=== PATIENT | female | born 1985 | race Two or more races ===

== ENCOUNTER 2019-12-22 14:21 | Outpatient (REF) | payer MEDICARE, MEDICAID, SELFPAY | END 2019-12-22 14:22 | disposition home or self-care (01) | LOC: HO.LAB 14:21 | PROVIDERS: PCP Registered Nurse; Visit Provider Internal Medicine | DX: Z20.828 Contact with and (suspected) exposure to other viral communicable diseases (principal) | CPT/HCPCS: C9803; U0003 ==

== ENCOUNTER 2020-06-04 11:31 | Outpatient (REF) | payer MEDICAID, SELFPAY ==
[2020-06-04 13:01] LABS: COVID-19 Test Negative (Negative)
== END 2020-06-04 11:32 | disposition home or self-care (01) ==
LOC: HO.LAB 11:31
PROVIDERS: Visit Provider Internal Medicine
DX: Z20.822 Contact with and (suspected) exposure to COVID-19 (principal)
CPT/HCPCS: 36415; 87635; C9803

== ENCOUNTER 2020-06-08 16:19 | Emergency (ER) | payer MEDICAID, SELFPAY ==
--- NOTE | ~2020-06-08 | CT_ITS ---
EXAMINATION: CT ANGIOGRAM BRAIN, HEAD CLINICAL INFORMATION: headaches, balance issues, s/p J J shot COMPARISON: None TECHNIQUE: Test bolus sequences followed by intravenous administration 70 mL of Omnipaque 350 intravenous contrast. Helical imaging was performed in the axial plane from the skull base to the vertex. Delayed postcontrast imaging of the head was also performed. The data was processed at the dental technologist workstation for generation of MIP sequences. Three-dimensional volume rendered reformatted images were also generated at an offline 3-D workstation. This CT examination was performed using dose optimization techniques as appropriate, variously including the following: *Automated exposure control *Adjustment of mA and/or kV according to patient size (this includes techniques or standardized protocols for targeted exams where dose is matched to indication/reason for exam; i.e. extremities or head) *Use of iterative reconstruction technique DLP: 2217 mGy-cm FINDINGS: CT head: There is no intracranial hemorrhage, extra-axial collection, mass effect, or territorial infarction. An area of hypoattenuation is seen along the lateral aspect of the left posterior temporal lobe as demonstrated on series 5 image 13/48. However, on the postcontrast images, no definite abnormal hypoattenuation is seen within this region suggesting the finding is artifactual. No abnormal enhancement is seen on the postcontrast images. The imaged portions of the paranasal sinuses and mastoid air cells are clear. Head CTA: The anterior and posterior circulations appear patent without stenosis. No aneurysm is seen. On the delayed images, the superficial and deep dural venous sinuses appear patent without filling defect to suggest thrombus. The left transverse/sigmoid sinus is nondominant and difficult to evaluate the inferior aspect of the skull base due to poor opacification. CT/CT angio head IMPRESSION: No intracranial abnormality identified.
[2020-06-08 17:07] VITALS: BP 110/51; PULSE 78; RESP 18; TEMP 36.6; O2SAT 100; BMI 20.2
[2020-06-08 18:18] LABS: MANUAL DIFF FLAG NO
[2020-06-08 18:38] VITALS: BP 129/79; PULSE 83; RESP 15; TEMP 37; O2SAT 99
[2020-06-08 18:39] LABS: Basophils Absolute Auto 0.1 X10*3/uL (0.0-0.2); Basophils Percent Auto 0.7 % (0-2); Eosinophils Absolute Auto 0.1 X10*3/uL (0.0-0.4); Eosinophils Percent Auto 1.2 % (0-4); Hematocrit 36.2 % (37-47); Hemoglobin 12.3 g/dl (12.0-16.0); Imm Gran Abs Auto 0.01 X10*3/uL (0.00-0.03); Imm Gran Pct Auto 0.1 % (0.0-0.4); Lymphocytes Absolute Auto 2.3 X10*3/uL (1.2-4.9); Lymphocytes Percent Auto 30.9 % (20-40); Mean Corpuscular Hemoglobin 31.5 pg (27.0-33.0); Mean Corpuscular Volume 92.8 fL (80-98); Mean Platelet Volume 9.6 fL (9.4-12.3); Monocytes Absolute Auto 0.3 X10*3/uL (0.1-1.2); Monocytes Percent Auto 3.7 % (2-11); Neutrophils Absolute Auto 4.7 X10*3/uL (2.0-8.3); Neutrophils Percent Auto 63.4 % (45-73); Platelet Count 277 X10*3/uL (160-400); Red Cell Distribution Width 12.3 % (11.0-16.0); White Blood Count 7.4 X10*3/uL (4.8-10.8)
[2020-06-08 18:44] LABS: Anion Gap 11 (12-20); Blood Urea Nitrogen 7 mg/dL (9-16); Calcium 9.4 mg/dL (8.4-10.2); Carbon Dioxide 28 mmol/L (22-29); Chloride 105 mmol/L (96-108); Creatinine Clr Calc Pharmacy 77.9; Estimated Glomerular Filt Rate > 60; Glucose Random 83 mg/dL (60-115); Sodium 140 mmol/L (135-145)
--- NOTE | 2020-06-08 18:51 | ED_ITS ---
HPI - Headache General Chief Complaint: Headache Stated Complaint: Headache Time Seen by Provider: 06/08/20 18:38 Source: patient Mode of arrival: ambulatory Limitations: no limitations History of Present Illness HPI Narrative: 35 y/o female with history of HIV on HAART with undetectable viral load presents to the ED with on/off headaches for the last 5 days. She described them as pressure and they are located all over her head. At the worst they are a 5/10 and bothersome. She is sensitive to light. She received the J&J COVID vaccination on 05/14 and she is very concerned she has a blood clot. She also reports issues with her balance. Her mother had history of strokes and she reports having a brain MRI done 1 year ago at [facility] and it was normal. She denies weakness, numbness, tingling, neck pain, fever, or chills. She currently has no headache. She only tried 1 dose of Tylenol 500 mg for the headache in the last 5 days. MD elicited complaint: headache Pertinent past history: HIV Onset (ago): day(s) (5) Onset description: gradually Location: generalized Severity: moderate Pain scale (0-10): 5 Quality & Timing: squeezing and progressively worsening Exacerbating factors: light Relieving factors: rest Context: new medication (COVID vaccine) Associated symptoms: none Treatments prior to arrival: none Related Data Allergies Allergy/AdvReac Type Severity Reaction Status Date / Time No Known Allergies Allergy Verified 06/08/20 17:07 Review of Systems Review of Systems: Constitutional: No Fever, No Chills ENT/Mouth: No sore throat, No Rhinorrhea, No Swallowing Difficulty Eyes: No Eye Pain, No Swelling, No Redness Cardiovascular: No Chest Pain, No SOB, No Orthopnea, No Edema Respiratory: No Cough, No Sputum, No Wheezing, No dyspnea Gastrointestinal: No Nausea, No Vomiting, No Diarrhea, No abdominal Pain Genitourinary: No Dysuria, No Urinary Frequency, No Hematuria Musculoskeletal: No joint pain, No Myalgias Skin: No Skin Lesions, No rash Neuro: No Weakness, No Numbness, No Dizziness, + Headache Psych: No Anxiety/Panic, No Depression Heme/Lymph: No Bruising, No Lymphadenopathy Endocrine: No Polyuria, No Polydipsia PMFSH Past Medical History Attestation statement: The following information was validated with the patient. Medical History HIV (human immunodeficiency virus infection) Social History Social History Alcohol intake: never Smoking Status: Never smoker Use of substances other than those prescribed or required for medical reasons: No Advance Directives: No Advance Directives Information Provided: Yes Physical Exam Vital Signs: Vital Signs: Last Vital Signs Temp 98.1 F 06/08/20 20:20 Pulse 70 06/08/20 20:20 Resp 16 06/08/20 20:20 BP 102/63 06/08/20 20:20 Pulse Ox 99 06/08/20 20:20 Body Mass Index 20.2 Appearance: Alert. Oriented X3. No acute distress. Eyes: Pupils equal, round and reactive to light. ENT: Pharynx normal. Neck: Normal inspection. Neck supple. CVS: Normal heart rate and rhythm. Pulses normal. Respiratory: No respiratory distress. Breath sounds normal. Abdomen: Soft and nontender. +BS x4 Skin: Skin warm and dry. Normal skin color. Normal skin turgor. No rashes. Extremities: No lower extremity edema. Neuro: Oriented X 3. No motor deficit. No sensory deficit. Ambulates with steady gait. NIH Stroke Scale Internal: Initial- Upon Arrival Level of Consciousness: Alert Level of Consciousness Questions: Answers both questions correctly Level of Consciousness Commands: Performs both tasks correctly Best Gaze: Normal Visual: No visual loss Facial Palsy: Normal Motor Arm (Right): No drift Motor Arm (Left): No drift Motor Leg (Right): No drift Motor Leg (Left): No drift Limb Ataxia: Absent Sensory: Normal Best Language: No aphasia Dysarthia: Normal Extinction and Inattention: No abnormality Score: 0 Course Course Course Narrative: 35 y/o female presenting with 5 days of headache after receiving the J&J COVID vaccine 3+ weeks ago. Also reports balance issues over the last several months. Had normal blood work with her PCP after this was reported to them. Very much doubt cavernous sinus thrombosis, however given her severe anxiety about it & report of balance disturbance, will proceed with CT brain. Reevaluation(s) Reevaluation #1: CT scan is negative. Labs are unremarkable. Neuro exam is nonfocal and she remains headache free. She is stable for discharge with plan to f/u with PCP. MDM - Headache Lab Data Result diagrams: 06/08/20 18:07 04/30/21 18:07 Labs: Lab Results 06/08/20 06/08/20 06/08/20 Range/Units 18:07 18:07 18:07 WBC 7.4 (4.8-10.8) X10*3/uL RBC 3.90 L (4.20-5.50) X10*6/uL Hgb 12.3 (12.0-16.0) g/dl Hct 36.2 L (37-47) % MCV 92.8 (80-98) fL MCH 31.5 (27.0-33.0) pg MCHC 34.0 (31.0-35.0) g/dl RDW 12.3 (11.0-16.0) % Plt Count 277 (160-400) X10*3/uL MPV 9.6 (9.4-12.3) fL Immature Gran % (Auto) 0.1 (0.0-0.4) % Neut % (Auto) 63.4 (45-73) % Lymph % (Auto) 30.9 (20-40) % [place] % (Auto) 3.7 (2-11) % Eos % (Auto) 1.2 (0-4) % Baso % (Auto) 0.7 (0-2) % Lymph # (Auto) 2.3 (1.2-4.9) X10*3/uL [place] # (Auto) 0.3 (0.1-1.2) X10*3/uL Eos # (Auto) 0.1 (0.0-0.4) X10*3/uL Baso # (Auto) 0.1 (0.0-0.2) X10*3/uL Abs Immat Gran (auto) 0.01 (0.00-0.03) X10*3/uL Absolute Neuts (auto) 4.7 (2.0-8.3) X10*3/uL Absolute Nucleated RBC 0.000 (0.0-0.012) X10*3/uL Nucleated RBC % (auto) 0.0 (0.0-0.2) /100WBC Hold Blue Top SEE NOTE Sodium 140 (135-145) mmol/L Potassium 4.0 (3.3-5.1) mmol/L Chloride 105 (96-108) mmol/L Carbon Dioxide 28 (22-29) mmol/L Anion Gap 11 L (12-20) BUN 7 L (9-16) mg/dL Creatinine 0.68 (0.5-1.4) mg/dL Estim Creat Clear Calc 77.9 Estimated GFR > 60 Random Glucose 83 (60-115) mg/dL Calcium 9.4 (8.4-10.2) mg/dL Urine Color Urine Appearance Urine pH (5.0-8.0) Ur Specific [place] (1.005-1.025) Urine Protein (NEG-TRACE) MG/DL Urine Glucose (UA) (NEG) MG/DL Urine Ketones (NEG) MG/DL Urine Blood (NEG) Urine Nitrite (NEG) Ur Leukocyte Esterase (NEG) Urine RBC (0) /HPF Urine WBC (0-4) /HPF Ur Squamous Epith Cells /LPF Urine Bacteria /LPF Urine Test (NEGATIVE) 06/08/20 06/08/20 Range/Units 19:52 19:53 WBC (4.8-10.8) X10*3/uL RBC (4.20-5.50) X10*6/uL Hgb (12.0-16.0) g/dl Hct (37-47) % MCV (80-98) fL MCH (27.0-33.0) pg MCHC (31.0-35.0) g/dl RDW (11.0-16.0) % Plt Count (160-400) X10*3/uL MPV (9.4-12.3) fL Immature Gran % (Auto) (0.0-0.4) % Neut % (Auto) (45-73) % Lymph % (Auto) (20-40) % [place] % (Auto) (2-11) % Eos % (Auto) (0-4) % Baso % (Auto) (0-2) % Lymph # (Auto) (1.2-4.9) X10*3/uL [place] # (Auto) (0.1-1.2) X10*3/uL Eos # (Auto) (0.0-0.4) X10*3/uL Baso # (Auto) (0.0-0.2) X10*3/uL Abs Immat Gran (auto) (0.00-0.03) X10*3/uL Absolute Neuts (auto) (2.0-8.3) X10*3/uL Absolute Nucleated RBC (0.0-0.012) X10*3/uL Nucleated RBC % (auto) (0.0-0.2) /100WBC Hold Blue Top Sodium (135-145) mmol/L Potassium (3.3-5.1) mmol/L Chloride (96-108) mmol/L Carbon Dioxide (22-29) mmol/L Anion Gap (12-20) BUN (9-16) mg/dL Creatinine (0.5-1.4) mg/dL Estim Creat Clear Calc Estimated GFR Random Glucose (60-115) mg/dL Calcium (8.4-10.2) mg/dL Urine Color YELLOW Urine Appearance CLEAR Urine pH 6.5 (5.0-8.0) Ur Specific [place] 1.020 (1.005-1.025) Urine Protein NEG (NEG-TRACE) MG/DL Urine Glucose (UA) NEG (NEG) MG/DL Urine Ketones 15 (NEG) MG/DL Urine Blood TRACE (NEG) Urine Nitrite NEG (NEG) Ur Leukocyte Esterase NEG (NEG) Urine RBC 0-2 (0) /HPF Urine WBC 0 (0-4) /HPF Ur Squamous Epith Cells NONE /LPF Urine Bacteria NONE /LPF Urine Test NEGATIVE (NEGATIVE) Discharge Plan Discharge Clinical Impression: Headache Qualifiers: Headache type: unspecified Headache chronicity pattern: acute headache Intractability: not intractable Qualified Code(s): R51.9 - Headache, unspecified Patient Disposition: Home, Self-Care Instructions: General Headache (ED) Additional Instructions: Your blood workup today was unremarkable. Your urine test showed no evidence of infection. Your CT scan of your brain was normal. Recommend trial of Tylenol 975 mg every 6 hours as needed for headaches. You can also try ibuprofen 600 mg every 6 hours as needed. If any of your symptoms worsen come back to the ER for further evaluation.
[2020-06-08 20:07] LABS: Glucose Urine UA NEG (NEG); Leukocyte Esterase Urine NEG (NEG); Nitrite Urine NEG (NEG); PH 6.5 (5.0-8.0); Urine Blood TRACE (NEG); Urine Ketones 15 MG/DL (NEG); Urine Protein NEG (NEG-TRACE)
[2020-06-08 20:13] LABS: Appearance Urine CLEAR; Color Urine YELLOW
[2020-06-08 20:14] LABS: UPreg QC Valid YES; Urine Pregnancy NEGATIVE (NEGATIVE)
[2020-06-08 20:18] LABS: RBC Urine 0-2 /HPF (0); WBC Urine 0 /HPF (0-4)
[2020-06-08 20:20] VITALS: BP 102/63; PULSE 70; RESP 16; TEMP 36.7; O2SAT 99
[2020-06-08] MEDS: iohexoL 350 MG/ML 100 ML INFUS..BTL IV (20:44)
== END 2020-06-08 21:58 | disposition home or self-care (01) ==
PROVIDERS: Physician Assistant; Emergency Provider Internal Medicine; PCP Registered Nurse
DX: R51.9 Headache, unspecified (principal); B20 Human immunodeficiency virus [HIV] disease
CPT/HCPCS: 36415; 70496; 80048; 81001; 81025; 85025; 99284; 99285; Q9967

== ENCOUNTER 2020-09-04 21:32 | Emergency (ER) | payer MEDICAID, SELFPAY ==
--- NOTE | ~2020-09-04 | XR_ITS ---
EXAMINATION: XR CERVICAL SPINE CLINICAL INFORMATION: Neck pain COMPARISON: None TECHNIQUE: 3 views of the cervical spine were obtained. FINDINGS: Degenerative changes are present at C5-C6 with some mild disc space narrowing endplate sclerosis and osteophyte formation. No prevertebral soft tissue swelling, fractures or subluxations are seen. There are some ovoid calcifications present anterior to the odontoid and C2 without soft tissue swelling. Findings probably represents an elongated styloid process. XR/XR cervical spine 3V IMPRESSION: Degenerative changes C5-C6.
[2020-09-04 21:58] VITALS: BP 105/66; PULSE 60; RESP 16; TEMP 36.7; O2SAT 100; BMI 21.2
--- NOTE | 2020-09-04 23:47 | ED_ITS ---
HPI - Neck Pain/Injury General Chief Complaint: Neck Pain/Injury Stated Complaint: neck pain Time Seen by Provider: 09/04/20 21:54 Source: patient Mode of arrival: ambulatory Limitations: no limitations History of Present Illness HPI Narrative: 35 years old female came in for evaluation neck pain that radiating to the back of right shoulder. Symptoms started 2 days ago, symptoms are constant, worsening with turning the head to the right side, pain on the right side of the neck radiate up to the base of the head and also radiates down to right scapular area. No fever, no chills, no photophobia, no neck stiffness, no exposure to sick contact. Patient also declined any recent injury or trauma, no recent heavy lifting. Related Data Previous Rx's Medication Instructions Recorded cyclobenzaprine 10 mg PO TID PRN #14 tab 09/04/20 ibuprofen 400 mg PO Q8H PRN #20 tab 09/04/20 Allergies Allergy/AdvReac Type Severity Reaction Status Date / Time No Known Allergies Allergy Verified 09/04/20 22:04 Review of Systems Review of Systems: All other systems are reviewed and are negative Constitutional: Reports as per HPI and Reports no additional constitutional complaints Eyes: Reports as per HPI and Reports no additional eye complaints Reports system reviewed and no additional complaints, except as documented Cardiovascular: Reports as per HPI and Reports no additional cardiovascular complaints Respiratory: Reports as per HPI and Reports no additional respiratory complaints Gastrointestinal: Reports as per HPI and Reports no additional gastrointestinal complaints Genitourinary: Reports no additional female genitourinary complaints Musculoskeletal: Reports no additional musculoskeletal complaints Skin/Breast: Reports system reviewed and no additional complaints, except as docu Psychiatric: Reports no additional psychiatric complaints Endocrine: Reports no additional endocrine complaints Hematologic/Lymphatic: Reports no additional hematologic/lymphatic complaints Allergic/Immunologic: Reports no additional allergic/immunologic complaints Reports system reviewed and no additional complaints, except as documented and Reports Abnormal speech present [facility] Past Medical History Medical History HIV (human immunodeficiency virus infection) Social History Social History Alcohol intake: never Advance Directives: No Advance Directives Information Provided: No Patient : No Physical Exam Vital Signs: Vital Signs: Last Vital Signs Temp 98.1 F 09/04/20 21:58 Pulse 60 09/04/20 21:58 Resp 16 09/04/20 21:58 BP 105/66 09/04/20 21:58 Pulse Ox 100 09/04/20 21:58 Body Mass Index 21.2 Vital signs have been reviewed as appeared to be correct. Blood pressure normal. Heart rate normal. Respiration rate normal. Temperature normal. Oxygen saturation normal. Appearance: Alert. Oriented X3. No acute distress. Head: Normal external exam. Normocephalic. Atraumatic. No Bradley signs noted. No raccoon eyes noted Eyes: PERRLA. EOMI. Conjunctiva and sclera normal. Eyelids normal. No photophobia. ENT: TM's Normal. Pharynx normal. Uvula midline. Moist mucous membranes. No trismus noted. No drooling noted. No muffled voice noted. Neck: Normal inspection. Neck supple. FROM. No step-off, no deformity, increased pain radiating to the right scapular area when turns head to the right side, No adenopathy. Thyroid Normal. No meningeal signs. No neck mass noted. CVS: Normal heart rate and rhythm. Heart sound normal. No murmurs noted. Pulses normal throughout. Respiratory: No respiratory distress. Painless inspiration. Breath sounds normal. No wheezes/rales/rhonchi noted. Chest nontender. No accessory muscle usage noted or decreased air movement noted. Abdomen: Soft and nontender. Bowel sounds normal in all 4 quadrants. No distention noted. No organomegaly noted. No visible injury noted. Back: No CVA tenderness. Full range of motion noted. Skin: Skin warm and dry. Normal skin color. Normal skin turgor. No rashes/lesions/lacerations noted. Extremities: No lower extremity edema. Extremities exhibit normal range of motion. Extremities nontender. Neuro: Oriented X 3. No motor deficit. No sensory deficit. Reflexes normal. Course Course Course Narrative: Assessment and plan. 35-year-old female came in with neck pain, physical exam is consistent with cer vical radiculopathy. No neurological deficit, x-ray of the neck showed no acute trauma. Patient was instructed to avoid any strenuous activity, start on NSAIDs, and muscle relaxant and follow-up with PCP. MDM - Neck Pain/Injury Lab Data Labs: Lab Results 09/05/20 09/05/20 Range/Units 00:50 00:50 Urine Color YELLOW Urine Appearance CLEAR Urine pH 6.5 (5.0-8.0) Ur Specific [place] 1.025 (1.005-1.025) Urine Protein NEG (NEG-TRACE) MG/DL Urine Glucose (UA) NEG (NEG) MG/DL Urine Ketones NEG (NEG) MG/DL Urine Blood TRACE (NEG) Urine Nitrite NEG (NEG) Ur Leukocyte Esterase NEG (NEG) Urine RBC 1-4 (0) /HPF Urine WBC 0-2 (0-4) /HPF Ur Squamous Epith Cells 1+ /LPF Urine Bacteria 1+ /LPF Urine Test NEGATIVE (NEGATIVE) Imaging Data C-spine x-ray: Radiologist's impression: No acute pathology. Discharge Plan Discharge Clinical Impression: Cervical radiculopathy Patient Disposition: Home, Self-Care Instructions: Cervical Radiculopathy (ED) Prescriptions: New ibuprofen 400 mg tablet 400 mg PO Q8H PRN (Reason: pain) Qty: 20 RF: 0 cyclobenzaprine 10 mg tablet 10 mg PO TID PRN (Reason: muscle spasm) Qty: 14 RF: 0 Referrals: Marshall Teran PA-C [Primary Care Provider] - 2 days
[2020-09-05] MEDS: Ibuprofen 400 MG TABLET PO (00:12)
[2020-09-05 01:00] LABS: Glucose Urine UA NEG (NEG); Leukocyte Esterase Urine NEG (NEG); Nitrite Urine NEG (NEG); PH 6.5 (5.0-8.0); Specific Gravity - Urine 1.025 (1.005-1.025); Urine Blood TRACE (NEG); Urine Ketones NEG (NEG); Urine Protein NEG (NEG-TRACE)
[2020-09-05 01:01] LABS: Appearance Urine CLEAR; Color Urine YELLOW
[2020-09-05 01:03] LABS: UPreg QC Valid YES; Urine Pregnancy NEGATIVE (NEGATIVE)
[2020-09-05 01:07] LABS: Bacteria Urine 1+ /LPF; Squamous Epithelial Cell Urine 1+ /LPF; WBC Urine 0-2 /HPF (0-4)
== END 2020-09-05 01:21 | disposition home or self-care (01) ==
LOC: HO.ED 09-05
PROVIDERS: Student in an Organized Health Care Education/Training Program; Emergency Provider Emergency Medicine; PCP Registered Nurse
DX: M54.12 Radiculopathy, cervical region (principal); B20 Human immunodeficiency virus [HIV] disease
CPT/HCPCS: 72040; 81001; 81025; 99283; 99284

== ENCOUNTER 2020-12-31 17:51 | Emergency (ER) | payer MEDICAID, SELFPAY ==
--- NOTE | ~2020-12-31 | CT_ITS ---
EXAMINATION: CT HEAD WITHOUT CONTRAST CT CERVICAL SPINE WITHOUT CONTRAST CLINICAL INFORMATION: Dizziness. Headache. COMPARISON: CTA head dated 06/08/2020. Cervical spine radiographs dated 09/05/2020. TECHNIQUE: Contiguous axial imaging was performed from the skull base to vertex without intravenous administration of contrast. Contiguous axial CT images of the cervical spine were obtained without contrast. Sagittal and coronal reformats were provided and reviewed. This CT examination was performed using dose optimization techniques as appropriate, variously including the following: *Automated exposure control. *Adjustment of mA and/or kV according to patient size (this includes techniques or standardized protocols for targeted exams where dose is matched to indication/reason for exam; i.e. extremities or head). *Use of iterative reconstruction technique. DLP: 806 mGy-cm FINDINGS: HEAD: There is no evidence of acute intracranial hemorrhage or territorial infarction. No abnormal mass effect or midline shift is seen. Hollis to white matter differentiation is well preserved. No extra-axial fluid collections are identified. The ventricles are normal in size. There is no abnormal attenuation within the brain parenchyma. The osseous structures and soft tissues are normal. The mastoid air cells and visualized portions of the paranasal sinuses are well aerated. CERVICAL SPINE: Mild reversal of the normal cervical lordosis, which may be positional or related to muscular spasm. No acute fracture or subluxation. No loss of vertebral body height. Mild loss of intervertebral disc height with anterior endplate osteophytes at C5-C6, unchanged. Unremarkable facet joints. No lytic or blastic osseous lesion. Unremarkable prevertebral soft tissues. No abnormal soft tissue mass or fluid collection. Thyroid within normal limits. Visualized lung apices are clear. No significant central canal or neural foraminal stenosis. CT/CT cervical spine wo con IMPRESSION: HEAD: No acute intracranial hemorrhage or mass effect. CERVICAL SPINE: No acute fracture or subluxation. Mild reversal of the normal cervical lordosis, which may be positional or related to muscular spasm. Mild degenerative disc disease at C5-C6.
--- NOTE | 2020-12-31 19:02 | ECG_ITS ---
Test Reason : Dizziness Blood Pressure : / mmHG Vent. Rate : 075 BPM Atrial Rate : 075 BPM P-R Int : 114 ms QRS Dur : 084 ms QT Int : 382 ms P-R-T Axes : 052 061 055 degrees QTc Int : 426 ms Normal sinus rhythm with sinus arrhythmia RSR' or QR pattern in V1 suggests right ventricular conduction delay Otherwise normal ECG No previous ECGs available Referred By: Generic ED Physician Electronically Signed By:SADIQ COLEMAN MD
[2020-12-31 19:52] VITALS: BP 110/72; PULSE 71; RESP 20; TEMP 36.8; O2SAT 100; BMI 21.2
[2020-12-31 19:58] LABS: MANUAL DIFF FLAG NO
[2020-12-31 19:59] LABS: Basophils Absolute Auto 0.1 X10*3/uL (0.0-0.2); Basophils Percent Auto 0.6 % (0-2); Eosinophils Absolute Auto 0.1 X10*3/uL (0.0-0.4); Eosinophils Percent Auto 1.4 % (0-4); Hematocrit 36.4 % (37.0-47.0); Hemoglobin 12.8 g/dl (12.0-16.0); Imm Gran Abs Auto 0.02 X10*3/uL (0.00-0.03); Imm Gran Pct Auto 0.2 % (0.0-0.4); Lymphocytes Absolute Auto 2.7 X10*3/uL (1.2-4.9); Lymphocytes Percent Auto 31.7 % (20-40); Mean Corpuscular HGB Conc 35.2 g/dl (31.0-35.0); Mean Corpuscular Hemoglobin 32.5 pg (27.0-33.0); Mean Corpuscular Volume 92.4 fL (80.0-98.0); Mean Platelet Volume 9.1 fL (9.4-12.3); Monocytes Absolute Auto 0.5 X10*3/uL (0.1-1.2); Monocytes Percent Auto 5.7 % (2-11); Neutrophils Absolute Auto 5.2 x10*3/uL (2.0-8.3); Neutrophils Percent Auto 60.4 % (45-73); Platelet Count 323 X10*3/uL (160-400); Red Blood Count 3.94 X10*6/uL (4.20-5.50); Red Cell Distribution Width 12.4 % (11.0-16.0); White Blood Count 8.7 X10*3/uL (4.8-10.8)
[2020-12-31 20:22] LABS: Anion Gap 12 (12-20); Blood Urea Nitrogen 9 mg/dL (9-16); Calcium 9.6 mg/dL (8.4-10.2); Carbon Dioxide 28 mmol/L (22-29); Chloride 104 mmol/L (96-108); Creatinine Clr Calc Pharmacy 76.8; Estimated Glomerular Filt Rate > 60; Glucose Random 96 mg/dL (60-115); Potassium 3.9 mmol/L (3.3-5.1); Sodium 140 mmol/L (135-145)
[2020-12-31 20:28] LABS: B Type Natriuretic Peptide 12 pg/mL (<100)
[2020-12-31 20:32] LABS: Appearance Urine CLEAR; Color Urine STRAW; Glucose Urine UA NEG (NEG); Leukocyte Esterase Urine NEG (NEG); Nitrite Urine NEG (NEG); UACC Culture Trigger NO; Urine Blood 1+ (NEG); Urine Ketones NEG (NEG); Urine Protein NEG (NEG-TRACE)
[2020-12-31 20:34] LABS: UPreg QC Valid YES; Urine Pregnancy NEGATIVE (NEGATIVE)
[2020-12-31 20:41] LABS: Squamous Epithelial Cell Urine 1+ /LPF; WBC Urine 0 /HPF (0-4)
--- NOTE | 2020-12-31 21:35 | ED_ITS ---
HPI - Dizziness General Chief Complaint: Dizziness Stated Complaint: Dizziness X3days Time Seen by Provider: 12/31/20 21:30 Source: patient Mode of arrival: ambulatory Limitations: no limitations History of Present Illness HPI Narrative: 35-year-old female past medical history significant for HIV presents to the emergency department with complaints of dizziness for the past 3 days. Patient tells me that she feels unbalanced when she is walking, and at times she feels as though the room is spinning. She tells me the symptoms are worse when she changes positions, and when she is moving. She also tells me she has also been experiencing associated nausea with the symptoms for the past 3 days. She feels like symptoms are not getting better, she tells me that she feels as though they are getting worse. She has never had this before. She told me she has an appointment with her primary care provider this Thursday, to address these concerns, however, she decided to come in today because she feels as though they have worsened very quickly. She denies tinnitus, vision changes, headache, pain with extraocular movements, neck pain, trauma to the area, chest pain, shortness of breath, fevers, chills, recent upper respiratory infection, difficulty speaking, weakness. Patient is not on blood thinners. MD elicited complaint: dizziness, difficulty walking and vertigo Pertinent past history: other (HIV) Onset (ago): day(s) (3) Timing: gradual onset (progressivly worsening ) Severity: severe Description: sense of movement, room spinning and off-balance Context: change in body position and other (walking) History of similar symptoms: No Exacerbating factors: movement/ambulation and change in body position Relieving factors: nothing Associated symptoms: nausea Related Data Previous Rx's Medication Instructions Recorded cyclobenzaprine 10 mg tablet 10 mg PO TID PRN #14 tab 09/04/20 ibuprofen 400 mg tablet 400 mg PO Q8H PRN #20 tab 09/04/20 meclizine 25 mg tablet 25 mg PO DAILY PRN #20 tab 12/31/20 ondansetron 4 mg disintegrating 4 mg PO DAILY PRN #10 tab 12/31/20 tablet Allergies Allergy/AdvReac Type Severity Reaction Status Date / Time No Known Allergies Allergy Verified 09/04/20 22:04 Review of Systems Review of Systems: Constitutional : No Weight loss, No Fever, No Chills, No Fatigue, No Malaise ENT/Mouth : No sore throat, No Rhinorrhea Eyes: No Eye Pain, No Swelling, No Redness Cardiovascular : No Chest Pain, No SOB, No Dyspnea on Exertion, No Orthopnea, No Edema, No Palpitations Respiratory : No Cough, No Sputum, No Wheezing Gastrointestinal : + Nausea, No Vomiting, No Diarrhea, No Constipation, No abdominal Pain, No Hematochezia, No Melena Genitourinary : No Dysuria, No Urinary Frequency, No Hematuria, Musculoskeletal : No joint pain, No Myalgias, No Joint Swelling Skin : No Skin Lesions, No rash Neuro : No Weakness, No Numbness, + Dizziness, No Headache All other systems reviewed and are negative [facility] Past Medical History Medical History HIV (human immunodeficiency virus infection) Social History Social History Alcohol intake: never Advance Directives: No Advance Directives Information Provided: No Patient : No Physical Exam Vital Signs: Vital Signs: Last Vital Signs Temp 98.3 F 12/31/20 19:52 Pulse 64 12/31/20 22:31 Resp 16 12/31/20 22:31 BP 112/62 12/31/20 22:31 Pulse Ox 100 12/31/20 22:31 Body Mass Index 21.2 Appearance: Alert.? Oriented X3.? No acute distress.? Head: Normocephalic, atraumatic, no step-offs or deformities. + Patient reports dizziness with rapid movement of head. Eyes: Pupils equal, round and reactive to light.?EOMI ENT: Pharynx normal.? Neck: Normal inspection.? Neck supple.?No meningeal signs CVS: Normal heart rate and rhythm.? Pulses normal.? Respiratory: No respiratory distress.? Breath sounds normal.? Abdomen: Soft and nontender.? Skin: Skin warm and dry.? Normal skin color.? Normal skin turgor.? Extremities: No lower extremity edema.? No calf ttp. 5/5 strength to bilateral upper and lower extremities Back: No midline tenderness, no C-spine tenderness, full range of motion, no CVA tenderness bilaterally Neuro: Oriented X 3.? No motor deficit.? No sensory deficit. Normal hand manufacturing electrician. Normal [id number]. Normal [id number]. Normal gait, no ataxia. Course Reevaluation(s) Reevaluation #1: Labs show no acute infection, slightly low red blood cells, however they have been low in the past. No anemia. No acute electrolyte abnormalities. The UA clean, urine negative. CT of head and neck negative. Patient's symptoms are likely vertigo. Low suspicion for intracranial hemorrhage, posterior stroke, fractures of the head. Plan at this time is to discharge patient home on meclizine, she should follow- up with her primary care provider, and ENT. She has been advised to drink plenty of fluids, and return to then emergency department with new or worsening symptoms such as vision changes, fevers, chills, headaches, shortness of breath, chest pain, weakness, changes in speech. Time: 23:11 MDM - Dizziness MDM Narrative Medical decision making narrative: [id number] This is a 35-year-old female past medical history significant for HIV presenting to the emergency department with 3 days of progressively worsening vertigo, nausea and disequilibrium. Patient tells me that she is very worried because her mom due to an ICH at a very young age, thought to be hereditary. She states that this is never happened to her before. She denies vision changes, headaches, vomiting, weakness, difficulty speaking, pain with eye movements, trauma to the head, chest pain, shortness of breath, fatigues. Patient is not on blood thinners. She tells me that other than the dizziness she is feeling great. Upon physical examination patient is well appearing, lying comfortably on the stretcher. In no distress. Vital signs are stable. S1-S2 appreciated free of murmurs. Lungs are clear to auscultation. Abdomen is soft nontender nondistended. 5/5 strength upper and lower extremities. Extraocular movements intact free of nystagmus. Pupils equal round reactive to light bilaterally. S ensation and motor intact upper and lower extremities. No focal neuro deficits. Patient ambulating with a steady gait, no ataxia. Normal finger to nose, heel to farley, hand manufacturing electrician. No C-spine tenderness, no meningeal signs. No saddle paresthesias. Patient reports dizziness with rapid movements of the head on exam. Plan at this time is to obtain basic labs, point of care, urine, CT of the cervi sarah spine, and CT of the head. She will also receive fluids, meclizine, and Zofran for her symptoms. This is most likely vertigo however based off patient's immunocompromised state, and family history a CT of the head will be done to rule out stroke/intracranial hemorrhage. I do not suspect a posterior stroke, as there are no neuro deficits, patient is able to ambulate with a steady gait, no vision changes. Medical Records Attestation: I reviewed the patient's medical records. Lab Data Attestation: I reviewed the patient's lab results. Result diagrams: 12/31/20 19:46 12/31/20 19:46 Labs: Lab Results 12/31/20 12/31/20 12/31/20 Range/Units 19:46 19:46 19:46 WBC 8.7 (4.8-10.8) X10*3/uL RBC 3.94 L (4.20-5.50) X10*6/uL Hgb 12.8 (12.0-16.0) g/dl Hct 36.4 L (37.0-47.0) % MCV 92.4 (80.0-98.0) fL MCH 32.5 (27.0-33.0) pg MCHC 35.2 H (31.0-35.0) g/dl RDW 12.4 (11.0-16.0) % Plt Count 323 (160-400) X10*3/uL MPV 9.1 L (9.4-12.3) fL Immature Gran % (Auto) 0.2 (0.0-0.4) % Neut % (Auto) 60.4 (45-73) % Lymph % (Auto) 31.7 (20-40) % [place] % (Auto) 5.7 (2-11) % Eos % (Auto) 1.4 (0-4) % Baso % (Auto) 0.6 (0-2) % Lymph # (Auto) 2.7 (1.2-4.9) X10*3/uL [place] # (Auto) 0.5 (0.1-1.2) X10*3/uL Eos # (Auto) 0.1 (0.0-0.4) X10*3/uL Baso # (Auto) 0.1 (0.0-0.2) X10*3/uL Abs Immat Gran (auto) 0.02 (0.00-0.03) X10*3/uL Absolute Neuts (auto) 5.2 (2.0-8.3) x10*3/uL Absolute Nucleated RBC 0.000 (0.0-0.012) X10*3/uL Nucleated RBC % (auto) 0.0 (0.0-0.2) /100WBC Sodium 140 (135-145) mmol/L Potassium 3.9 (3.3-5.1) mmol/L Chloride 104 (96-108) mmol/L Carbon Dioxide 28 (22-29) mmol/L Anion Gap 12 (12-20) BUN 9 (9-16) mg/dL Creatinine 0.69 (0.5-1.4) mg/dL Estim Creat Clear Calc 76.8 Estimated GFR > 60 Random Glucose 96 (60-115) mg/dL Calcium 9.6 (8.4-10.2) mg/dL B-Natriuretic Peptide 12 (<100) pg/mL Urine Color Urine Appearance Urine pH (5.0-8.0) Ur Specific [place] (1.005-1.025) Urine Protein (NEG-TRACE) MG/DL Urine Glucose (UA) (NEG) MG/DL Urine Ketones (NEG) MG/DL Urine Blood (NEG) Urine Nitrite (NEG) Ur Leukocyte Esterase (NEG) Urine RBC (0) /HPF Urine WBC (0-4) /HPF Ur Squamous Epith Cells /LPF Urine Bacteria /LPF Urine Test (NEGATIVE) 12/31/20 12/31/20 Range/Units 20:14 20:14 WBC (4.8-10.8) X10*3/uL RBC (4.20-5.50) X10*6/uL Hgb (12.0-16.0) g/dl Hct (37.0-47.0) % MCV (80.0-98.0) fL MCH (27.0-33.0) pg MCHC (31.0-35.0) g/dl RDW (11.0-16.0) % Plt Count (160-400) X10*3/uL MPV (9.4-12.3) fL Immature Gran % (Auto) (0.0-0.4) % Neut % (Auto) (45-73) % Lymph % (Auto) (20-40) % [place] % (Auto) (2-11) % Eos % (Auto) (0-4) % Baso % (Auto) (0-2) % Lymph # (Auto) (1.2-4.9) X10*3/uL [place] # (Auto) (0.1-1.2) X10*3/uL Eos # (Auto) (0.0-0.4) X10*3/uL Baso # (Auto) (0.0-0.2) X10*3/uL Abs Immat Gran (auto) (0.00-0.03) X10*3/uL Absolute Neuts (auto) (2.0-8.3) x10*3/uL Absolute Nucleated RBC (0.0-0.012) X10*3/uL Nucleated RBC % (auto) (0.0-0.2) /100WBC Sodium (135-145) mmol/L Potassium (3.3-5.1) mmol/L Chloride (96-108) mmol/L Carbon Dioxide (22-29) mmol/L Anion Gap (12-20) BUN (9-16) mg/dL Creatinine (0.5-1.4) mg/dL Estim Creat Clear Calc Estimated GFR Random Glucose (60-115) mg/dL Calcium (8.4-10.2) mg/dL B-Natriuretic Peptide (<100) pg/mL Urine Color STRAW Urine Appearance CLEAR Urine pH 6.0 (5.0-8.0) Ur Specific [place] 1.020 (1.005-1.025) Urine Protein NEG (NEG-TRACE) MG/DL Urine Glucose (UA) NEG (NEG) MG/DL Urine Ketones NEG (NEG) MG/DL Urine Blood 1+ H (NEG) Urine Nitrite NEG (NEG) Ur Leukocyte Esterase NEG (NEG) Urine RBC 1-4 (0) /HPF Urine WBC 0 (0-4) /HPF Ur Squamous Epith Cells 1+ /LPF Urine Bacteria NONE /LPF Urine Test NEGATIVE (NEGATIVE) Imaging Data CT of head and neck: Attestation: I personally reviewed and interpreted this imaging study as follows: Radiologist's impression: FINDINGS: HEAD: There is no evidence of acute intracranial hemorrhage or territorial infarction. No abnormal mass effect or midline shift is seen. Hollis to white matter differentiation is well preserved. No extra-axial fluid collections are identified. The ventricles are normal in size. There is no abnormal attenuation within the brain parenchyma. The osseous structures and soft tissues are normal. The mastoid air cells and visualized portions of the paranasal sinuses are well aerated. CERVICAL SPINE: Mild reversal of the normal cervical lordosis, which may be positional or related to muscular spasm. No acute fracture or subluxation. No loss of vertebral body height. Mild loss of intervertebral disc height with anterior endplate osteophytes at C5-C6, unchanged. Unremarkable facet joints. No lytic or blastic osseous lesion. Unremarkable prevertebral soft tissues. No abnormal soft tissue mass or fluid collection. Thyroid within normal limits. Visualized lung apices are clear. No significant central canal or neural foraminal stenosis. ? CT/CT head/brain wo con IMPRESSION: ? HEAD: No acute intracranial hemorrhage or mass effect. ? CERVICAL SPINE: No acute fracture or subluxation. Mild reversal of the normal cervical lordosis, which may be positional or related to muscular spasm. Mild degenerative disc disease at C5-C6. ECG Data Attestation: I personally reviewed and interpreted this ECG as follows: ECG interpretation date: 12/31/20 ECG interpretation time: 19:37 Prior ECG tracings: not available for review Interpretation: Ventricular rate is 75, VA normal, QRS normal, QT/QTC normal. EKG shows normal sinus rhythm with sinus arrhythmia, no ST elevations or inversions. No acute ischemia. No previous EKGs to compare with. Critical Care Time Critical Care Time Critical Care Time: No Discharge Plan Discharge Clinical Impression: Vertigo Patient Disposition: Home, Self-Care Instructions: Vertigo (ED) Additional Instructions: Take your medications as prescribed. Meclizine is a medication you can take as needed for dizziness. Zofran you can take as needed for nausea/vomiting Follow-up with your primary care provider this week. Return to the emergency department with new or worsening symptoms. Such as vision changes, fevers, chills, headaches, shortness of breath, chest pain, weakness, changes in speech. In case of emergency call 911 Prescriptions: New meclizine 25 mg tablet 25 mg PO DAILY PRN (Reason: dizziness) Qty: 20 RF: 0 ondansetron 4 mg tablet,disintegrating 4 mg PO DAILY PRN (Reason: nausea and vomiting) Qty: 10 RF: 0 No Action ibuprofen 400 mg tablet 400 mg PO Q8H PRN (Reason: pain) Qty: 20 RF: 0 cyclobenzaprine 10 mg tablet 10 mg PO TID PRN (Reason: muscle spasm) Qty: 14 RF: 0 Referrals: Marshall Teran PA-C [Primary Care Provider] - 2 days Stand Alone Forms: Work/School Release
[2020-12-31] MEDS: 0.9 % Sodium Chloride 1,000 ML 999 ML IV (22:22)
[2020-12-31] MEDS: ondansetron HCL 4 MG/2 ML VIAL IVPUSH (22:26)
[2020-12-31] MEDS: Meclizine HCl 25 MG TABLET PO (22:27)
[2020-12-31 22:31] VITALS: BP 104/61; BP 112/62; BP 117/68; PULSE 56; PULSE 64; PULSE 66; RESP 16; O2SAT 100
== END 2020-12-31 23:59 | disposition home or self-care (01) ==
PROVIDERS: Emergency Provider Internal Medicine; PCP Registered Nurse
DX: R42 Dizziness and giddiness (principal); R11.0 Nausea; B20 Human immunodeficiency virus [HIV] disease
CPT/HCPCS: 36415; 70450; 72125; 80048; 81001; 81025; 83880; 85025; 93005; 96361; 96374; 99284; J2405

== ENCOUNTER 2021-10-05 20:09 | Emergency (ER) | payer MEDICAID, SELFPAY ==
--- NOTE | ~2021-10-05 | CT_ITS ---
EXAMINATION: CT ABDOMEN AND PELVIS WITHOUT CONTRAST CLINICAL INFORMATION: Right flank pain COMPARISON: 08/13/2018 TECHNIQUE: Multidetector volumetric imaging was performed from the superior aspect of the liver through the pubic symphysis. Sagittal and coronal reformatted images were obtained on the technologist's workstation. This CT examination was performed using dose optimization techniques as appropriate, variously including the following: *Automated exposure control *Adjustment of mA and/or kV according to patient size (this includes techniques or standardized protocols for targeted exams where dose is matched to indication/reason for exam; i.e. extremities or head) *Use of iterative reconstruction technique DLP: 289 mGy-cm FINDINGS: LUNG BASES: The visualized lung bases are unremarkable. LIVER, GALLBLADDER, AND BILIARY TREE: The liver is normal in size, shape, and attenuation. Small hypodensity near the dome of the liver favors a cyst. No biliary ductal dilatation is present. Gallbladder is contracted. PANCREAS: Unremarkable. SPLEEN: Unremarkable. ADRENAL GLANDS: Unremarkable. KIDNEYS AND URETERS: The kidneys are normal in size, shape, and attenuation. No hydronephrosis, hydroureter, or calculi seen. No perinephric stranding. BLADDER: Unremarkable. GASTROINTESTINAL TRACT: No evidence of bowel obstruction or significant wall thickening. The appendix is not well delineated. A curvilinear hyperdensity is noted in the anorectal region. No free air is seen. Trace pelvic free fluid is noted. ABDOMINAL WALL: No significant hernia is appreciated. LYMPH NODES: No lymphadenopathy is seen, though assessment is limited in the absence of intravenous contrast. VASCULAR: Unremarkable. PELVIC VISCERA: Unremarkable. OSSEOUS STRUCTURES: Unremarkable. CT/CT abdomen pelvis wo con IMPRESSION: Trace nonspecific pelvic free fluid, which may be physiologic. No additional acute findings identified. Curvilinear density noted in the anorectal region; clinical correlation advised.
[2021-10-05 21:21] VITALS: BP 113/62; PULSE 78; RESP 16; TEMP 36.6; O2SAT 98
--- NOTE | 2021-10-05 22:41 | ED_ITS ---
HPI - Abdominal Pain General Chief Complaint: Abdominal Pain Stated Complaint: Flank pain Time Seen by Provider: 10/05/21 22:31 Source: patient Mode of arrival: ambulatory Limitations: no limitations History of Present Illness MD elicited complaint: abdominal pain and flank pain Pertinent past history: kidney stones Onset (ago): day(s) (3) Pain Consistency: intermittent Location: RLQ and R flank Severity: mild Quality: stabbing Radiation: RLQ Exacerbating factors: nothing Relieving factors: nothing Associated symptoms: denies other symptoms Related Data Previous Rx's Medication Instructions Recorded cyclobenzaprine 10 mg tablet 10 mg PO TID PRN muscle spasm #14 09/04/20 tabs ibuprofen 400 mg tablet 400 mg PO Q8H PRN pain #20 tabs 09/04/20 meclizine 25 mg tablet 25 mg PO DAILY PRN dizziness #20 12/31/20 tabs ondansetron 4 mg disintegrating 4 mg PO DAILY PRN nausea and 12/31/20 tablet vomiting #10 tabs Allergies Allergy/AdvReac Type Severity Reaction Status Date / Time No Known Allergies Allergy Verified 10/05/21 21:21 Review of Systems Review of Systems Constitutional : No Weight loss, No Fever, No Chills ENT/Mouth : No sore throat, No Rhinorrhea Eyes: No Swelling, No Redness Cardiovascular : No Chest Pain, No SOB, NoEdema Respiratory : No Cough, No Sputum, No Wheezing Gastrointestinal : no Nausea, no Vomiting, no Diarrhea, positive abdominal Pain, No Hematochezia, No Melena Genitourinary : No Dysuria, No Urinary Frequency, No Hematuria, No Urgency Musculoskeletal : No joint pain, No Myalgias, No Joint Swelling Skin : No Skin Lesions, No rash Neuro : No Weakness, No Numbness, No Dizziness, No Headache Psych : No Anxiety/Panic, No Depression Heme/Lymph: No Bruising, No Lymphadenopathy Endocrine : No Polyuria, No Polydipsia All other systems reviewed and are negative. [facility] Past Medical History Attestation statement: The following information was validated with the patient. Medical History (Updated 10/06/21 @ 00:42 by Alexandrea Michel DO) HIV (human immunodeficiency virus infection) Renal colic Social History Social History Alcohol intake: never Patient Tobacco Use Status: Never used Tobacco Advance Directives: No Advance Directives Information Provided: No Physical Exam ED Vital Signs: Vital Signs - 24 hr 10/05/21 21:21 Temperature 97.8 F Pulse Rate 78 Respiratory Rate 16 Blood Pressure 113/62 Pulse Oximetry 98 Oxygen Delivery Method Room Air BMI result Body Mass Index 20.0 Appearance: Alert. Oriented X3. No acute distress. Eyes: Pupils equal, round and reactive to light. ENT: Pharynx normal. Neck: Normal inspection. Neck supple. CVS: Normal heart rate and rhythm. Pulses normal. Respiratory: No respiratory distress. Breath sounds normal. Abdomen: Soft and nontender. Skin: Skin warm and dry. Normal skin color. Normal skin turgor. Extremities: No lower extremity edema. No calf ttp Neuro: Oriented X 3. No motor deficit. No sensory deficit. MDM - Abdominal Pain MDM Narrative Medical decision making narrative: 36 yo female with well controlled HIV, prior renal colic is coming in with colicky R sided flank pain no associated GI or symptoms at this time will need labs, UA, CT scan for renal colic - dispo per results and findings. Lab Data Result diagrams: 10/05/21 23:07 10/05/21 23:07 Labs: Lab Results 10/05/21 10/05/21 10/05/21 Range/Units 23:07 23:07 23:07 WBC 8.1 (4.8-10.8) X10*3/uL RBC 3.93 L (4.20-5.50) X10*6/uL Hgb 12.5 (12.0-16.0) g/dl Hct 36.0 L (37.0-47.0) % MCV 91.6 (80.0-98.0) fL MCH 31.8 (27.0-33.0) pg MCHC 34.7 (31.0-35.0) g/dl RDW 12.1 (11.0-16.0) % Plt Count 267 (160-400) X10*3/uL MPV 9.2 L (9.4-12.3) fL Immature Gran % (Auto) 0.2 (0.0-0.4) % Neut % (Auto) 53.3 (45-73) % Lymph % (Auto) 38.5 (20-40) % [place] % (Auto) 6.3 (2-11) % Eos % (Auto) 1.0 (0-4) % Baso % (Auto) 0.7 (0-2) % Lymph # (Auto) 3.1 (1.2-4.9) X10*3/uL [place] # (Auto) 0.5 (0.1-1.2) X10*3/uL Eos # (Auto) 0.1 (0.0-0.4) X10*3/uL Baso # (Auto) 0.1 (0.0-0.2) X10*3/uL Abs Immat Gran (auto) 0.02 (0.00-0.03) X10*3/uL Absolute Neuts (auto) 4.3 (2.0-8.3) x10*3/uL Absolute Nucleated RBC 0.000 (0.0-0.012) X10*3/uL Nucleated RBC % (auto) 0.0 (0.0-0.2) /100WBC Sodium 139 (135-145) mmol/L Potassium 3.9 (3.3-5.1) mmol/L Chloride 104 (96-108) mmol/L Carbon Dioxide 27 (22-29) mmol/L Anion Gap 12 (12-20) BUN 6 L (9-16) mg/dL Creatinine 0.67 (0.5-1.4) mg/dL Estim Creat Clear Calc 78.4 Estimated GFR > 60 Random Glucose 85 (60-115) mg/dL Calcium 9.0 D (8.4-10.2) mg/dL Magnesium 2.0 (1.6-2.6) mg/dL Total Bilirubin 0.4 (0.0-1.0) mg/dL Direct Bilirubin 0.2 (0.0-0.5) mg/dL AST 17 (5-31) U/L ALT 8 (0-31) U/L Alkaline Phosphatase 49 (39-117) U/L Total Protein 7.4 (6.5-8.0) g/dL Albumin 4.4 (3.5-5.0) g/dL Lipase 25 (8-78) U/L Urine Color Urine Appearance Urine pH (5.0-8.0) Ur Specific [place] (1.005-1.025) Urine Protein (Neg-Trace) mg/dL Urine Glucose (UA) (Negative) mg/dL Urine Ketones (Negative) mg/dL Urine Blood (Negative) Urine Nitrite (Negative) Ur Leukocyte Esterase (Negative) Urine Test (NEGATIVE) COVID-19 (SHARA) Negative (Negative) COVID-19 Clin Com See Note 10/05/21 10/05/21 Range/Units 23:07 23:07 WBC (4.8-10.8) X10*3/uL RBC (4.20-5.50) X10*6/uL Hgb (12.0-16.0) g/dl Hct (37.0-47.0) % MCV (80.0-98.0) fL MCH (27.0-33.0) pg MCHC (31.0-35.0) g/dl RDW (11.0-16.0) % Plt Count (160-400) X10*3/uL MPV (9.4-12.3) fL Immature Gran % (Auto) (0.0-0.4) % Neut % (Auto) (45-73) % Lymph % (Auto) (20-40) % [place] % (Auto) (2-11) % Eos % (Auto) (0-4) % Baso % (Auto) (0-2) % Lymph # (Auto) (1.2-4.9) X10*3/uL [place] # (Auto) (0.1-1.2) X10*3/uL Eos # (Auto) (0.0-0.4) X10*3/uL Baso # (Auto) (0.0-0.2) X10*3/uL Abs Immat Gran (auto) (0.00-0.03) X10*3/uL Absolute Neuts (auto) (2.0-8.3) x10*3/uL Absolute Nucleated RBC (0.0-0.012) X10*3/uL Nucleated RBC % (auto) (0.0-0.2) /100WBC Sodium (135-145) mmol/L Potassium (3.3-5.1) mmol/L Chloride (96-108) mmol/L Carbon Dioxide (22-29) mmol/L Anion Gap (12-20) BUN (9-16) mg/dL Creatinine (0.5-1.4) mg/dL Estim Creat Clear Calc Estimated GFR Random Glucose (60-115) mg/dL Calcium (8.4-10.2) mg/dL Magnesium (1.6-2.6) mg/dL Total Bilirubin (0.0-1.0) mg/dL Direct Bilirubin (0.0-0.5) mg/dL AST (5-31) U/L ALT (0-31) U/L Alkaline Phosphatase (39-117) U/L Total Protein (6.5-8.0) g/dL Albumin (3.5-5.0) g/dL Lipase (8-78) U/L Urine Color Yellow Urine Appearance Cloudy Urine pH 7.0 (5.0-8.0) Ur Specific [place] 1.015 (1.005-1.025) Urine Protein Negative (Neg-Trace) mg/dL Urine Glucose (UA) Negative (Negative) mg/dL Urine Ketones Trace (Negative) mg/dL Urine Blood Negative (Negative) Urine Nitrite Negative (Negative) Ur Leukocyte Esterase Negative (Negative) Urine Test NEGATIVE (NEGATIVE) COVID-19 (SHARA) (Negative) COVID-19 Clin Com Discharge Plan Discharge Clinical Impression: Abdominal pain Qualifiers: Abdominal location: lower abdomen, unspecified Qualified Code(s): R10.30 - Lower abdominal pain, unspecified Patient Disposition: Home, Self-Care Instructions: Abdominal Pain (ED) Additional Instructions: return to ED for any worsening symptoms or concerns no acute findings on CT scan FINDINGS: LUNG BASES: The visualized lung bases are unremarkable.? LIVER, GALLBLADDER, AND BILIARY TREE: The liver is normal in size, shape, and attenuation. Small hypodensity near the dome of the liver favors a cyst. No biliary ductal dilatation is present. Gallbladder is contracted.? PANCREAS: Unremarkable.? SPLEEN: Unremarkable.? ADRENAL GLANDS: Unremarkable.? KIDNEYS AND URETERS: The kidneys are normal in size, shape, and attenuation. No hydronephrosis, hydroureter, or calculi seen. No perinephric stranding.? BLADDER: Unremarkable.? GASTROINTESTINAL TRACT: No evidence of bowel obstruction or significant wall thickening. The appendix is not well delineated. A curvilinear hyperdensity is noted in the anorectal region. No free air is seen. Trace pelvic free fluid is noted. ABDOMINAL WALL: No significant hernia is appreciated.? LYMPH NODES: No lymphadenopathy is seen, though assessment is limited in the absence of intravenous contrast. VASCULAR: Unremarkable. PELVIC VISCERA: Unremarkable.? OSSEOUS STRUCTURES: Unremarkable.? CT/CT abdomen pelvis wo con IMPRESSION: Trace nonspecific pelvic free fluid, which may be physiologic. No additional acute findings identified. Curvilinear density noted in the anorectal region; clinical correlation advised. Prescriptions: No Action ibuprofen 400 mg tablet 400 mg PO Q8H PRN (Reason: pain) Qty: 20 0RF cyclobenzaprine 10 mg tablet 10 mg PO TID PRN (Reason: muscle spasm) Qty: 14 0RF meclizine 25 mg tablet 25 mg PO DAILY PRN (Reason: dizziness) Qty: 20 0RF ondansetron 4 mg tablet,disintegrating 4 mg PO DAILY PRN (Reason: nausea and vomiting) Qty: 10 0RF
[2021-10-05 23:15] LABS: Basophils Absolute Auto 0.1 X10*3/uL (0.0-0.2); Basophils Percent Auto 0.7 % (0-2); Eosinophils Absolute Auto 0.1 X10*3/uL (0.0-0.4); Hemoglobin 12.5 g/dl (12.0-16.0); Imm Gran Abs Auto 0.02 X10*3/uL (0.00-0.03); Imm Gran Pct Auto 0.2 % (0.0-0.4); Lymphocytes Absolute Auto 3.1 X10*3/uL (1.2-4.9); Lymphocytes Percent Auto 38.5 % (20-40); MANUAL DIFF FLAG NO; Mean Corpuscular HGB Conc 34.7 g/dl (31.0-35.0); Mean Corpuscular Hemoglobin 31.8 pg (27.0-33.0); Mean Corpuscular Volume 91.6 fL (80.0-98.0); Mean Platelet Volume 9.2 fL (9.4-12.3); Monocytes Absolute Auto 0.5 X10*3/uL (0.1-1.2); Monocytes Percent Auto 6.3 % (2-11); Neutrophils Absolute Auto 4.3 x10*3/uL (2.0-8.3); Neutrophils Percent Auto 53.3 % (45-73); Platelet Count 267 X10*3/uL (160-400); Red Blood Count 3.93 X10*6/uL (4.20-5.50); Red Cell Distribution Width 12.1 % (11.0-16.0); White Blood Count 8.1 X10*3/uL (4.8-10.8)
[2021-10-05 23:17] LABS: Appearance Urine Cloudy; Color Urine Yellow; Glucose Urine UA Negative (Negative); Leukocyte Esterase Urine Negative (Negative); Nitrite Urine Negative (Negative); Specific Gravity - Urine 1.015 (1.005-1.025); Urine Blood Negative (Negative); Urine Ketones Trace mg/dL (Negative); Urine Protein Negative (Neg-Trace)
[2021-10-05 23:19] LABS: UPreg QC Valid YES; Urine Pregnancy NEGATIVE (NEGATIVE)
[2021-10-05 23:34] LABS: COVID-19 Test Negative (Negative)
[2021-10-05 23:36] LABS: Alanine Aminotransferase 8 U/L (0-31); Albumin Level 4.4 g/dL (3.5-5.0); Alkaline Phosphatase 49 U/L (39-117); Anion Gap 12 (12-20); Aspartate Amino Transferase 17 U/L (5-31); Bilirubin Direct 0.2 mg/dL (0.0-0.5); Bilirubin Total 0.4 mg/dL (0.0-1.0); Blood Urea Nitrogen 6 mg/dL (9-16); Carbon Dioxide 27 mmol/L (22-29); Chloride 104 mmol/L (96-108); Creatinine Clr Calc Pharmacy 78.4; Estimated Glomerular Filt Rate > 60; Glucose Random 85 mg/dL (60-115); Lipase 25 U/L (8-78); Potassium 3.9 mmol/L (3.3-5.1); Sodium 139 mmol/L (135-145); Total Protein 7.4 g/dL (6.5-8.0)
== END 2021-10-06 02:12 | disposition home or self-care (01) ==
PROVIDERS: Emergency Provider Emergency Medicine; PCP Registered Nurse
DX: R10.30 Lower abdominal pain, unspecified (principal); Z20.822 Contact with and (suspected) exposure to COVID-19; B20 Human immunodeficiency virus [HIV] disease
CPT/HCPCS: 74176; 80048; 80076; 81003; 81025; 83690; 83735; 85025; 87635; 99282; 99284

== ENCOUNTER 2021-12-28 17:50 | Emergency (ER) | payer MEDICAID, SELFPAY ==
[2021-12-28 17:53] VITALS: BP 118/81; PULSE 80; RESP 18; TEMP 36.6; O2SAT 98; BMI 20.4
--- NOTE | 2021-12-28 18:23 | ED_ITS ---
HPI - General Adult General Chief complaint: General Medical Stated complaint: neck and shoulder pain x 2 weeks, no injury Time Seen by Provider: 12/28/21 18:03 Source: patient Mode of arrival: ambulatory Limitations: no limitations History of Present Illness HPI narrative: 36 yold female with pmh of cervical radiculopathy presents to the ED for posterior neck pain radiating down left shoulder with tingling pain for 2 weeks. patient denies any chest pain, shortness of breath, fever, chills, photophobia, coughing, coughing up blood, recent trauma, neck stiffness, recent long travel, or recent surgery. Patient was concerned for [place] all though no family history of heartattack less than 50. Related Data Previous Rx's Medication Instructions Recorded cyclobenzaprine 10 mg tablet 10 mg PO TID PRN muscle spasm #14 09/04/20 tabs ibuprofen 400 mg tablet 400 mg PO Q8H PRN pain #20 tabs 09/04/20 meclizine 25 mg tablet 25 mg PO DAILY PRN dizziness #20 12/31/20 tabs ondansetron 4 mg disintegrating 4 mg PO DAILY PRN nausea and 12/31/20 tablet vomiting #10 tabs cyclobenzaprine 10 mg tablet 10 mg PO BEDTIME PRN muscle spasm 12/28/21 7 days #7 tabs naproxen 500 mg tablet 500 mg PO BID PRN pain 7 days #14 12/28/21 tabs prednisone 20 mg tablet 40 mg PO DAILY 5 days #10 tabs 12/28/21 Allergies Allergy/AdvReac Type Severity Reaction Status Date / Time No Known Allergies Allergy Verified 12/28/21 17:53 Review of Systems Review of Systems: left neck pain radating down leg shoulder Yes all other systems are reviewed and are negative [facility] Past Medical History Medical History (Updated 12/29/21 @ 00:03 by Jeni Dowd) HIV (human immunodeficiency virus infection) Renal colic Social History Social History Alcohol intake: never Patient Tobacco Use Status: Never used Tobacco Advance Directives: No Advance Directives Information Provided: No Physical Exam ED Vital Signs: Vital Signs - 24 hr 12/28/21 17:53 Temperature 97.8 F Pulse Rate 80 Respiratory Rate 18 Blood Pressure 118/81 Pulse Oximetry 98 Oxygen Delivery Method Room Air BMI result Body Mass Index 20.4 Const General: cooperative, healthy appearing, comfortable, no acute distress, well developed, alert, awake and Physically active Orientation/consciousness: oriented to person, oriented to place, oriented to time and patient oriented x3 [facility] Head: Yes normal to inspection, Yes No palpable skull fracture present, Yes normocephalic, Yes atraumatic and No abrasion Eyes General: appearance normal, both eyes and all related structures Neck Neck: Yes normal visual inspection, Yes full ROM, Yes no lymphadenopathy, Yes no meningeal signs, Yes trachea midline, Yes supple, No anterior neck swelling and Yes tender (posterior cervical) Chest Chest palpation & inspection: normal inspection of the chest and normal palpation of entire chest wall Resp Effort & Inspection: normal respiratory effort and able to speak in complete sentences Auscultation: clear to auscultation bilaterally Cardio Jugular venous distension: no JVD Heart sounds: S1 normal heart sound present and S2 normal heart sound present GI Inspection: Yes normal to inspection and No abdominal wall ecchymosis Palpation (GI): Soft to palpation, not firm, nontender, no guarding and not rigid General: No CVA tenderness and Yes no CVA tenderness Back/Spine/Pelvis Back: no CVA tenderness, No CVA tenderness and No back tenderness Skin General skin exam: no rashes or lesions noted, elasticity normal and turgor normal Neuro Other: Negative for any neuro deficits General: oriented to person, oriented to place, oriented to time, patient oriented x3, gait normal, tone normal, moves all extremities, Normal light touch and pain sensation, no meningeal signs, no focal motor deficits and CN's II-XI intact bilaterally Cranial nerves: Yes CN's II-XII intact bilaterally Extrem Other: Patient has movement in all extremities General: Yes normal to inspection and Yes full ROM Psych Appearance: grossly normal, well kempt and not disheveled Course Course Course Narrative: Patient well-appearing. No need for repeat imaging. CT scan 2020 positive for cervical radiculopathy. Patient has complete range of motion upper extremities. Although very unlikely patient had a cardiac event will do EKG and 1 troponin. Reevaluation(s) Reevaluation #1: EKG negative Stemi. Troponi negative. patient is safe for discharge. patient states she has not taken anything for pain the 2 weeks. WIll be discharged [facility] pain meds, steroids Time: 20:05 Medical Decision Making MDM Narrative Medical decision making narrative: cervical raduclopathy Lab Data Result diagrams: 12/28/21 18:35 12/28/21 18:35 Labs: Lab Results 12/28/21 12/28/21 12/28/21 Range/Units 18:35 18:35 18:35 WBC 7.0 (4.8-10.8) X10*3/uL RBC 3.91 L (4.20-5.50) X10*6/uL Hgb 12.5 (12.0-16.0) g/dl Hct 36.5 L (37.0-47.0) % MCV 93.4 (80.0-98.0) fL MCH 32.0 (27.0-33.0) pg MCHC 34.2 (31.0-35.0) g/dl RDW 12.4 (11.0-16.0) % Plt Count 274 (160-400) X10*3/uL MPV 9.2 L (9.4-12.3) fL Immature Gran % (Auto) 0.1 (0.0-0.4) % Neut % (Auto) 60.4 (45-73) % Lymph % (Auto) 32.3 (20-40) % [place] % (Auto) 5.2 (2-11) % Eos % (Auto) 1.0 (0-4) % Baso % (Auto) 1.0 (0-2) % Lymph # (Auto) 2.3 (1.2-4.9) X10*3/uL [place] # (Auto) 0.4 (0.1-1.2) X10*3/uL Eos # (Auto) 0.1 (0.0-0.4) X10*3/uL Baso # (Auto) 0.1 (0.0-0.2) X10*3/uL Abs Immat Gran (auto) 0.01 (0.00-0.03) X10*3/uL Absolute Neuts (auto) 4.2 (2.0-8.3) x10*3/uL Absolute Nucleated RBC 0.000 (0.0-0.012) X10*3/uL Nucleated RBC % (auto) 0.0 (0.0-0.2) /100WBC PT (10.0-13.1) SEC INR (0.9-1.1) APTT (26.0-36.4) SEC Sodium 140 (135-145) mmol/L Potassium 4.0 (3.3-5.1) mmol/L Chloride 104 (96-108) mmol/L Carbon Dioxide 25 (22-29) mmol/L Anion Gap 15 (12-20) BUN 8 L (9-16) mg/dL Creatinine 0.71 (0.5-1.4) mg/dL Estim Creat Clear Calc 74.0 Estimated GFR > 60 Random Glucose 89 (60-115) mg/dL Calcium 9.3 (8.4-10.2) mg/dL Total Bilirubin 0.3 (0.0-1.0) mg/dL AST 16 (5-31) U/L ALT 11 (0-31) U/L Alkaline Phosphatase 51 (39-117) U/L Troponin I High Sens < 3.5 (<3.5-17.0) ng/L Total Protein 7.6 (6.5-8.0) g/dL Albumin 4.5 (3.5-5.0) g/dL 12/28/21 Range/Units 18:35 WBC (4.8-10.8) X10*3/uL RBC (4.20-5.50) X10*6/uL Hgb (12.0-16.0) g/dl Hct (37.0-47.0) % MCV (80.0-98.0) fL MCH (27.0-33.0) pg MCHC (31.0-35.0) g/dl RDW (11.0-16.0) % Plt Count (160-400) X10*3/uL MPV (9.4-12.3) fL Immature Gran % (Auto) (0.0-0.4) % Neut % (Auto) (45-73) % Lymph % (Auto) (20-40) % [place] % (Auto) (2-11) % Eos % (Auto) (0-4) % Baso % (Auto) (0-2) % Lymph # (Auto) (1.2-4.9) X10*3/uL [place] # (Auto) (0.1-1.2) X10*3/uL Eos # (Auto) (0.0-0.4) X10*3/uL Baso # (Auto) (0.0-0.2) X10*3/uL Abs Immat Gran (auto) (0.00-0.03) X10*3/uL Absolute Neuts (auto) (2.0-8.3) x10*3/uL Absolute Nucleated RBC (0.0-0.012) X10*3/uL Nucleated RBC % (auto) (0.0-0.2) /100WBC PT 12.0 (10.0-13.1) SEC INR 1.0 (0.9-1.1) APTT 30.4 (26.0-36.4) SEC Sodium (135-145) mmol/L Potassium (3.3-5.1) mmol/L Chloride (96-108) mmol/L Carbon Dioxide (22-29) mmol/L Anion Gap (12-20) BUN (9-16) mg/dL Creatinine (0.5-1.4) mg/dL Estim Creat Clear Calc Estimated GFR Random Glucose (60-115) mg/dL Calcium (8.4-10.2) mg/dL Total Bilirubin (0.0-1.0) mg/dL AST (5-31) U/L ALT (0-31) U/L Alkaline Phosphatase (39-117) U/L Troponin I High Sens (<3.5-17.0) ng/L Total Protein (6.5-8.0) g/dL Albumin (3.5-5.0) g/dL ECG Data Interpretation: Sinus rhytm. Ventrate 70, SC interval 110, QRS 82, and QTC 414. negative STEMI Discharge Plan Discharge Clinical Impression: Cervical radiculopathy Patient Disposition: Home, Self-Care Instructions: Cervical Radiculopathy (ED) Additional Instructions: Your cardiac workup is negative. You will be discharged with pain medication, muscle relaxer and steroids for cervical radiculopathy. Please follow-up with primary care provider. Return to ED for any chest pain, shortness of breath, paralysis of the upper extremities, headache, photophobia, fever, chills, nausea, vomiting, or any other concerning symptoms. Prescriptions: New naproxen 500 mg tablet 500 mg PO BID PRN (Reason: pain) 7 Days Qty: 14 0RF prednisone 20 mg tablet 40 mg PO DAILY 5 Days Qty: 10 0RF cyclobenzaprine 10 mg tablet 10 mg PO BEDTIME PRN (Reason: muscle spasm) 7 Days Qty: 7 0RF No Action ibuprofen 400 mg tablet 400 mg PO Q8H PRN (Reason: pain) Qty: 20 0RF cyclobenzaprine 10 mg tablet 10 mg PO TID PRN (Reason: muscle spasm) Qty: 14 0RF meclizine 25 mg tablet 25 mg PO DAILY PRN (Reason: dizziness) Qty: 20 0RF ondansetron 4 mg tablet,disintegrating 4 mg PO DAILY PRN (Reason: nausea and vomiting) Qty: 10 0RF Stand Alone Forms: Work/School Release Interventions: ED Discharge Assessment Last Done: 12/28/21 20:21 Discharge Date/Time: 12/28/21 20:26 Print Language: Kazakh
--- NOTE | 2021-12-28 18:23 | ECG_ITS ---
Test Reason : SHOULDER PAIN Blood Pressure : / mmHG Vent. Rate : 070 BPM Atrial Rate : 070 BPM P-R Int : 110 ms QRS Dur : 082 ms QT Int : 384 ms P-R-T Axes : 041 069 057 degrees QTc Int : 414 ms Sinus rhythm with short CO RSR' or QR pattern in V1 suggests right ventricular conduction delay Otherwise normal ECG When compared with ECG of 31-DEC-2020 19:37, No significant change was found Referred By: Marino Valdez Electronically Signed By:SADIQ COLEMAN MD
[2021-12-28 18:45] LABS: MANUAL DIFF FLAG NO
[2021-12-28 18:48] LABS: Basophils Absolute Auto 0.1 X10*3/uL (0.0-0.2); Eosinophils Absolute Auto 0.1 X10*3/uL (0.0-0.4); Hematocrit 36.5 % (37.0-47.0); Hemoglobin 12.5 g/dl (12.0-16.0); Imm Gran Abs Auto 0.01 X10*3/uL (0.00-0.03); Imm Gran Pct Auto 0.1 % (0.0-0.4); Lymphocytes Absolute Auto 2.3 X10*3/uL (1.2-4.9); Lymphocytes Percent Auto 32.3 % (20-40); Mean Corpuscular HGB Conc 34.2 g/dl (31.0-35.0); Mean Corpuscular Volume 93.4 fL (80.0-98.0); Mean Platelet Volume 9.2 fL (9.4-12.3); Monocytes Absolute Auto 0.4 X10*3/uL (0.1-1.2); Monocytes Percent Auto 5.2 % (2-11); Neutrophils Absolute Auto 4.2 x10*3/uL (2.0-8.3); Neutrophils Percent Auto 60.4 % (45-73); Platelet Count 274 X10*3/uL (160-400); Red Blood Count 3.91 X10*6/uL (4.20-5.50); Red Cell Distribution Width 12.4 % (11.0-16.0)
[2021-12-28 18:56] LABS: Partial Thromboplastin Time 30.4 SEC (26.0-36.4)
[2021-12-28 19:07] LABS: Alanine Aminotransferase 11 U/L (0-31); Albumin Level 4.5 g/dL (3.5-5.0); Alkaline Phosphatase 51 U/L (39-117); Anion Gap 15 (12-20); Aspartate Amino Transferase 16 U/L (5-31); Bilirubin Total 0.3 mg/dL (0.0-1.0); Blood Urea Nitrogen 8 mg/dL (9-16); Calcium 9.3 mg/dL (8.4-10.2); Carbon Dioxide 25 mmol/L (22-29); Chloride 104 mmol/L (96-108); Estimated Glomerular Filt Rate > 60; Glucose Random 89 mg/dL (60-115); Sodium 140 mmol/L (135-145); Total Protein 7.6 g/dL (6.5-8.0)
[2021-12-28 19:19] LABS: Troponin-I High Sensitivity < 3.5 ng/L (<3.5-17.0)
== END 2021-12-28 20:26 | disposition home or self-care (01) ==
PROVIDERS: Physician Assistant; Emergency Provider Student in an Organized Health Care Education/Training Program
DX: M54.12 Radiculopathy, cervical region (principal)
CPT/HCPCS: 36415; 80053; 84484; 85025; 85610; 85730; 93005; 99283

== ENCOUNTER 2022-03-28 18:02 | Emergency (ER) | payer MEDICAID, SELFPAY ==
--- NOTE | ~2022-03-28 | US_ITS ---
EXAMINATION: US ABDOMEN COMPLETE CLINICAL INFORMATION: Epigastric abdominal pain. COMPARISON: 10/05/2021 TECHNIQUE: Real-time imaging of the abdominal viscera. FINDINGS: PANCREAS: Normal. ABDOMINAL AORTA: The proximal, mid, and distal segments are normal in caliber. INFERIOR VENA CAVA: Visualized portions are normal. LIVER: The liver is normal in size. The liver contour is normal. Parenchymal echogenicity is normal. 0.9 cm cyst in the right lobe. There is no intrahepatic biliary duct dilatation seen. GALLBLADDER: The gallbladder is contracted without evidence of stones, sludge, polyps, wall thickening or pericholecystic fluid. COMMON BILE DUCT: Normal in caliber measuring 0.2 cm in diameter. RIGHT KIDNEY: Normal. No hydronephrosis. No renal calculi or focal parenchymal lesions. The kidney measures 9.6 cm in maximum dimension. LEFT KIDNEY: Normal. No hydronephrosis. No renal calculi or focal parenchymal lesions. The kidney measures 9.9 cm in maximum dimension. SPLEEN: Normal. The spleen measures 10.4 cm in maximum dimension. FREE FLUID: None. US/US abdomen complete IMPRESSION: Unremarkable abdominal ultrasound.
--- NOTE | 2022-03-28 19:28 | ED.ABDPAIN ---
HPI - Abdominal Pain General Chief Complaint: Abdominal Pain <TAYLOR Rollins - Last Filed: 03/28/22 19:30> Stated Complaint: Abdominal/Lower back Pain <TAYLOR Rollins - Last Filed: 03/28/22 19:30> Time Seen by Provider: 03/29/22 03:26 <TAYLOR Rollins - Last Filed: 03/28/22 19:30> Source: patient <José Manuel Vazquez MD - Last Filed: 03/29/22 07:37> Mode of arrival: ambulatory <José Manuel Vazquez MD - Last Filed: 03/29/22 07:37> Limitations: no limitations <José Manuel Vazquez MD - Last Filed: 03/29/22 07:37> History of Present Illness HPI narrative: Patient with significant abdominal complaints in the past slight nausea no relation of the pain with food no urinary symptoms with no fever or chills patient had labs and ultrasound done before my evaluation ultrasound was negative for gallstones. <José Manuel Vazquez MD - Last Filed: 03/29/22 07:37> Related Data Home Medications: Previous Rx's Medication Instructions Recorded cyclobenzaprine 10 mg tablet 10 mg PO TID PRN muscle spasm #14 09/04/20 tabs ibuprofen 400 mg tablet 400 mg PO Q8H PRN pain #20 tabs 09/04/20 meclizine 25 mg tablet 25 mg PO DAILY PRN dizziness #20 12/31/20 tabs ondansetron 4 mg disintegrating 4 mg PO DAILY PRN nausea and 12/31/20 tablet vomiting #10 tabs cyclobenzaprine 10 mg tablet 10 mg PO BEDTIME PRN muscle spasm 12/28/21 7 days #7 tabs naproxen 500 mg tablet 500 mg PO BID PRN pain 7 days #14 12/28/21 tabs prednisone 20 mg tablet 40 mg PO DAILY 5 days #10 tabs 12/28/21 omeprazole 40 mg capsule,delayed 40 mg PO DAILY #30 caps 03/29/22 release sucralfate 1 gram tablet 1 g PO TID #90 tabs 03/29/22 <TAYLOR Rollins - Last Filed: 03/28/22 19:30> Allergies/Adverse Reactions: Allergies Allergy/AdvReac Type Severity Reaction Status Date / Time No Known Allergies Allergy Verified 12/28/21 17:53 <TAYLOR Rollins - Last Filed: 03/28/22 19:30> Review of Systems Review of Systems Yes all other systems are reviewed and are negative <José Manuel Vazquez MD - Last Filed: 03/29/22 07:37> [facility] Past Medical History Medical History: Medical History HIV (human immunodeficiency virus infection) Renal colic <TAYLOR Rollins - Last Filed: 03/28/22 19:30> Social History Social History: Social History Alcohol intake: never Patient Tobacco Use Status: Never used Tobacco Advance Directives: No <TAYLOR Rollins - Last Filed: 03/28/22 19:30> Physical Exam ED Vital Signs: Vital Signs - 24 hr 03/28/22 19:31 03/29/22 00:18 03/29/22 03:40 Temperature 98.2 F 98.8 F 98.4 F Pulse Rate 83 68 70 Respiratory Rate 16 18 16 Blood Pressure 121/64 109/55 L 101/53 L Pulse Oximetry 98 99 98 Oxygen Delivery Method Room Air Room Air Room Air BMI result Body Mass Index 20.2 <TAYLOR Rollins - Last Filed: 03/28/22 19:30> Vital Signs - 24 hr 03/28/22 19:31 03/29/22 00:18 03/29/22 03:40 Temperature 98.2 F 98.8 F 98.4 F Pulse Rate 83 68 70 Respiratory Rate 16 18 16 Blood Pressure 121/64 109/55 L 101/53 L Pulse Oximetry 98 99 98 Oxygen Delivery Method Room Air Room Air Room Air BMI result Body Mass Index 20.2 <José Manuel Vazquez MD - Last Filed: 03/29/22 07:37> Appearance: Alert. Oriented X3. No acute distress. Eyes: No pallor or icterus ENT: Pharynx normal. Oral Mucosa moist Neck: Normal inspection. Neck supple. CVS: Normal heart rate and rhythm. Pulses normal. Respiratory: No respiratory distress. Equal air entry bilateral, no wheezing/rales/rhonchi Abdomen: Soft, mild tenderness epigastric area no rebound tenderness guarding. Bowel sounds are present, no mass palpable, no CVA tenderness Skin: Skin warm and dry. Normal skin color. Normal skin turgor. Extremities: No lower extremity edema. No calf tenderness Neuro: Oriented X 3. <José Manuel Vazquez MD - Last Filed: 03/29/22 07:37> Course Course Course Narrative: RME-19:30PM 36yoF presenting to the ED with complaints of epigastric abd paij for the past few days worse today after she drank the apple juice at 4pm [employer]. She denies any fevers, nasal congestion, chest pain or shortness of breath, coughing, nausea or vomiting, diarrhea constipation. Last BM was this morning. Plan: Will obtain labs, UA, COVID/RSV/flu swab and abdominal ultrasound. Patient will be sent back to the waiting room to be evaluated in the ED. <TAYLOR Rollins - Last Filed: 03/28/22 19:30> Medical Decision Making Medical Decision Making [facility] Narrative: Patient nonspecific epigastric pain workup negative will start patient on Prilosec likely gastritis as a cause for the pain <José Manuel Vazquez MD - Last Filed: 03/29/22 07:37> Differential Diagnosis Gastritis/peptic ulcer disease/cholelithiasis/UTI <José Manuel Vazquez MD - Last Filed: 03/29/22 07:37> Lab Data [facility] Lab Attestation statement: I reviewed the patient's lab results. <José Manuel Vazquez MD - Last Filed: 03/29/22 07:37> Result Diagrams: 03/28/22 22:09 03/28/22 21:33 <TAYLOR Rollins - Last Filed: 03/28/22 19:30> Labs: Lab Results 03/28/22 03/28/22 03/28/22 Range/Units 21:33 21:33 21:33 WBC (4.8-10.8) X10*3/uL RBC (4.20-5.50) X10*6/uL Hgb (12.0-16.0) g/dl Hct (37.0-47.0) % MCV (80.0-98.0) fL MCH (27.0-33.0) pg MCHC (31.0-35.0) g/dl RDW (11.0-16.0) % Plt Count (160-400) X10*3/uL MPV (9.4-12.3) fL Immature Gran % (Auto) (0.0-0.4) % Neut % (Auto) (45-73) % Lymph % (Auto) (20-40) % Victoria % (Auto) (2-11) % Eos % (Auto) (0-4) % Baso % (Auto) (0-2) % Lymph # (Auto) (1.2-4.9) X10*3/uL Victoria # (Auto) (0.1-1.2) X10*3/uL Eos # (Auto) (0.0-0.4) X10*3/uL Baso # (Auto) (0.0-0.2) X10*3/uL Abs Immat Gran (auto) (0.00-0.03) X10*3/uL Absolute Neuts (auto) (2.0-8.3) x10*3/uL Absolute Nucleated RBC (0.0-0.012) X10*3/uL Nucleated RBC % (auto) (0.0-0.2) /100WBC PT 11.8 (10.0-13.1) SEC INR 1.0 (0.9-1.1) Sodium 140 (135-145) mmol/L Potassium 4.0 (3.3-5.1) mmol/L Chloride 107 (96-108) mmol/L Carbon Dioxide 26 (22-29) mmol/L Anion Gap 11 L (12-20) BUN 11 (9-16) mg/dL Creatinine 0.66 (0.5-1.4) mg/dL Estim Creat Clear Calc 79.6 Estimated GFR > 60 Random Glucose 85 (60-115) mg/dL Calcium 9.2 (8.4-10.2) mg/dL Magnesium 2.1 (1.6-2.6) mg/dL Total Bilirubin 0.5 (0.0-1.0) mg/dL AST 15 (5-31) U/L ALT 11 (0-31) U/L Alkaline Phosphatase 51 (39-117) U/L Total Protein 7.3 (6.5-8.0) g/dL Albumin 4.5 (3.5-5.0) g/dL Lipase 30 (8-78) U/L Beta HCG, Quant mIU/mL Urine Color Urine Appearance Urine pH (5.0-9.0) Ur Specific Butler (1.005-1.025) Urine Protein (Neg-Trace) mg/dL Urine Glucose (UA) (Negative) mg/dL Urine Ketones (Negative) mg/dL Urine Blood (Negative) Urine Nitrite (Negative) Ur Leukocyte Esterase (Negative) Urine RBC (0-2) /HPF Urine WBC (0-5) /HPF Ur Squamous Epith Cells (0-2) /HPF Urine Bacteria (None Seen) Hyaline Casts (0-2) /LPF Influenza Type A (PCR) NEGATIVE (Negative) Influenza Type B (PCR) NEGATIVE (Negative) RSV RNA Qual (PCR) NEGATIVE (Negative) SARS-CoV-2 RNA (RT-PCR) NEGATIVE (Negative) 03/28/22 03/28/22 03/28/22 Range/Units 21:33 21:44 22:09 WBC 8.8 (4.8-10.8) X10*3/uL RBC 3.81 L (4.20-5.50) X10*6/uL Hgb 12.3 (12.0-16.0) g/dl Hct 35.4 L (37.0-47.0) % MCV 92.9 (80.0-98.0) fL MCH 32.3 (27.0-33.0) pg MCHC 34.7 (31.0-35.0) g/dl RDW 12.3 (11.0-16.0) % Plt Count 255 (160-400) X10*3/uL MPV 8.9 L (9.4-12.3) fL Immature Gran % (Auto) 0.2 (0.0-0.4) % Neut % (Auto) 55.7 (45-73) % Lymph % (Auto) 35.9 (20-40) % Victoria % (Auto) 5.9 (2-11) % Eos % (Auto) 1.6 (0-4) % Baso % (Auto) 0.7 (0-2) % Lymph # (Auto) 3.2 (1.2-4.9) X10*3/uL Victoria # (Auto) 0.5 (0.1-1.2) X10*3/uL Eos # (Auto) 0.1 (0.0-0.4) X10*3/uL Baso # (Auto) 0.1 (0.0-0.2) X10*3/uL Abs Immat Gran (auto) 0.02 (0.00-0.03) X10*3/uL Absolute Neuts (auto) 4.9 (2.0-8.3) x10*3/uL Absolute Nucleated RBC 0.000 (0.0-0.012) X10*3/uL Nucleated RBC % (auto) 0.0 (0.0-0.2) /100WBC PT (10.0-13.1) SEC INR (0.9-1.1) Sodium (135-145) mmol/L Potassium (3.3-5.1) mmol/L Chloride (96-108) mmol/L Carbon Dioxide (22-29) mmol/L Anion Gap (12-20) BUN (9-16) mg/dL Creatinine (0.5-1.4) mg/dL Estim Creat Clear Calc Estimated GFR Random Glucose (60-115) mg/dL Calcium (8.4-10.2) mg/dL Magnesium (1.6-2.6) mg/dL Total Bilirubin (0.0-1.0) mg/dL AST (5-31) U/L ALT (0-31) U/L Alkaline Phosphatase (39-117) U/L Total Protein (6.5-8.0) g/dL Albumin (3.5-5.0) g/dL Lipase (8-78) U/L Beta HCG, Quant < 2 mIU/mL Urine Color Yellow Urine Appearance Clear Urine pH 6.5 (5.0-9.0) Ur Specific Butler 1.020 (1.005-1.025) Urine Protein Negative (Neg-Trace) mg/dL Urine Glucose (UA) Negative (Negative) mg/dL Urine Ketones Negative (Negative) mg/dL Urine Blood Negative (Negative) Urine Nitrite Negative (Negative) Ur Leukocyte Esterase Trace H (Negative) Urine RBC 0-2 (0-2) /HPF Urine WBC 0-5 (0-5) /HPF Ur Squamous Epith Cells 0-2 (0-2) /HPF Urine Bacteria None Seen (None Seen) Hyaline Casts 0-2 (0-2) /LPF Influenza Type A (PCR) (Negative) Influenza Type B (PCR) (Negative) RSV RNA Qual (PCR) (Negative) SARS-CoV-2 RNA (RT-PCR) (Negative) <TAYLOR Rollins - Last Filed: 03/28/22 19:30> Lab Results 03/28/22 03/28/22 03/28/22 Range/Units 21:33 21:33 21:33 WBC (4.8-10.8) X10*3/uL RBC (4.20-5.50) X10*6/uL Hgb (12.0-16.0) g/dl Hct (37.0-47.0) % MCV (80.0-98.0) fL MCH (27.0-33.0) pg MCHC (31.0-35.0) g/dl RDW (11.0-16.0) % Plt Count (160-400) X10*3/uL MPV (9.4-12.3) fL Immature Gran % (Auto) (0.0-0.4) % Neut % (Auto) (45-73) % Lymph % (Auto) (20-40) % Victoria % (Auto) (2-11) % Eos % (Auto) (0-4) % Baso % (Auto) (0-2) % Lymph # (Auto) (1.2-4.9) X10*3/uL Victoria # (Auto) (0.1-1.2) X10*3/uL Eos # (Auto) (0.0-0.4) X10*3/uL Baso # (Auto) (0.0-0.2) X10*3/uL Abs Immat Gran (auto) (0.00-0.03) X10*3/uL Absolute Neuts (auto) (2.0-8.3) x10*3/uL Absolute Nucleated RBC (0.0-0.012) X10*3/uL Nucleated RBC % (auto) (0.0-0.2) /100WBC PT 11.8 (10.0-13.1) SEC INR 1.0 (0.9-1.1) Sodium 140 (135-145) mmol/L Potassium 4.0 (3.3-5.1) mmol/L Chloride 107 (96-108) mmol/L Carbon Dioxide 26 (22-29) mmol/L Anion Gap 11 L (12-20) BUN 11 (9-16) mg/dL Creatinine 0.66 (0.5-1.4) mg/dL Estim Creat Clear Calc 79.6 Estimated GFR > 60 Random Glucose 85 (60-115) mg/dL Calcium 9.2 (8.4-10.2) mg/dL Magnesium 2.1 (1.6-2.6) mg/dL Total Bilirubin 0.5 (0.0-1.0) mg/dL AST 15 (5-31) U/L ALT 11 (0-31) U/L Alkaline Phosphatase 51 (39-117) U/L Total Protein 7.3 (6.5-8.0) g/dL Albumin 4.5 (3.5-5.0) g/dL Lipase 30 (8-78) U/L Beta HCG, Quant mIU/mL Urine Color Urine Appearance Urine pH (5.0-9.0) Ur Specific Butler (1.005-1.025) Urine Protein (Neg-Trace) mg/dL Urine Glucose (UA) (Negative) mg/dL Urine Ketones (Negative) mg/dL Urine Blood (Negative) Urine Nitrite (Negative) Ur Leukocyte Esterase (Negative) Urine RBC (0-2) /HPF Urine WBC (0-5) /HPF Ur Squamous Epith Cells (0-2) /HPF Urine Bacteria (None Seen) Hyaline Casts (0-2) /LPF Influenza Type A (PCR) NEGATIVE (Negative) Influenza Type B (PCR) NEGATIVE (Negative) RSV RNA Qual (PCR) NEGATIVE (Negative) SARS-CoV-2 RNA (RT-PCR) NEGATIVE (Negative) 03/28/22 03/28/22 03/28/22 Range/Units 21:33 21:44 22:09 WBC 8.8 (4.8-10.8) X10*3/uL RBC 3.81 L (4.20-5.50) X10*6/uL Hgb 12.3 (12.0-16.0) g/dl Hct 35.4 L (37.0-47.0) % MCV 92.9 (80.0-98.0) fL MCH 32.3 (27.0-33.0) pg MCHC 34.7 (31.0-35.0) g/dl RDW 12.3 (11.0-16.0) % Plt Count 255 (160-400) X10*3/uL MPV 8.9 L (9.4-12.3) fL Immature Gran % (Auto) 0.2 (0.0-0.4) % Neut % (Auto) 55.7 (45-73) % Lymph % (Auto) 35.9 (20-40) % Victoria % (Auto) 5.9 (2-11) % Eos % (Auto) 1.6 (0-4) % Baso % (Auto) 0.7 (0-2) % Lymph # (Auto) 3.2 (1.2-4.9) X10*3/uL Victoria # (Auto) 0.5 (0.1-1.2) X10*3/uL Eos # (Auto) 0.1 (0.0-0.4) X10*3/uL Baso # (Auto) 0.1 (0.0-0.2) X10*3/uL Abs Immat Gran (auto) 0.02 (0.00-0.03) X10*3/uL Absolute Neuts (auto) 4.9 (2.0-8.3) x10*3/uL Absolute Nucleated RBC 0.000 (0.0-0.012) X10*3/uL Nucleated RBC % (auto) 0.0 (0.0-0.2) /100WBC PT (10.0-13.1) SEC INR (0.9-1.1) Sodium (135-145) mmol/L Potassium (3.3-5.1) mmol/L Chloride (96-108) mmol/L Carbon Dioxide (22-29) mmol/L Anion Gap (12-20) BUN (9-16) mg/dL Creatinine (0.5-1.4) mg/dL Estim Creat Clear Calc Estimated GFR Random Glucose (60-115) mg/dL Calcium (8.4-10.2) mg/dL Magnesium (1.6-2.6) mg/dL Total Bilirubin (0.0-1.0) mg/dL AST (5-31) U/L ALT (0-31) U/L Alkaline Phosphatase (39-117) U/L Total Protein (6.5-8.0) g/dL Albumin (3.5-5.0) g/dL Lipase (8-78) U/L Beta HCG, Quant < 2 mIU/mL Urine Color Yellow Urine Appearance Clear Urine pH 6.5 (5.0-9.0) Ur Specific Butler 1.020 (1.005-1.025) Urine Protein Negative (Neg-Trace) mg/dL Urine Glucose (UA) Negative (Negative) mg/dL Urine Ketones Negative (Negative) mg/dL Urine Blood Negative (Negative) Urine Nitrite Negative (Negative) Ur Leukocyte Esterase Trace H (Negative) Urine RBC 0-2 (0-2) /HPF Urine WBC 0-5 (0-5) /HPF Ur Squamous Epith Cells 0-2 (0-2) /HPF Urine Bacteria None Seen (None Seen) Hyaline Casts 0-2 (0-2) /LPF Influenza Type A (PCR) (Negative) Influenza Type B (PCR) (Negative) RSV RNA Qual (PCR) (Negative) SARS-CoV-2 RNA (RT-PCR) (Negative) <José Manuel Vazquez MD - Last Filed: 03/29/22 07:37> Medications Administered Discontinued Medications Generic Name Dose Route Start Last Admin Trade Name Freq PRN Reason Stop Dose Admin Al Hydroxide/Mg Hydroxide 30 ml 03/29/22 03:44 03/29/22 03:52 Magnesium Hydrox/Alum Hydrox 30 Ml Oral.Susp PO 03/29/22 03:45 30 ml ONCE ONE Administration Omeprazole 40 mg 03/29/22 03:46 03/29/22 03:52 Omeprazole 40 Mg Capsule.Dr PO 03/29/22 03:47 40 mg ONCE ONE Administration <TAYLOR Rollins - Last Filed: 03/28/22 19:30> Medications Administered Discontinued Medications Generic Name Dose Route Start Last Admin Trade Name Freq PRN Reason Stop Dose Admin Al Hydroxide/Mg Hydroxide 30 ml 03/29/22 03:44 03/29/22 03:52 Magnesium Hydrox/Alum Hydrox 30 Ml Oral.Susp PO 03/29/22 03:45 30 ml ONCE ONE Administration Omeprazole 40 mg 03/29/22 03:46 03/29/22 03:52 Omeprazole 40 Mg Capsule.Dr PO 03/29/22 03:47 40 mg ONCE ONE Administration <José Manuel Vazquez MD - Last Filed: 03/29/22 07:37> Discharge Plan Discharge Clinical Impression: Gastritis <TAYLOR Rollins - Last Filed: 03/28/22 19:30> Patient Disposition: Home, Self-Care <TAYLOR Rollins - Last Filed: 03/28/22 19:30> Instructions: Gastritis (ED) <TAYLOR Rollins - Last Filed: 03/28/22 19:30> Additional Instructions: Do not take ibuprofen/naproxen Take sucralfate and Prilosec as prescribed Follow with PCP if not better <TAYLOR Rollins - Last Filed: 03/28/22 19:30> Prescriptions: New omeprazole 40 mg capsule,delayed release(DR/EC) 40 mg PO DAILY Qty: 30 0RF sucralfate 1 gram tablet 1 g PO TID Qty: 90 0RF No Action ibuprofen 400 mg tablet 400 mg PO Q8H PRN (Reason: pain) Qty: 20 0RF cyclobenzaprine 10 mg tablet 10 mg PO TID PRN (Reason: muscle spasm) Qty: 14 0RF meclizine 25 mg tablet 25 mg PO DAILY PRN (Reason: dizziness) Qty: 20 0RF ondansetron 4 mg tablet,disintegrating 4 mg PO DAILY PRN (Reason: nausea and vomiting) Qty: 10 0RF naproxen 500 mg tablet 500 mg PO BID PRN (Reason: pain) 7 Days Qty: 14 0RF prednisone 20 mg tablet 40 mg PO DAILY 5 Days Qty: 10 0RF cyclobenzaprine 10 mg tablet 10 mg PO BEDTIME PRN (Reason: muscle spasm) 7 Days Qty: 7 0RF <TAYLOR Rollins - Last Filed: 03/28/22 19:30> Interventions: ED Discharge Assessment Last Done: 03/29/22 03:56 <TAYLOR Rollins - Last Filed: 03/28/22 19:30> Discharge Date/Time: 03/29/22 03:56 <TAYLOR Rollins - Last Filed: 03/28/22 19:30>
[2022-03-28 19:31] VITALS: BP 121/64; PULSE 83; RESP 16; TEMP 36.8; O2SAT 98; BMI 20.2
[2022-03-28 21:46] LABS: Prothrombin Time 11.8 SEC (10.0-13.1)
[2022-03-28 21:52] LABS: Appearance Urine Clear; Color Urine Yellow; Glucose Urine UA Negative (Negative); Leukocyte Esterase Urine Trace (Negative); Nitrite Urine Negative (Negative); PH 6.5 (5.0-9.0); UMIC TRIGGER UACC YES; Urine Blood Negative (Negative); Urine Ketones Negative (Negative); Urine Protein Negative (Neg-Trace)
[2022-03-28 21:54] LABS: Bacteria Urine None Seen (None Seen); Hyaline Casts Urine 0-2 /LPF (0-2); RBC Urine 0-2 /HPF (0-2); Squamous Epithelial Cell Urine 0-2 /HPF (0-2); WBC Urine 0-5 /HPF (0-5)
[2022-03-28 21:56] LABS: Alanine Aminotransferase 11 U/L (0-31); Albumin Level 4.5 g/dL (3.5-5.0); Alkaline Phosphatase 51 U/L (39-117); Anion Gap 11 (12-20); Aspartate Amino Transferase 15 U/L (5-31); Bilirubin Total 0.5 mg/dL (0.0-1.0); Blood Urea Nitrogen 11 mg/dL (9-16); Calcium 9.2 mg/dL (8.4-10.2); Carbon Dioxide 26 mmol/L (22-29); Chloride 107 mmol/L (96-108); Creatinine Clr Calc Pharmacy 79.6; Estimated Glomerular Filt Rate > 60; Glucose Random 85 mg/dL (60-115); Lipase 30 U/L (8-78); Magnesium 2.1 mg/dL (1.6-2.6); Sodium 140 mmol/L (135-145); Total Protein 7.3 g/dL (6.5-8.0)
[2022-03-28 22:12] LABS: MANUAL DIFF FLAG NO
[2022-03-28 22:12] LABS: HCG Quantitative < 2 mIU/mL
[2022-03-28 22:15] LABS: Basophils Absolute Auto 0.1 X10*3/uL (0.0-0.2); Basophils Percent Auto 0.7 % (0-2); Eosinophils Absolute Auto 0.1 X10*3/uL (0.0-0.4); Eosinophils Percent Auto 1.6 % (0-4); Hematocrit 35.4 % (37.0-47.0); Hemoglobin 12.3 g/dl (12.0-16.0); Imm Gran Abs Auto 0.02 X10*3/uL (0.00-0.03); Imm Gran Pct Auto 0.2 % (0.0-0.4); Lymphocytes Absolute Auto 3.2 X10*3/uL (1.2-4.9); Lymphocytes Percent Auto 35.9 % (20-40); Mean Corpuscular HGB Conc 34.7 g/dl (31.0-35.0); Mean Corpuscular Hemoglobin 32.3 pg (27.0-33.0); Mean Corpuscular Volume 92.9 fL (80.0-98.0); Mean Platelet Volume 8.9 fL (9.4-12.3); Monocytes Absolute Auto 0.5 X10*3/uL (0.1-1.2); Monocytes Percent Auto 5.9 % (2-11); Neutrophils Absolute Auto 4.9 x10*3/uL (2.0-8.3); Neutrophils Percent Auto 55.7 % (45-73); Platelet Count 255 X10*3/uL (160-400); Red Blood Count 3.81 X10*6/uL (4.20-5.50); Red Cell Distribution Width 12.3 % (11.0-16.0); White Blood Count 8.8 X10*3/uL (4.8-10.8)
[2022-03-28 22:29] LABS: Influenza A PCR NEGATIVE (Negative); Influenza B PCR NEGATIVE (Negative); Resp Syncy Virus RNA Qual PCR NEGATIVE (Negative); SARS COV2 PCR INHOUSE NEGATIVE (Negative)
[2022-03-29 00:18] VITALS: BP 109/55; PULSE 68; RESP 18; TEMP 37.1; O2SAT 99
[2022-03-29 03:40] VITALS: BP 101/53; PULSE 70; RESP 16; TEMP 36.9; O2SAT 98
--- NOTE | 2022-03-29 03:40 | MHC.EDTECH ---
this pct assumed care of pt at 0300 ,vitals sign taken .
[2022-03-29] MEDS: Omeprazole 40 MG CAPSULE.DR PO (03:52)
[2022-03-29] MEDS: Magnesium Hydrox/Alum Hydrox 30 ML ORAL.SUSP PO (03:52)
== END 2022-03-29 03:56 | disposition home or self-care (01) ==
PROVIDERS: Physician Assistant Medical; Emergency Provider Internal Medicine; PCP Registered Nurse
DX: K29.70 Gastritis, unspecified, without bleeding (principal); R10.13 Epigastric pain; Z20.822 Contact with and (suspected) exposure to COVID-19; Z20.828 Contact with and (suspected) exposure to other viral communicable diseases; B20 Human immunodeficiency virus [HIV] disease; Z79.899 Other long term (current) drug therapy
CPT/HCPCS: 0241U; 36415; 76700; 80053; 81001; 83690; 83735; 84702; 85025; 85610; 99283; 99284

== ENCOUNTER 2022-08-25 21:21 | Emergency (ER) | payer MEDICAID, SELFPAY ==
--- NOTE | ~2022-08-25 | XR_ITS ---
EXAMINATION: XR SHOULDER, LEFT CLINICAL INFORMATION: Pain COMPARISON: None available. TECHNIQUE: AP external rotation, Grashey, scapular Y, and axillary views of the left shoulder. FINDINGS: There is a 6 x 4 mm bony opacity seen just inferior to the glenohumeral joint that most likely represents a intra-articular osseous body The bones and soft tissues are otherwise unremarkable. No fracture. Glenohumeral and acromioclavicular alignment is anatomic with normal joint space. No abnormal soft tissue calcifications. XR/XR shoulder LT min 2V IMPRESSION: 6 x 4 mm intra-articular osseous body as described above.
[2022-08-25 23:19] VITALS: BP 96/59; PULSE 75; RESP 16; TEMP 36.6; O2SAT 100; BMI 20.2
[2022-08-26 04:00] VITALS: BP 113/69; PULSE 66; RESP 16; TEMP 36.7; O2SAT 98
[2022-08-26 06:47] VITALS: BP 102/58; PULSE 59; RESP 18; TEMP 36.8; O2SAT 100
--- NOTE | 2022-08-26 07:42 | ED_ITS ---
HPI - Extremity Problem General Chief complaint: Extremity Injury, Upper Stated complaint: Left shoulder pain for 5 Days Time Seen by Provider: 08/26/22 07:28 Source: patient Mode of arrival: ambulatory Limitations: no limitations History of Present Illness HPI Narrative: 37 year old female patient presents today with c/o shoulder pain for five days. She states she was working out with dumbbells and afterwards noticed some discomfort with ADLs (reaching up and back, holding coffee mug). Pain is mostly located on the posterior aspect of the shoulder and along the AC joint. She states resting it makes it feel better. Has not tried anything to remedy her symptoms. Has been using her right arm more due to the pain. Denies chest pain, numbness/tingling, and weakness. MD Complaint: extremity pain Onset (ago): day(s) Pain Consistency: intermittent Location: left Severity scale (1-10): 1 Radiation: none Relieving factors: rest Exacerbating factors: range of motion and weight bearing Associated symptoms: denies other symptoms Related Data Previous Rx's Medication Instructions Recorded cyclobenzaprine 10 mg tablet 10 mg PO TID PRN muscle spasm #14 09/04/20 tabs ibuprofen 400 mg tablet 400 mg PO Q8H PRN pain #20 tabs 09/04/20 meclizine 25 mg tablet 25 mg PO DAILY PRN dizziness #20 12/31/20 tabs ondansetron 4 mg disintegrating 4 mg PO DAILY PRN nausea and 12/31/20 tablet vomiting #10 tabs cyclobenzaprine 10 mg tablet 10 mg PO BEDTIME PRN muscle spasm 12/28/21 7 days #7 tabs naproxen 500 mg tablet 500 mg PO BID PRN pain 7 days #14 12/28/21 tabs prednisone 20 mg tablet 40 mg PO DAILY 5 days #10 tabs 12/28/21 omeprazole 40 mg capsule,delayed 40 mg PO DAILY #30 caps 03/29/22 release sucralfate 1 gram tablet 1 g PO TID #90 tabs 03/29/22 ibuprofen 600 mg tablet 600 mg PO Q8H PRN pain #14 tabs 08/26/22 Allergies Allergy/AdvReac Type Severity Reaction Status Date / Time No Known Allergies Allergy Verified 08/25/22 23:19 Review of Systems Review of Systems: Yes all other systems are reviewed and are negative Musculoskeletal: Musculoskeletal: Reports as per HPI [facility] Past Medical History Medical History HIV (human immunodeficiency virus infection) Renal colic Social History Social History Alcohol intake: never Patient Tobacco Use Status: Never used Tobacco Advance Directives: No Advance Directives Information Provided: Yes Physical Exam Vital Signs: Vital Signs: Last Vital Signs Temp 97.6 F 08/26/22 07:46 Pulse 62 08/26/22 07:46 Resp 14 08/26/22 07:46 BP 99/55 L 08/26/22 07:46 Pulse Ox 100 08/26/22 07:46 O2 Del Method Room Air 08/26/22 07:46 BMI result Body Mass Index 20.2 Appearance: Alert. Oriented X3. No acute distress. Head: normocephalic, atraumatic. Neck: Normal inspection. Neck supple. CVS: Normal heart rate and rhythm. Pulses normal. Respiratory: No respiratory distress. Breath sounds normal. Skin: Skin warm and dry. Normal skin color Extremities: No lower extremity edema. No joint swelling. full passive ROM of the left shoulder. LUE +empty can, - darby, - lift off, - horowitz pull/ press, mild pain with flexion and abduction. Neuro/psych: Oriented X 3. No motor deficit. No sensory deficit. CN II-XII intact. Normal speech and cognition. Extrem: General: Yes normal to inspection Left upper extremity: normal to inspection, no joint enlargement and shoulder/upper arm Medications Administered Discontinued Medications Generic Name Dose Route Start Last Admin Trade Name John Paul PRN Reason Stop Dose Admin Ibuprofen 600 mg 08/26/22 07:40 08/26/22 08:00 Ibuprofen 600 Mg Tablet PO 08/26/22 07:41 600 mg ONCE ONE Administration Medical Decision Making Medical Decision Making MDM Narrative: 37 year old female patient presents today with c/o shoulder pain for five days. Xray done and showing no acute fx or findings. likely shoulder strain, she has full rom. Ibuprofen administered. Patient stable for discharge. Information for outpatient follow up with orthopedics to be provided in discharge summary. Patient instructed to follow up if pain persists. Differential Diagnosis Differential Diagnoses: The differential diagnosis associated with the presentation includes humerus fracture, rotator cuff tear, SLAP tear, AC joint impingement Independent Interpretation I performed an independent interpretation of an: Plain X-Ray Interpretation: reviewed - bony lesion seen, agree w/ radiology Radiology Impression Discussion of test interpretation with radiology: I have reviewed the radiologist's reading. Radiologist Impression: Impression: There is a 6 x 4 mm bony opacity seen just inferior to the glenohumeral joint that most likely represents a intra-articular osseous body The bones and soft tissues are otherwise unremarkable. No fracture. Glenohumeral and acromioclavicular alignment is anatomic with normal joint space. No abnormal soft tissue calcifications.? External Record Review External record reviewed: Outpatient record and Prior outpatient labs Prescription Management I considered prescription management with: Pain Medication Critical Care Time Critical Care Time Critical Care Time: No Discharge Plan Discharge Clinical Impression: Left shoulder strain Patient Disposition: Home, Self-Care Instructions: Rotator Cuff Injury (ED) Additional Instructions: Your x-ray did not show any acute abnormalities Your pain is most likely due to muscle strain, possible injury to the rotator cuff. Limit lifting and excessive use. Use ice several times per day for 20 minutes at a time for the next 48 hours and then change to heat. Take medication as prescribed to help with pain and discomfort. Follow up Orthopedics if you have ongoing symptoms. Prescriptions: New ibuprofen 600 mg tablet 600 mg PO Q8H PRN (Reason: pain) Qty: 14 0RF No Action ibuprofen 400 mg tablet 400 mg PO Q8H PRN (Reason: pain) Qty: 20 0RF cyclobenzaprine 10 mg tablet 10 mg PO TID PRN (Reason: muscle spasm) Qty: 14 0RF meclizine 25 mg tablet 25 mg PO DAILY PRN (Reason: dizziness) Qty: 20 0RF ondansetron 4 mg tablet,disintegrating 4 mg PO DAILY PRN (Reason: nausea and vomiting) Qty: 10 0RF omeprazole 40 mg capsule,delayed release(DR/EC) 40 mg PO DAILY Qty: 30 0RF sucralfate 1 gram tablet 1 g PO TID Qty: 90 0RF naproxen 500 mg tablet 500 mg PO BID PRN (Reason: pain) 7 Days Qty: 14 0RF prednisone 20 mg tablet 40 mg PO DAILY 5 Days Qty: 10 0RF cyclobenzaprine 10 mg tablet 10 mg PO BEDTIME PRN (Reason: muscle spasm) 7 Days Qty: 7 0RF Referrals: [facility] [Provider Group] (left shoulder pain) Interventions: ED Discharge Assessment Last Done: 08/26/22 08:04 Discharge Date/Time: 08/26/22 08:05
[2022-08-26 07:46] VITALS: BP 99/55; PULSE 62; RESP 14; TEMP 36.4; O2SAT 100
[2022-08-26] MEDS: Ibuprofen 600 MG TABLET PO (08:00)
== END 2022-08-26 08:05 | disposition home or self-care (01) ==
PROVIDERS: Emergency Provider Emergency Medicine
DX: M25.512 Pain in left shoulder (principal)
CPT/HCPCS: 73030; 99283

== ENCOUNTER 2024-11-13 17:45 | Emergency (ER) | payer MEDICAID, SELFPAY ==
--- NOTE | ~2024-11-13 | XR_ITS ---
CLINICAL HISTORY: hand clumsiness, neck pain 3 views cervical spine Comparison: None provided Findings: Straightening of the cervical lordosis. Osteopenia. No acute fracture. Focal spondylosis at C5-C6 with degenerative disc disease and osteophytic spurring. No prevertebral soft tissue swelling. IMPRESSION: Chronic changes without acute findings. This document has been electronically signed by: Teo Cisneros MD on 11/13/2024 18:56:36
--- NOTE | ~2024-11-13 | XR_ITS ---
CLINICAL HISTORY: lt wrist pain 4 view left wrist Comparison: None provided Findings: Well corticated round ossific density radial to the distal carpal row, may reflect a chronic injury, accessory ossicle however is nonspecific. No acute fractures identified. No significant loss of joint space, osteophyte, or erosions. No radiopaque foreign body. Mildly diffuse soft tissue swelling. IMPRESSION: 1. No acute fracture. This document has been electronically signed by: Teo Cisneros MD on 11/13/2024 18:21:05
--- NOTE | ~2024-11-13 | XR_ITS ---
CLINICAL HISTORY: left hand pain 3 view left hand Comparison: None provided Findings: No fractures or dislocations. No significant arthritic change. No erosions. No radiopaque foreign body. IMPRESSION: 1. No acute findings This document has been electronically signed by: Teo Cisneros MD on 11/13/2024 18:21:17
--- NOTE | 2024-11-13 18:12 | ED.GENADULT ---
HPI - General Adult General Chief complaint: Extremity Injury, Upper Stated complaint: left hand pain Time Seen by Provider: 11/13/24 19:59 Source: patient Mode of arrival: ambulatory Limitations: no limitations History of Present Illness ED Provider: TRISTAN BAILEY PA-C HPI narrative: 39 yo right hand dominant F with PMH significant for HIV, renal colic, and cervical radiculopathy presents to the ED with right thumb pain x1 month. Denies injury or trauma to the thumb. Pain has been worsening over the past several days. Aggravated by abduction and opposition. Reports thumb feels weak with brushing hair or holding coffee cup. Denies overlying redness or swelling. There is mild pain at rest. Denies numbness/tingling of the right hand or radiation of sx up the arm. She has not tried any meds at home. Denies repetitive motions such as typing or playing video games. No prior h/o surgeries to the RUE. Reports she was told in the past she has arthritis in my neck . She has a follow up appointment with her PCP in 10 days for eval of right thumb pain. Related Data Previous Rx's ?Medication ?Instructions ?Recorded cyclobenzaprine 10 mg tablet 10 mg PO TID PRN muscle spasm #14 09/04/20 tabs ibuprofen 400 mg tablet 400 mg PO Q8H PRN pain #20 tabs 09/04/20 meclizine 25 mg tablet 25 mg PO DAILY PRN dizziness #20 12/31/20 tabs ondansetron 4 mg disintegrating 4 mg PO DAILY PRN nausea and 12/31/20 tablet vomiting #10 tabs cyclobenzaprine 10 mg tablet 10 mg PO BEDTIME PRN muscle spasm 12/28/21 7 days #7 tabs naproxen 500 mg tablet 500 mg PO BID PRN pain 7 days #14 12/28/21 tabs prednisone 20 mg tablet 40 mg (2 x 20 mg) PO DAILY 5 days 12/28/21 #10 tabs omeprazole 40 mg capsule,delayed 40 mg PO DAILY #30 caps 03/29/22 release sucralfate 1 gram tablet 1 g PO TID #90 tabs 03/29/22 ibuprofen 600 mg tablet 600 mg PO Q8H PRN pain #14 tabs 08/26/22 naproxen 500 mg tablet 500 mg PO BID PRN pain (scale 11/13/24 score 4-6) #20 tabs Allergies Allergy/AdvReac Type Severity Reaction Status Date / Time No Known Allergies Allergy Verified 11/13/24 18:15 Review of Systems Review of Systems: Yes all other systems are reviewed and are negative [facility] Past Medical History Attestation statement: The following information was validated with the patient. Source: old records reviewed and nursing notes reviewed Medical History Renal colic HIV (human immunodeficiency virus infection) Social History Social History Alcohol intake: never Patient Tobacco Use Status: Never used Tobacco Advance Directives: Yes Advance Directives on File: Yes Advance Directives Date on File: 10/06/21 Do you have a plan to hurt others: No Plan Physical Exam ED Vital Signs: Vital Signs - 24 hr 11/13/24 18:13 Temperature 97.8 F Pulse Rate 63 Respiratory Rate 16 Blood Pressure 113/53 L Pulse Oximetry 99 Oxygen Delivery Method Room Air BMI result Body Mass Index 20.2 vital signs WNL General: Well appearing, in no acute distress. Skin: Warm, dry, intact. No rashes or lesions. Head: Normocephalic, atraumatic. EENT: Hearing is intact b/l. Conjunctiva clear. Sclera is anicteric. Neck: Supple without LAD. FROM. Cardiac: Chest wall symmetric. RRR. Lungs: Normal respiratory effort without accessory muscle use. Ext: +no overlying erythema or edema. No deformity. mild pain with opposition and abduction of the right thumb. mild ttp at the first metacarpal. no palpable deformity. no snuffbox tenderness. strength 5/5. capillary refill <2 sec. pulses 2+ and sensation intact to light tough. FROM to the bilateral hands. negative tinnel/phalen. Neuro: AOx3. Normal speech. Sensation intact to light touch. NV intact distally. Ambulating with steady gait. Psych: Appropriate mood and affect. Responds appropriately to questions. Course Course Course Narrative: 39 year old female presents with pain of the right hand that came on suddenly one week ago. There was not trauma or injury to the hand. Pain level 5 or 6 out of 10 in the right hand. Pain is mainly along the thumb and is worse when pressing on it. She often needs to put objects down such as her hair brush due to pain. She has never had pain like this and has not been taking anything for the pain. She is right hand dominant. She does not work and denies any hobbies requiring overuse of her hands. Denies any numbness or tingling. Reevaluation(s) Reevaluation #1: Imaging negative. Concern for tendonitis. will treat with anti inflammatories. she has f/u with PCP in 10 days. Patient has remained stable throughout ED visit today. Discussed worrisome signs and symptoms and when to return to the ED. All questions answered at this time. Patient is agreeable with disposition and stable for discharge. Medications Administered Discontinued Medications Generic Name Dose Route Start Last Admin Trade Name Freq PRN Reason Stop Dose Admin Naproxen 500 mg 11/13/24 21:07 11/13/24 21:26 Naproxen 500 Mg Tablet PO 11/13/24 21:08 500 mg ONCE ONE Administration Medical Decision Making Medical Decision Making MDM Narrative: 39 yo right hand dominant F with PMH significant for HIV, renal colic, and cervical radiculopathy presents to the ED with right thumb pain x1 month. vital signs stable, afebrile. she is well appearing and in NAD. on exam, no overlying erythema or edema. No deformity. mild pain with opposition and abduction of the right thumb. mild ttp at the first metacarpal. no palpable deformity. no snuffbox tenderness. strength 5/5. capillary refill <2 sec. pulses 2+ and sensation intact to light tough. FROM to the bilateral hands. negative tinnel/phalen. Differetial diagnosis includes arthritis, tendonitis, de Quervain, carpal tunnel, fracture, MSK sprain/strain Unlikely gout, pseudogout Plan for imaging, pain control and re-evaluation. Differential Diagnosis Differential Diagnoses: The differential diagnosis associated with the presentation includes As above Admission/Observation Not indicated Independent Interpretation I performed an independent interpretation of an: Plain X-Ray Interpretation: X-ray right hand/wrist without fracture X-ray cervical spine without fracture Radiology Impression Discussion of test interpretation with radiology: I have reviewed the radiologist's reading. Radiologist Impression: Procedure(s): XR cervical spine 2V Accession Number(s): [id number] cc: Pamella Henderson; Physician,Unknown ~ Reason for Exam: hand clumsiness, neck pain CLINICAL HISTORY: hand clumsiness, neck pain 3 views cervical spine Comparison: None provided Findings: Straightening of the cervical lordosis. Osteopenia. No acute fracture. Focal spondylosis at C5-C6 with degenerative disc disease and osteophytic spurring. No prevertebral soft tissue swelling. IMPRESSION: Chronic changes without acute findings. This document has been electronically signed by: Teo Cisneros MD on 11/13/2024 18:56:36 Procedure(s): XR wrist RT min 3V Accession Number(s): [id number] cc: Pamella Henderson; Physician,Unknown ~ Reason for Exam: lt wrist pain CLINICAL HISTORY: lt wrist pain 4 view left wrist Comparison: None provided Findings: Well corticated round ossific density radial to the distal carpal row, may reflect a chronic injury, accessory ossicle however is nonspecific. No acute fractures identified. No significant loss of joint space, osteophyte, or erosions. No radiopaque foreign body. Mildly diffuse soft tissue swelling. IMPRESSION: 1. No acute fracture. This document has been electronically signed by: Teo Cisneros MD on 11/13/2024 18:21:05 Procedure(s): XR hand RT min 3V Accession Number(s): [id number] cc: Pamella Henderson; Physician,Unknown ~ Reason for Exam: left hand pain CLINICAL HISTORY: left hand pain 3 view left hand Comparison: None provided Findings: No fractures or dislocations. No significant arthritic change. No erosions. No radiopaque foreign body. IMPRESSION: 1. No acute findings This document has been electronically signed by: Teo Cisneros MD on 11/13/2024 18:21:17 External Record Review External record reviewed: Inpatient record Prescription Management I considered prescription management with: Pain Medication Social Determinants Patient?s care significantly limited by Social Determinants of Health including: Other Social Determinant of Health Critical Care Time Critical Care Time Critical Care Time: No Discharge Plan Discharge Clinical Impression: Tendonitis Patient Disposition: Home, Self-Care Instructions: Tendinitis (ED) Additional Instructions: You were evaluated in the ED today for right thumb pain. Your xrays are reassuring. I suspect you have tendonitis. I recommend anti-inflammatory such as naproxen. Do not take this with other NSAIDs as this can cause increased risk of GI bleeding. Keep your follow up appointment with your PCP on the . Return with any new or worsening symptoms. In the case of an emergency call 911. Prescriptions: New naproxen 500 mg tablet 500 mg PO BID PRN (Reason: pain (scale score 4-6)) Qty: 20 0RF No Action ibuprofen 400 mg tablet 400 mg PO Q8H PRN (Reason: pain) Qty: 20 0RF cyclobenzaprine 10 mg tablet 10 mg PO TID PRN (Reason: muscle spasm) Qty: 14 0RF meclizine 25 mg tablet 25 mg PO DAILY PRN (Reason: dizziness) Qty: 20 0RF ondansetron 4 mg tablet,disintegrating 4 mg PO DAILY PRN (Reason: nausea and vomiting) Qty: 10 0RF omeprazole 40 mg capsule,delayed release(DR/EC) 40 mg PO DAILY Qty: 30 0RF sucralfate 1 gram tablet 1 g PO TID Qty: 90 0RF naproxen 500 mg tablet 500 mg PO BID PRN (Reason: pain) 7 Days Qty: 14 0RF prednisone 20 mg tablet 40 mg PO DAILY 5 Days Qty: 10 0RF cyclobenzaprine 10 mg tablet 10 mg PO BEDTIME PRN (Reason: muscle spasm) 7 Days Qty: 7 0RF ibuprofen 600 mg tablet 600 mg PO Q8H PRN (Reason: pain) Qty: 14 0RF Referrals: Physician,Unknown J [Primary Care Provider, Medical] Print Language: Malawian
[2024-11-13 18:13] VITALS: BP 113/53; PULSE 63; RESP 16; TEMP 36.6; O2SAT 99; BMI 20.2
--- OUTSIDE RECORDS SUMMARY | 2024-11-13 19:51 | XMS_ITS | Encounter Summary ---
Author Organization [facility] Address [address] [place] [id number] Phone Care Team Providers Care Combat Systems Engineer Name Role Phone Yvan Velarde Primary Care Provider [phone] Encounter Details Date Type Department Care Team (Late st Contact Info) Description 09/25/2016 Conversion Encounter [facility] [address] [place] [address] Social History Tobacco Use Types Packs/Day Years Used Date Smoking Tobacco: Never Assessed Comments Unknown Sex and Gender Information Value Date Recorded Sex Assigned at Not on file Legal Sex Female 4:16 PM EDT Gender Identity Not on file Sexual Orientation Not on file documented as of this encounter Plan of Treatment Not on file documented as of this encounter Visit Diagnoses Not on filedocumented in this encounter Care Teams Combat Systems Engineer Relationship Specialty Start Date End Date Yvan Velarde [address] [place] [address] PCP - General 09/19/16 documented as of this encounter
--- OUTSIDE RECORDS SUMMARY | 2024-11-13 19:51 | XMS_ITS | Data Portability ---
Author Organization [facility], Main Office Address [address] [place] [address] Care Team Providers Care Cosmetic Sales Assistant Name Role Phone YVES MIESHA Pewter Caster JAREN TERAN Primary Care Provider GISELLE KANG Infectious Disease [phone] LANIE LANDRY Publishing Editor LEAH DURAND First Aid Nurse [phone] ANGELICA JOHNSON Breast Surgeon [facility] Urologist PAT SCHAEFFER First Officer [phone] ZAY RM Colorectal Surgeon KYLE VALDOVINOS Primary Care Provider Unavailabl e Assessment Encounter Date Assessment Date Assessment LastModified by Organization Details LastModified Time 03/23/2023 03/23/2023 This service was provided using telemedicine. Patient consented to video & audio visit Patient was located in the [facility]. Provider was located in the office. No other persons participated in the telemedicine visit except for the patient unless otherwise indicated here. Total time of visit was 20 minutes. Reviewed concerns about nasal congestion, consistent with URI symptoms related to viral syndrome. Discussed symptomatic management. Advised to call back with symptoms persisting >2wks or new concerns with dyspnea. [email or web address] Not available 03/23/2023 14:25:08 Plan of Treatment Reminders Order Date Submit Date Provider Last Modified By Organization Details Last Modified Time Details Appointments PE EST 2024 01:00P M TAYLOR NARAYANAN Not available Not available Not available Lab respir atory pathog ens DNA + RNA panel, SHARA+pr obe, nasoph arynx 2024 HIRO [facility] (Centralized Electronic Ordering - All Locations), Patient Can Go To The Location Of Their Choice, 06/20/2024 09:58:19 rapid strep group A, throat 2024 [email or web address] s Not available 06/08/2024 17:00:02 rapid SARS CoV 2 Ag, QL IA, respir atory specim en 2023 HIRO In-Office Order, Internal Use Only DO Not Attach Compendium DO Not Attach Compendium, Do Not Delete/merge, [id number] 12/16/2023 11:42:56 strep group A, DNA, swab 2023 HIRO In-Office Order, Internal Use Only DO Not Attach Compendium DO Not Attach Compendium, Do Not Delete/merge, [id number] 12/16/2023 09:48:52 HbA1c (hemog lobin A1c), blood 2023 HIRO [facility] (Centralized Electronic Ordering - All Locations), Patient Can Go To The Location Of Their Choice, 12/05/2023 06:08:30 CBC w/ auto diff 2023 HIRO [facility] (Centralized Electronic Ordering - All Locations), Patient Can Go To The Location Of Their Choice, 12/05/2023 06:08:27 iron + total iron-b inding capaci ty (TIBC) , serum 2023 HIRO [facility] (Centralized Electronic Ordering - All Locations), Patient Can Go To The Location Of Their Choice, 12/05/2023 06:08:29 ferrit in, serum or plasma 2023 HIRO [facility] (Centralized Electronic Ordering - All Locations), Patient Can Go To The Location Of Their Choice, 12/05/2023 06:08:33 lipid panel, serum 2023 HIRO [facility], [address], [place], [address], 12/05/2023 06:08:28 vitami n B12, serum 2023 [facility]), Patient Can Go To The Location Of Their Choice, [id number] 12/05/2023 06:08:32 folate , serum 2023 024 [facility] (Centralized Electronic Ordering - All Locations), Patient Can Go To The Location Of Their Choice, [id number] 12/05/2023 06:08:31 fecal occult blood, immuno assay, stool 2023 024 [facility] (Centralized Electronic Ordering - All Locations), Patient Can Go To The Location Of Their Choice, [id number] 06/17/2023 18:06:01 Referral gyneco logist referr al - due for screen ing, patien t of Dr. Xiao on 2023 024 aleksander Schaeffer MD, [address] [address], [facility] [address], [place], [address], 05/31/2024 10:23:42 colon & rectal surgeo n referr al - rectal bleedi ng after BM yester day x 2, bright red and gushi ng . Has had simila r but yester day seems worse. no pain, no itchin g, hx rectal absces s, hx hemorr hoids. 2023 024 jeff Rm MD, [address], [facility] [address], [place], [address], 12/01/2023 13:39:27 Procedures None record ed. Surgeries None record ed. Imaging None record ed. Medication Orders flutic asone propio rosy 50 mcg/ac tuatio n nasal spray, suspen yoli 2024 025 [facility] #[id number], [address], [place], [id number], 06/04/2024 11:55:26 lorata dine 10 mg tablet 2024 025 [facility] #13056, [address], [place], [id number], 06/04/2024 11:55:24 triamc inolon e aceton nimisha 0.1 % dental paste 2023 024 [facility] #37885, [address], [place], [id number], 12/16/2023 09:58:51 omepra zole 20 mg capsul e,radha yed releas e 2023 [facility] #81038, [address], [place], [id number], 12/03/2023 13:59:28 mecliz ine 12.5 mg tablet 2023 024 [facility] #69052, [address], [place], [id number], 12/03/2023 14:07:48 tacrol imus 0.1 % topica l ointme nt 2023 024 [facility] #57677, [address], [place], [id number], 06/05/2023 13:37:27 Eucris a 2 % topica l ointme nt 2023 024 [facility]equ[facility] #76151, [address], [place], [id number], 06/04/2024 11:20:46 Triple Paste 12.8 % topica l ointme nt 2023 024 [facility] #03893, [address], [place], [id number], 12/03/2023 13:18:32 Patient TargetsNo targets recorded. Patient Instructions Encounter Date Encounter Id Patient Instructions Last Modified By Organization Details Last Modified Time 03/23/2023 [id number] viral respiratory infection: care instructions [email or web address] Not available 03/23/2023 14:25:39 06/05/2023 [id number] To call or return for worsening or concerns [email or web address] Not available 06/05/2023 13:15:06 12/03/2023 [id number] Cervical Cancer Screening [email or web address] Not available 12/03/2023 13:55:07 To call or return for worsening or concerns [email or web address] Not available 12/03/2023 13:50:06 12/16/2023 [id number] canker sore: care instructions [email or web address] Not available 12/16/2023 09:59:42 sore throat: care instructions [email or web address] Not available 12/16/2023 09:41:18 To call or return for worsening or concerns jthabet Not available 12/16/2023 09:41:12 06/04/2024 [id number] seasonal allergies: care instructions [email or web address] Not available 06/04/2024 11:55:19 Reason for Referral Colon & Rectal Surgeon Refer ral for Hematochezia rectal bleeding after BM yesterday x 2, bright red and gushing . Has had similar but yesterday seems worse. no pain, no itching, hx rectal abscess, hx hemorrhoids. Referring Physician: Jaren [facility]an [facility], Encounter Date: 06/05/2023 Customer Contact Specialist Referral for Sc reening for malignant neoplasm of cervix due for screening, patient of Dr. Schaeffer Referring Physician: [facility], Encounter Date: 12/03/2023 Results Created Date Observation Date Name Description Value Unit Range Abnormal Flag Note LastModifiedBy Organization Detail LastModifiedTime 06/08/19 24 06/17/2023 COLOF IT,OC CULT BLOOD ,FECA L,IA occult blood, fecal, ia Negati ve negati ve Not Available [facility] ([facility]) [address], [place], [address], 06/17/2023 18:06:01 12/16/19 24 12/16/2023 rapid SARS CoV 2 Ag, QL IA, respi rator y speci men RAPID SARS COV 2 negati ve Not Available In-Office Order Internal Use Only DO Not Attach Compendium DO Not Attach Compendium, Do Not Delete/merge, [id number] 12/16/2023 09:56:19 12/16/19 24 12/16/2023 strep group A, DNA, swab ID NOW Strep A 2 (rapid molecular test) negati ve Not Available In-Office Order Internal Use Only DO Not Attach Compendium DO Not Attach Compendium, Do Not Delete/merge, [id number] 12/16/2023 09:41:04 06/05/19 25 06/05/2024 COVID -19, FLU A+B AND RSV sars-cov-2, SHARA Detect ed not detect ed abnormal Patie nts who have a posit sparkle COVID -19 test resul t may now have treat ment optio ns. Treat ment optio ns are avail able for patie nts with mild to moder ate sympt oms and for hospi taliz ed patie nts. Visit our websi te at [email or web address] :[email or web address] for resou shawna and sajir juli kirkland Not Available [facility] ([facility]) [address], [place], [address], 06/05/2024 18:05:52 06/05/19 25 06/05/2024 COVID -19, FLU A+B AND RSV influenza A, SHARA Not Detect ed not detect ed Not Available [facility] ([facility]) [address], [place], [address], 06/05/2024 18:05:52 06/05/19 25 06/05/2024 COVID -19, FLU A+B AND RSV influenza B, SHARA Not Detect ed not detect ed Not Available [facility] ([facility]) [address] [place], [address], 06/05/2024 18:05:52 06/05/19 25 06/05/2024 COVID -19, FLU A+B AND RSV RSV, SHARA Not Detect ed not detect ed Not Available [facility] ([facility]) [address], [place], [address], 06/05/2024 18:05:52 06/05/19 25 06/05/2024 COVID -19, FLU A+B AND RSV test information: Commen t This nucle ic acid ampli ficat ion test was devel oped and its perfo rmanc e dwayne cteri stics deter mined by [facility]. Nucle ic acid ampli ficat ion tests inclu de RT-PC R and TMA. This test has not been FDA clear ed or appro roxie. This test has been autho rized by FDA under an Emerg ency Use Autho rizat ion (EUA) . This test is only autho rized for the durat ion of time the decla ratio n that circu mstan daljit exist justi fying the autho rizat ion of the emerg ency use of in vitro diagn ostic tests for detec tion of SARS- CoV-2 virus and/o r diagn osis of COVID -19 infec tion under secti on 564(b )(1) of the Act, 21 U.S.C . 360bb b-3(b ) (1), unles s the autho rizat ion is termi nated or revok ed soone r. When diagn ostic testi ng is negat sparkle, the possi bilit y of a false negat sparkle resul t shoul d be consi dered in the adali xt of a patie nt's recen t expos ures and the prese nce of clini sarah signs and sympt oms consi stent with COVID -19. An indiv idual witho ut sympt oms of COVID -19 and who is not harris ing SARS- CoV-2 virus would expec t to have a negat sparkle (not detec hugo) resul t in this assay . Not Available [facility] ([facility]) [address], [place], [address], 06/05/2024 18:05:52 Result Notes None recorded. Problems Name Problem SNOMED Code Status Onset Date Resolution Date Notes Provider Name and Address Organization Details Recorded Time Abdomina l pain 82680839 Completed 09/05/2016 Jaren Teran, [facility] [address], [place], [address] , [facility] 3 12:38:55 Knee pain Completed 09/05/2016 Lucero cruz [facility] 7 08:46:30 Pain of elbow region 37495940 Completed 09/05/2016 Lucero cruz [facility] 7 08:46:52 Dysuria 25042879 Completed 09/05/2016 Lucero cruz [facility] 7 08:46:45 Urinary tract infectio us disease 41321476 Completed 10/08/2017 Jaren Teran, [facility] [address], [place], [address] , [facility] 3 12:04:24 Upper respirat ory infectio n 97726246 Completed 06/30/2017 CELIA Adames, [facility] 8 16:17:41 Thoracic back pain 664393085 Active Not Available [facility] 3 04:29:09 Allergic rhinitis 30861002 Active Not Available [facility] 3 04:29:09 Contact dermatit is 81506311 Completed 10/08/2017 CELIA Adames, [facility] 8 11:25:37 Increase d frequenc y of urinatio n 316316941 Completed 09/05/2016 Lucero cruz [facility] 7 08:46:26 Diarrhea 74825441 Completed 09/05/2016 Lucero cruz [facility] 7 08:46:57 Nausea 416491783 Completed 09/05/2016 Lucero cruz [facility] 7 08:46:42 Dizzines s 355927927 Completed 09/05/2016 Lucero cruz [facility] 7 08:46:39 Advance directiv e discusse d with patient 798129887 Completed 09/05/2016 Lucero cruz [facility] 7 08:47:01 Asthma 928043647 Active Not Available [facility] 3 04:29:09 Bilatera l cyst of breasts 39144615250 345919 Active Not Available [facility] 3 04:29:09 Patient status finding 552286104 Completed 09/05/2016 Lucero cruz [facility] 7 08:46:21 Influenz a vaccine needed 82083788085 06 Completed 09/05/2016 Lucero cruz [facility] 7 08:46:24 Adult health examinat ion Completed 09/05/2016 Lucero cruz [facility] 7 08:46:36 HIV detected 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 Active Not Available [facility] 3 04:29:09 Human immunode ficiency virus infectio n 11729371 Completed 04/08/2022 CELIA Berry [facility] 3 13:16:16 Malaise and fatigue 102993768 Completed 09/05/2016 Lucero cruz [facility] 7 08:46:33 Hemorrha ge of rectum and anus 856514254 Active Not Available [facility] 3 04:29:09 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 1984 Not Available [facility] 3 04:29:09 General examinat ion of patient Completed 200709/15/2013 RECORDED 11/23/19 08 4:21PM BY PERI FITZGERALD, ANNOTATI ON/ADDEN DUM Jaren Teran, [facility] [address], [place], [address] , [facility] 6 10:11:07 General examinat ion of patient Completed 200709/16/2013 RECORDED 11/23/19 08 4:21PM BY PERI FITZGERALD, ANNOTATI ON/ADDEN DUM Jaren Teran, [facility] [address], [place], [address] , [facility] 6 10:11:07 General examinat ion of patient Completed 200708/23/2013 RECORDED 11/23/19 08 4:21PM BY PERI FITZGERALD, ANNOTATI ON/ADDEN DUM [facility]aren Teran, [facility] [address] [facility] [address], [place], [address] , [facility] 6 10:11:07 Administ ration of bacteria l and viral vaccine Completed 200709/15/2013 RECORDED 11/24/19 08 10:11AM BY CELIA SANCHEZ, OFFICE VISIT Jaren Teran, [facility] [address] [facility], [place], [address] , [facility] 6 10:11:07 Tubercul osis screenin g Completed 200709/15/2013 RECORDED 11/24/19 08 10:20AM BY CELIA SANCHEZ, OFFICE VISIT Jaren Teran, [facility] [address] [facility] [address], [place], [address] , [facility] 6 10:11:07 Administ ration of bacteria l and viral vaccine Completed 200709/16/2013 RECORDED 11/24/19 08 10:11AM BY CELIA SANCHEZ, OFFICE VISIT Jaren Teran, [facility] [address], [place], [address] , [facility] 6 10:11:07 Tubercul osis screenin g Completed 200709/16/2013 RECORDED 11/24/19 08 10:20AM BY CELIA SANCHEZ, OFFICE VISIT Jaren Teran, [facility] [address] [facility] [address], [place], [address] , [facility] 6 10:11:07 Administ ration of bacteria l and viral vaccine Completed 200708/23/2013 RECORDED 11/24/19 08 10:11AM BY CELIA SANCHEZ, OFFICE VISIT Jaren Teran, [facility] [address] [facility] [address], [place], [address] , [facility] 6 10:11:07 Tubercul osis screenin g Completed 200708/23/2013 RECORDED 11/24/19 08 10:20AM BY CELIA SANCHEZ, OFFICE VISIT Jaren Teran, [facility] [address], [place], [address] , [facility] 6 10:11:07 Active or passive immuniza tion Completed 200809/15/2013 RECORDED 11/22/19 09 11:09AM BY ROSSANA YAN PA-C, OFFICE VISIT Jaren Teran, [facility] [address] [facility] [address], [place], [address] , [facility] 6 10:11:07 Active or passive immuniza tion Completed 200809/16/2013 RECORDED 11/22/19 09 11:09AM BY ROSSANA YAN PA-C, OFFICE VISIT Jaern Teran, [facility] [address], [place], [address] , [facility] 6 10:11:07 Active or passive immuniza tion Completed 200808/23/2013 RECORDED 11/22/19 09 11:09AM BY ROSSANA YAN PA-C, OFFICE VISIT Jaren Teran [facility] [address] [address], [place], [address] , [facility] 6 10:11:07 Influenz a vaccine needed 87020416250 06 Completed 201009/15/2013 DATE: 10/12/19 11; RECORDED 01/20/20 12 8:34AM BY NORRIS EUBANKS MA, JARREDATI ON/ADDEN [facility] 08[facility]46[facility]24 Infectiv e hepatiti s immuniza tion Completed 201009/15/2013 DATE: 10/12/19 11; RECORDED 09/09/19 12 1:05PM BY NORRIS EUBANKS MA, DEANDRE ON/HAWAEN LETY Teran, [address] [place] [address] [address], [place], [address] , [facility] 6 10:11:07 Influenz a vaccine needed 17681164230 06 Completed 201009/16/2013 DATE: 10/12/19 11; RECORDED 01/20/20 12 8:34AM BY NORRIS EUBANKS MA, JARREDATI ON/[facility] 7 08:46:24 Infectiv e hepatiti s immuniza tion Completed 201009/16/2013 DATE: 10/12/19 11; RECORDED 09/09/19 12 1:05PM BY NORRIS EUBANKS MA, DEANDRE ON/GRAEME Teran [address] [address], [place], [address] , [facility] 6 10:11:07 Influenz a vaccine needed 21140333879 06 Completed 201008/23/2013 DATE: 10/12/19 11; RECORDED 01/20/20 12 8:34AM BY NORRIS EUBANKS MA, ANNOTATI ON/ADDEN DUM [facility] 7 08:46:24 Infectiv e hepatiti s immuniza tion Completed 201008/23/2013 DATE: 10/12/19 11; RECORDED 09/09/19 12 1:05PM BY NORRIS EUBANKS MA, ANNOTATI ON/ADDEN DUM Jaren Teran, [facility] [address] [address], [place], [address] , [facility] 6 10:11:07 Administ ration of measles and mumps and rubella vaccine Completed 201109/15/2013 DATE: 02/17/19 12; RECORDED 09/09/19 12 1:05PM BY NORRIS EUBANKS MA, DEANDRE ON/ADDEN DUM Jaren Teran, [facility] [address] [address], [place], [address] , [facility] 6 10:11:07 Varicell a vaccinat ion Completed 201109/15/2013 RECORDED 02/17/19 12 12:59PM BY CELIA SANCHEZ, NURSE VISIT Jaren Teran, [facility] [address] [address], [place], [address] , [facility] 6 10:11:07 Administ ration of measles and mumps and rubella vaccine Completed 201109/16/2013 DATE: 02/17/19 12; RECORDED 09/09/19 12 1:05PM BY NORRIS EUBANKS MA, DEANDRE ON/ADDEN DUM Jaren Teran, [facility] [address] [address], [place], [address] , [facility] 6 10:11:07 Varicell a vaccinat ion Completed 201109/16/2013 RECORDED 02/17/19 12 12:59PM BY CELIA SANCHEZ, NURSE VISIT Jaren Teran, [facility] [address] [facility] [address], [place], [address] , [facility] 6 10:11:07 Administ ration of measles and mumps and rubella vaccine Completed 201108/23/2013 DATE: 02/17/19 12; RECORDED 09/09/19 12 1:05PM BY NORRIS EUBANKS MA, DEANDRE ON/ADDEN DUM Jaren Teran, [facility] [address] [facility] [address], [place], [address] , [facility] 6 10:11:07 Varicell a vaccinat ion Completed 201108/23/2013 RECORDED 02/17/19 12 12:59PM BY CELIA SANCHEZ, NURSE VISIT Jaren Teran, [facility] [address] [facility] [address], [place], [address] , [facility] 6 10:11:07 Cyst of ovary 43429790 Completed 201109/15/2013 DATE: 07/21/19 12; ; RECORDED 09/09/19 12 1:05PM BY NORRIS EUBANKS MA, DEANDRE ON/ADDEN LETY Teran, [facility] [address] [facility] [address], [place], [address] , [facility] 6 10:11:06 Cyst of ovary 65552963 Completed 201109/16/2013 DATE: 07/21/19 12; ; RECORDED 09/09/19 12 1:05PM BY NORRIS EUBANKS MA, DEANDRE ON/GRAEME Teran, [facility] [address] [facility] [address], [place], [address] , [facility] 6 10:11:06 Cyst of ovary 02000689 Completed 201108/23/2013 DATE: 07/21/19 12; ; RECORDED 09/09/19 12 1:05PM BY NORRIS EUBANKS MA, DEANDRE ON/ADDLAMAR Teran, [facility] [address], [place], [address] , [facility] 6 10:11:06 Loss of appetite 21177074 Completed 201109/15/2013 RECORDED 09/09/19 12 1:05PM BY NORRIS EUBANKS MA, ANNOTATI ON/GRAEME Teran, [facility] [address], [place], [address] , [facility] 6 10:11:06 Backache 294233504 Completed 201109/15/2013 IMPRESSI ON: MIDLINE THORACIC PAIN AND TENDERNE SS. CHECK XRAY, WILL F/U WITH ME IN OFFICE SCHED IN JULY.; RECORDED 09/09/19 12 1:05PM BY NORRIS EUBANKS MA, DEANDRE ON/GRAEME Teran, [facility] [address], [place], [address] , [facility] 6 10:11:06 Bronchit is [id number] Completed 201109/15/2013 IMPRESSI ON: SXS X PAST WEEK. EVAL THROUGH ER (), TXED WITH RANDA (DAY 4) AND DANYA AC. SIG RALES ON EXAM. AFTER IN OFFICE NEB TX VERY MODEST IMPROVEM ENT. REPEAT CXR, ADDITION AL MEDS OUTLINED . WILL CONTACT HER WITH RESULTS WHEN AVAILABL E, SHE IS TO CALL SOONER OR SEEK MORE IMMEDIAT E ATTN VIA ER FOR WORSENIN G.; RECORDED 09/09/19 12 1:05PM BY NORRIS EUBANKS MA, DEANDRE ON/GRAEME Teran, [facility] [address] [address], [place], [address] , [facility] 6 10:11:06 Cellulit is 399575333 Completed 201109/15/2013 RECORDED 09/09/19 12 1:05PM BY NORRIS EUBANKS MA, DEANDRE ON/GRAEME Teran, [facility] [address] [facility] [address], [place], [address] , [facility] 6 10:11:06 Chest pain 15664090 Completed 201109/15/2013 IMPRESSI ON: SOUNDS LIKE ANXIETY SECONDAR Y TO MEDICATI ON, HOWEVER BASED ON SXS MAY BE MILD ASTHMATI C REACTION FROM STRESS. INSTRUCT ED RE USE OF INHALER, TRIAL X NEXT COUPLE OF MONTHS. TO INFORM ME OF WORSENIN G SXS.; RECORDED 09/09/19 12 1:05PM BY NORRIS EUBANKS MA, DEANDRE ON/GRAEME Teran, [facility] [address] [address], [place], [address] , [facility] 6 10:11:06 Molina orr Completed 201109/15/2013 IMPRESSI ON: > 50% OF VISIT SPENT MOLINA ORR PT. SHE HAS SEVERAL CONCERNS TODAY 1. WANTS HER HEAD CHECKED , BUT DENIES NEW H/A, CONFUSIO N, DIZZINES S, NEW FOCAL NEURO SXS. ADVISED HER THAT W/OUT THE ABOVE CHANGES AN MRI IS NOT INDICATE D. 2. LUMPS ON HER BACK, R AXILLA AND L RIB. THE ONLY THAT I APPRECIA TE ON EXAM IS HER R LOWER BACK, MAY REPRESEN T A LIPOMA. IT IS SMALL IN SIZE AND I THINK IT BEST AT THIS POINT TO FOLLOW. 3. WANTS HER ORGANS CHECKED , ASSURED HER THAT ID MONITORS HER BLOODWOR K QUITE CAREFULL Y TO REVIEW WITH THEM. I AM GOING TO DEFER FURTHER VACCINAT ION TO THEM, WE ARE WORKING ON FLAQUITA ORR HER HEP B SERIES. SHE STILL PLANS TO MOVE TO [place] IN LAST SUMMER EARLY FALL, BELIEVES SHE MAY HAVE FOUND AN ID OFFICE WHICH SHE PLANS TO VISIT DURING HER UPCOMING VACATION . I AM REQ MOST RECENT ID LABS AND NOTES FROM [facility].; RECORDED 09/09/19 12 1:05PM BY NORRIS EUBANKS MA, DEANDRE ON/GRAEME Teran, [facility] [address], [place], [address] , [facility] 6 10:11:07 Weakness of face muscles 15763968 Completed 201109/15/2013 STORY: SUBJECTI VE. WITH NL EXAM TODAY IN OFFICE- PERHAPS A RESOLVIN Robert BELTRÁN'S. SXS X NEARLY 2 MONTHS. PT DID HAVE SOMEWHAT RECENT NL MRI OF HEAD AFTER NEW ONSET HEADACHE AND HX OF HIV. SHE DOES HAVE HX OF ANXIETY- WILL CONTINUE TO MONITOR AND LET ME KNOW IF SXS APPEAR TO WORSEN.; RECORDED 09/09/19 12 1:05PM BY NORRIS EUBANKS MA, ANNOTATI ON/GRAEME Teran, [facility] [address], [place], [address] , [facility] 6 10:11:06 Nausea 062400692 Completed 201109/15/2013 IMPRESSI ON: SECONDAR Y TO HIV MEDS.; RECORDED 09/09/19 12 1:05PM BY NORRIS EUBANKS MA, ANNOTATI ON/GRAEME cruz, [facility] 7 08:46:42 Headache 26180479 Completed 201109/15/2013 IMPRESSI ON: IN THE SETTING OF HIV DZ. NOT ACUTELY ILL, NEEDS IMAGING. WILL ARRANGE AND INFORM PT TIME AND DATE. MAY NEED ADDITION AL NEURO W/U IF INDICATE D.; RECORDED 09/09/19 12 1:06PM BY NORRIS EUBANKS MA, ANNOTATI ON/GRAEME Teran, [facility] [address] [facility] [address], [place], [address] , [facility] 6 10:11:06 Female genital organ symptoms [id number] Completed 201109/15/2013 IMPRESSI ON: EVAL RECENTLY AT [facility] . I HAVE NO RECORDS FOR REVIEW AT THIS TIME BUT SOUNDS LIKE THEY ONLY PERFORME D ABDO/PEL ANNA US NOT TRANSVAG . PT HESITANT SHE HAS NEVER BEEN SEXUALLY ACTIVE. EXPLAINE D THIS IS THE BEST WAY TO VISUALIZ E OVARIES. WE WILL ARRANGE AND INFORM HER OF TIME AND DATE.; RECORDED 09/09/19 12 1:05PM BY NORRIS EUBANKS MA, DEANDRE MACK/GRAEME Teran, [facility] [address] [facility] [address], [place], [address] , [facility] 6 10:11:06 Vaginiti s and vulvovag initis Completed 201109/15/2013 RECORDED 09/09/19 12 1:05PM BY NORRIS EUBANKS MA, DEANDRE MACK/GRAEME Teran, [facility] [address] [address], [place], [address] , [facility] 6 10:11:06 Candidal vulvovag initis [id number] Completed 201109/15/2013 RECORDED 09/09/19 12 1:06PM BY NORRIS EUBANKS MA, DEANDRE ON/GRAEME Teran, [facility] [address] [address], [place], [address] , [facility] 6 10:11:06 Loss of appetite [id number] Completed 201109/16/2013 RECORDED 09/09/19 12 1:05PM BY NORRIS EUBANKS MA, DEANDRE MACK/GRAEME Teran, [facility] [address] [address], [place], [address] , [facility] 6 10:11:06 Backache [id number] Completed 201109/16/2013 IMPRESSI ON: MIDLINE THORACIC PAIN AND TENDERNE SS. CHECK XRAY, WILL F/U WITH ME IN OFFICE SCHED IN JULY.; RECORDED 09/09/19 12 1:05PM BY NORRIS EUBANKS MA, DEANDRE MACK/GRAEME Teran, [facility] [address] [facility] [address], [place], [address] , [facility] 6 10:11:06 Bronchit is [id number] Completed 201109/16/2013 IMPRESSI ON: SXS X PAST WEEK. EVAL THROUGH ER (), TXED WITH AZITHRO (DAY 4) AND GUIATUSS AC. SIG RALES ON EXAM. AFTER IN OFFICE NEB TX VERY MODEST IMPROVEM ENT. REPEAT CXR, ADDITION AL MEDS OUTLINED . WILL CONTACT HER WITH RESULTS WHEN AVAILABL E, SHE IS TO CALL SOONER OR SEEK MORE IMMEDIAT E ATTN VIA ER FOR WORSENIN G.; RECORDED 09/09/19 12 1:05PM BY NORRIS EUBANKS MA, DEANDRE ON/GRAEME Teran, [facility] [address] [facility] [address], [place], [address] , [facility] 6 10:11:06 Cellulit is [id number] Completed 201109/16/2013 RECORDED 09/09/19 12 1:05PM BY NORRIS EUBANKS MA, DEANDRE ON/GRAEME Teran, [facility] [address], [place], [address] , [facility] 6 10:11:06 Chest pain [id number] Completed 201109/16/2013 IMPRESSI ON: SOUNDS LIKE ANXIETY SECONDAR Y TO MEDICATI ON, HOWEVER BASED ON SXS MAY BE MILD ASTHMATI C REACTION FROM STRESS. INSTRUCT ED RE USE OF INHALER, TRIAL X NEXT COUPLE OF MONTHS. TO INFORM ME OF WORSENIN G SXS.; RECORDED 09/09/19 12 1:05PM BY NORRIS EUBANKS MA, DEANDRE ON/RGAEME Teran [facility] [address], [place], [address] , [facility] 6 10:11:06 Molina orr Completed 201109/16/2013 IMPRESSI ON: > 50% OF VISIT SPENT MOLINA ORR PT. SHE HAS SEVERAL CONCERNS TODAY 1. WANTS HER HEAD CHECKED , BUT DENIES NEW H/A, CONFUSIO N, DIZZINES S, NEW FOCAL NEURO SXS. ADVISED HER THAT W/OUT THE ABOVE CHANGES AN MRI IS NOT INDICATE D. 2. LUMPS ON HER BACK, R AXILLA AND L RIB. THE ONLY THAT I APPRECIA TE ON EXAM IS HER R LOWER BACK, MAY REPRESEN T A LIPOMA. IT IS SMALL IN SIZE AND I THINK IT BEST AT THIS POINT TO FOLLOW. 3. WANTS HER ORGANS CHECKED , ASSURED HER THAT ID MONITORS HER BLOODWOR K QUITE CAREFULL Y TO REVIEW WITH THEM. I AM GOING TO DEFER FURTHER VACCINAT ION TO THEM, WE ARE WORKING ON COMPLETI NG HER HEP B SERIES. SHE STILL PLANS TO MOVE TO [place] IN LAST SUMMER EARLY FALL, BELIEVES SHE MAY HAVE FOUND AN ID OFFICE WHICH SHE PLANS TO VISIT DURING HER UPCOMING VACATION . I AM REQ MOST RECENT ID LABS AND NOTES FROM [facility].; RECORDED 09/09/19 12 1:05PM BY NORRIS EUBANKS MA, DEANDRE ON/GRAEME Teran, [facility] [address] [facility] [address], [place], [address] , [facility] 6 10:11:07 Weakness of face muscles [id number] Completed 201109/16/2013 STORY: SUBJECTI VE. WITH NL EXAM TODAY IN OFFICE- PERHAPS A JANNIE BELTRÁN'S. SXS X NEARLY 2 MONTHS. PT DID HAVE SOMEWHAT RECENT NL MRI OF HEAD AFTER NEW ONSET HEADACHE AND HX OF HIV. SHE DOES HAVE HX OF ANXIETY- WILL CONTINUE TO MONITOR AND LET ME KNOW IF SXS APPEAR TO WORSEN.; RECORDED 09/09/19 12 1:05PM BY NORRIS EUBANKS MA, ANNOTATI ON/GRAEME Teran, [facility] [address], [place], [address] , [facility] 6 10:11:06 Nausea [id number] Completed 201109/16/2013 IMPRESSI ON: SECONDAR Y TO HIV MEDS.; RECORDED 09/09/19 12 1:05PM BY NORRIS EUBANKS MA, ANNOTATI ON/ADDEN LETY Todd [facility] 08:46:42 Headache [id number] Completed 201109/16/2013 IMPRESSI ON: IN THE SETTING OF HIV DZ. NOT ACUTELY ILL, NEEDS IMAGING. WILL ARRANGE AND INFORM PT TIME AND DATE. MAY NEED ADDITION AL NEURO W/U IF INDICATE D.; RECORDED 09/09/19 12 1:06PM BY NORRIS EUBANKS MA, DEANDRE ON/ADDLAMAR Teran, [facility] [address] [facility] [address], [place], [address] , [facility] 6 10:11:06 Female genital organ symptoms [id number] Completed 201109/16/2013 IMPRESSI ON: EVAL RECENTLY AT [facility] . I HAVE NO RECORDS FOR REVIEW AT THIS TIME BUT SOUNDS LIKE THEY ONLY PERFORME D ABDO/PEL ANNA US NOT TRANSVAG . PT HESITANT SHE HAS NEVER BEEN SEXUALLY ACTIVE. EXPLAINE D THIS IS THE BEST WAY TO VISUALIZ E OVARIES. WE WILL ARRANGE AND INFORM HER OF TIME AND DATE.; RECORDED 09/09/19 12 1:05PM BY NORRIS EUBANKS MA, DEANDRE MACK/ASAEL Buckley [address] [address], [place], [address] , [facility] 6 10:11:06 Vaginiti s and vulvovag initis Completed 201109/16/2013 RECORDED 09/09/19 12 1:05PM BY NORRIS EUBANKS MA, ANNOTATI ON/ASAEL Buckley [address] [facility] [address], [place], [address] , [facility] 6 10:11:06 Candidal vulvovag initis [id number] Completed 201109/16/2013 RECORDED 09/09/19 12 1:06PM BY NORRIS EUBANKS MA, ANNOTATI ON/ASAEL Buckley [address] [facility] [address], [place], [address] , [facility] 6 10:11:06 Loss of appetite [id number] Completed 201108/23/2013 RECORDED 09/09/19 12 1:05PM BY NORRIS EUBANKS MA, JARREDATI ON/ASAEL Buckley [address] [address], [place], [address] , [facility] 6 10:11:06 Backache [id number] Completed 201108/23/2013 IMPRESSI ON: MIDLINE THORACIC PAIN AND TENDERNE SS. CHECK XRAY, WILL F/U WITH ME IN OFFICE SCHED IN JULY.; RECORDED 09/09/19 12 1:05PM BY NORRIS EUBANKS MA, DEANDRE ON/ASAEL Buckley [address] [address], [place], [address] , [facility] 6 10:11:06 Bronchit is [id number] Completed 201108/23/2013 IMPRESSI ON: SXS X PAST WEEK. EVAL THROUGH ER (), TXED WITH RANDA (DAY 4) AND DANYA AC. SIG RALES ON EXAM. AFTER IN OFFICE NEB TX VERY MODEST IMPROVEM ENT. REPEAT CXR, ADDITION AL MEDS OUTLINED . WILL CONTACT HER WITH RESULTS WHEN AVAILABL E, SHE IS TO CALL SOONER OR SEEK MORE IMMEDIAT E ATTN VIA ER FOR WORSENIN G.; RECORDED 09/09/19 12 1:05PM BY NORRIS EUBANKS MA, DEANDRE ON/GRAEME Teran, [facility] [address] [address], [place], [address] , [facility] 6 10:11:06 Cellulit is [id number] Completed 201108/23/2013 RECORDED 09/09/19 12 1:05PM BY NORRIS EUBANKS MA, DEANDRE ON/GRAEME Teran, [facility] [address], [place], [address] , [facility] 6 10:11:06 Chest pain [id number] Completed 201108/23/2013 IMPRESSI ON: SOUNDS LIKE ANXIETY SECONDAR Y TO MEDICATI ON, HOWEVER BASED ON SXS MAY BE MILD ASTHMATI C REACTION FROM STRESS. INSTRUCT ED RE USE OF INHALER, TRIAL X NEXT COUPLE OF MONTHS. TO INFORM ME OF WORSENIN G SXS.; RECORDED 09/09/19 12 1:05PM BY NORRIS EUBANKS MA, ANNOTATI ON/GRAEME Teran, [facility] [address] [facility] [address], [place], [address] , [facility] 6 10:11:06 Molina orr Completed 201108/23/2013 IMPRESSI ON: > 50% OF VISIT SPENT MOLINA ORR PT. SHE HAS SEVERAL CONCERNS TODAY 1. WANTS HER HEAD CHECKED , BUT DENIES NEW H/A, CONFUSIO N, DIZZINES S, NEW FOCAL NEURO SXS. ADVISED HER THAT W/OUT THE ABOVE CHANGES AN MRI IS NOT INDICATE D. 2. LUMPS ON HER BACK, R AXILLA AND L RIB. THE ONLY THAT I APPRECIA TE ON EXAM IS HER R LOWER BACK, MAY REPRESEN T A LIPOMA. IT IS SMALL IN SIZE AND I THINK IT BEST AT THIS POINT TO FOLLOW. 3. WANTS HER ORGANS CHECKED , ASSURED HER THAT ID MONITORS HER BLOODWOR K QUITE CAREFULL Y TO REVIEW WITH THEM. I AM GOING TO DEFER FURTHER VACCINAT ION TO THEM, WE ARE WORKING ON FLAQUITA ORR HER HEP B SERIES. SHE STILL PLANS TO MOVE TO [place] IN LAST SUMMER EARLY FALL, BELIEVES SHE MAY HAVE FOUND AN ID OFFICE WHICH SHE PLANS TO VISIT DURING HER UPCOMING VACATION . I AM REQ MOST RECENT ID LABS AND NOTES FROM [facility].; RECORDED 09/09/19 12 1:05PM BY NORRIS EUBANKS MA, ANNOTATI ON/GRAEME Teran, [facility] [address], [place], [address] , [facility] 6 10:11:07 Weakness of face muscles [id number] Completed 201108/23/2013 STORY: SUBJECTI VE. WITH NL EXAM TODAY IN OFFICE- PERHAPS A RESOLVIN Robert BELTRÁN'S. SXS X NEARLY 2 MONTHS. PT DID HAVE SOMEWHAT RECENT NL MRI OF HEAD AFTER NEW ONSET HEADACHE AND HX OF HIV. SHE DOES HAVE HX OF ANXIETY- WILL CONTINUE TO MONITOR AND LET ME KNOW IF SXS APPEAR TO WORSEN.; RECORDED 09/09/19 12 1:05PM BY NORRIS EUBANKS MA, DEANDRE ON/ADDLAMAR Teran, [facility] [address], [place], [address] , [facility] 6 10:11:06 Human immunode ficiency virus infectio n [id number] Completed 201108/23/2013 FROM ; RECORDED 09/09/19 12 1:05PM BY NORRIS EUBANKS MA, ANNOTATI ON/GRAEME Roldan MA [facility] 3 13:16:16 Nausea [id number] Completed 201108/23/2013 IMPRESSI ON: SECONDAR Y TO HIV MEDS.; RECORDED 09/09/19 12 1:05PM BY NORRIS EUBANKS MA, DEANDRE ON/ADDLAMAR Todd MA [facility] 7 08:46:42 Headache [id number] Completed 201108/23/2013 IMPRESSI ON: IN THE SETTING OF HIV DZ. NOT ACUTELY ILL, NEEDS IMAGING. WILL ARRANGE AND INFORM PT TIME AND DATE. MAY NEED ADDITION AL NEURO W/U IF INDICATE D.; RECORDED 09/09/19 12 1:06PM BY NORRIS EUBANKS MA, ANNOTATI ON/GRAEME Teran, [facility] [address], [place], [address] , [facility] 6 10:11:06 Female genital organ symptoms [id number] Completed 201108/23/2013 IMPRESSI ON: EVAL RECENTLY AT [facility] . I HAVE NO RECORDS FOR REVIEW AT THIS TIME BUT SOUNDS LIKE THEY ONLY PERFORME D ABDO/PEL ANNA US NOT TRANSVAG . PT HESITANT SHE HAS NEVER BEEN SEXUALLY ACTIVE. EXPLAINE D THIS IS THE BEST WAY TO VISUALIZ E OVARIES. WE WILL ARRANGE AND INFORM HER OF TIME AND DATE.; RECORDED 09/09/19 12 1:05PM BY NORRIS EUBANKS MA, DEANDRE ON/GRAEME Teran, [facility] [address], [place], [address] , [facility] 6 10:11:06 Vaginiti s and vulvovag initis Completed 201108/23/2013 RECORDED 09/09/19 12 1:05PM BY NORRIS EUBANKS MA, DEANDRE ON/GRAEME Teran, [facility] [address] [facility] [address], [place], [address] , [facility] 6 10:11:06 Candidal vulvovag initis [id number] Completed 201108/23/2013 RECORDED 09/09/19 12 1:06PM BY NORRIS EUBANKS MA, DEANDRE ON/GRAEME Teran, [facility] [address] [facility] [address], [place], [address] , [facility] 6 10:11:06 Acute pharyngi tis [id number] Completed 201109/15/2013 IMPRESSI ON: RAPID STREP NEG, WILL SEND OUT AND INFORM PT IF POS. ADVISED RE REST, FLUIDS, WARM SALT WATER GARGLES, TEA W/HONEY, OTC ANALGESI CS. CALL FOR WORSENIN G/PRN.; RECORDED 10/21/19 12 7:53AM BY NORRIS EUBANKS MA, JARREDATI ON/GRAEME azar MA null, [facility] 4 09:29:57 Acute pharyngi tis [id number] Completed 201109/16/2013 IMPRESSI ON: RAPID STREP NEG, WILL SEND OUT AND INFORM PT IF POS. ADVISED RE REST, FLUIDS, WARM SALT WATER GARGLES, TEA W/HONEY, OTC ANALGESI CS. CALL FOR WORSENIN G/PRN.; RECORDED 10/21/19 12 7:53AM BY NORRIS EUBANKS MA, DEANDRE ON/ADDCELIA Li, [facility] 4 09:29:57 Acute pharyngi tis [id number] Completed 201108/23/2013 IMPRESSI ON: RAPID STREP NEG, WILL SEND OUT AND INFORM PT IF POS. ADVISED RE REST, FLUIDS, WARM SALT WATER GARGLES, TEA W/HONEY, OTC ANALGESI CS. CALL FOR WORSENIN G/PRN.; RECORDED 10/21/19 12 7:53AM BY NORRIS EUBANKS MA, DEANDRE ON/GRAEME azar MA null, [facility] 4 09:29:57 Anxiety state [id number] Completed 201109/15/2013 IMPRESSI ON: MAINLY RE TAKING HIV MEDICATI ONS. SEEING THERAPIS T EVERY OTHER WEEK. HAS NOT DONE WELL IN PAST ON SSRI OR ANXIOLYT ICS.; RECORDED 01/20/20 12 8:34AM BY NORRIS EUBANKS MA, ANNOTATI ON/GRAEME Teran, [facility] [address] [facility] [address], [place], [address] , [facility] 6 10:11:06 Nonvenom ous insect bite of multiple sites [id number] Completed 201109/15/2013 IMPRESSI ON: ONE SMALL LESION THAT APPEARS CONSISTE NT WITH INSECT BITE. NOT CLEARLY BED BUG OR SCABIES RELATED. MONITOR, CLEAN APT THOROUGH LY, WASH ALL BEDDING/ LINENS. CONTACT ME PRN; RECORDED 01/20/20 12 8:34AM BY NORRIS EUBANKS MA, DEANDRE MACK/GRAEME Teran, [facility] [address] [facility] [address], [place], [address] , [facility] 6 10:11:07 Anxiety state [id number] Completed 201109/16/2013 IMPRESSI ON: MAINLY RE TAKING HIV MEDICATI ONS. SEEING THERAPIS T EVERY OTHER WEEK. HAS NOT DONE WELL IN PAST ON SSRI OR ANXIOLYT ICS.; RECORDED 01/20/20 12 8:34AM BY NORRIS EUBANKS MA, JARREDATI ON/ADDEN LETY Teran, [facility] [address] [facility] [address], [place], [address] , [facility] 6 10:11:06 Nonvenom ous insect bite of multiple sites [id number] Completed 201109/16/2013 IMPRESSI ON: ONE SMALL LESION THAT APPEARS CONSISTE NT WITH INSECT BITE. NOT CLEARLY BED BUG OR SCABIES RELATED. MONITOR, CLEAN APT THOROUGH LY, WASH ALL BEDDING/ LINENS. CONTACT ME PRN; RECORDED 01/20/20 12 8:34AM BY NORRIS EUBANKS MA, DEANDRE ON/ADDEN DUM Jaren Teran, [facility] [address] [facility] [address], [place], [address] , [facility] 6 10:11:07 Anxiety state [id number] Completed 201108/23/2013 IMPRESSI ON: MAINLY RE TAKING HIV MEDICATI ONS. SEEING THERAPIS T EVERY OTHER WEEK. HAS NOT DONE WELL IN PAST ON SSRI OR ANXIOLYT ICS.; RECORDED 01/20/20 12 8:34AM BY NORRIS EUBANKS MA, DEANDRE ON/ADDEN DUM Jaren Teran, [facility] [address] [facility] [address], [place], [address] , [facility] 6 10:11:06 Nonvenom ous insect bite of multiple sites [id number] Completed 201108/23/2013 IMPRESSI ON: ONE SMALL LESION THAT APPEARS CONSISTE NT WITH INSECT BITE. NOT CLEARLY BED BUG OR SCABIES RELATED. MONITOR, CLEAN APT THOROUGH LY, WASH ALL BEDDING/ LINENS. 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 [id number] Completed 201209/15/2013 RECORDED 02/22/19 13 9:38AM BY NORRIS EUBANKS MA, DEANDRE ON/GRAEME Teran, [facility] [address] [facility] [address] [facility], [place], [address] , [facility] 6 10:11:06 Acne [id number] Completed 201209/16/2013 IMPRESSI ON: SEEKS FURTHER EVAL AND TX THROUGH DERM.; RECORDED 02/22/19 13 9:38AM BY NORRIS EUBANKS MA, DEANDRE MACK/GRAEME Teran, [facility] [address] [facility] [address] [facility], [place], [address] , [facility] 6 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 [id number] Completed 201209/16/2013 RECORDED 02/22/19 13 9:38AM BY NORRIS EUBANKS MA, DEANDRE MACK/GRAEME Teran, [facility] [address] [facility] [address], [place], [address] , [facility] 6 10:11:06 Acne [id number] Completed 201208/23/2013 IMPRESSI ON: SEEKS FURTHER EVAL AND TX THROUGH DERM.; RECORDED 02/22/19 13 9:38AM BY NORRIS EUBANKS MA, DEANDRE ON/GRAEME Teran, [facility] [address] [facility] [address], [place], [address] , [facility] 6 10:11:06 Adult health examinat ion Completed 201208/23/2013 IMPRESSI ON: OVERALL DOING WELL. FOLLOWED BY [facility] [id number], LOBITO HERNANDEZ CE RECENTLY WITH MEDS WHICH I COMMENDE D HER ON. SHE WILL CHECK IN WITH US IN ABOUT 6 MONTHS TIME TO ENSURE CONTINUE D MARY CE. REVIEWED LIPID PANEL FROM 2009, NORMAL. NEEDS ANNUAL PAPS, SHE WILL CONTACT [facility] OFFICE.; RECORDED 02/22/19 13 9:38AM BY NORRIS EUBANKS MA, DEANDRE ON/GRAEME cruz, [facility] 7 08:46:36 Disorder of sebaceou s gland [id number] Completed 201208/23/2013 RECORDED 02/22/19 13 9:38AM BY NORRIS EUBANKS MA, DEANDRE ON/GRAEME Teran, [facility] [address] [facility] [address], [place], [address] , [facility] 6 10:11:06 Chronic sinusiti s [id number] Completed 201209/15/2013 IMPRESSI ON: SXS X 2 DAYS, NO FEVERS. SUSPECT VIRAL IN ORIGIN. DISCUSSE D REST, HYDRATIO N, NASAL SALINE AND CS SPRAY, OTC ANALGESI CS. CALL FOR WORSENIN G OR IF SXS > 10 DAYS, WILL TX FOR BACTERIA L.; RECORDED 05/05/19 13 7:48AM BY ED ADAM I, JARREDATI ON/GRAEME Teran, [facility] [address] [facility] [address], [place], [address] , [facility] 6 10:11:06 Delay when starting to pass urine [id number] Completed 201209/15/2013 IMPRESSI ON: SUSPECT MILD DEHYDRAT ION, ADVISED RE PO FLUID RESUSCIT ATION. URINE CULTURE THROUGH [facility] STILL PENDING. ; RECORDED 05/05/19 13 7:48AM BY DEANDRE JOY ON/ADDEN LETY Teran, [facility] [address] [facility] [address], [facility] [place], [address] , [facility] 6 10:11:06 Acute bronchit is [id number] Completed 201209/15/2013 IMPRESSI ON: COMPLETE D Z PACK. EVAL YESTERDA Y IN ER, HAD NEG CXR. WITH INSP AND EXP WHEEZE ON EXAM TODAY. NEEDS TO START INHALER INSTRUCT ED. NO ROLE FOR FURTHER ABX TX.; RECORDED 05/05/19 13 7:48AM BY DEANDRE JOY ON/GRAEME Teran, [facility] [address] [facility] [address], [facility] [place], [address] , [facility] 6 10:11:06 Chronic sinusiti s [id number] Completed 201209/16/2013 IMPRESSI ON: SXS X 2 DAYS, NO FEVERS. SUSPECT VIRAL IN ORIGIN. DISCUSSE D REST, HYDRATIO N, NASAL SALINE AND CS SPRAY, OTC ANALGESI CS. CALL FOR WORSENIN G OR IF SXS > 10 DAYS, WILL TX FOR BACTERIA L.; RECORDED 05/05/19 13 7:48AM BY DEANDRE JOY ON/GRAEME Teran, [facility] [address] [facility] [address], [place], [address] , [facility] 6 10:11:06 Delay when starting to pass urine [id number] Completed 201209/16/2013 IMPRESSI ON: SUSPECT MILD DEHYDRAT ION, ADVISED RE PO FLUID RESUSCIT ATION. URINE CULTURE THROUGH [facility] STILL PENDING. ; RECORDED 05/05/19 13 7:48AM BY DEANDRE JOY ON/GRAEME Teran, [facility] [address] [facility] [address], [place], [address] , [facility] 6 10:11:06 Acute bronchit is [id number] Completed 201209/16/2013 IMPRESSI ON: COMPLETE D Z PACK. EVAL YESTERDA Y IN ER, HAD NEG CXR. WITH INSP AND EXP WHEEZE ON EXAM TODAY. NEEDS TO START INHALER INSTRUCT ED. NO ROLE FOR FURTHER ABX TX.; RECORDED 05/05/19 13 7:48AM BY DEANDRE JOY ON/GRAEME Teran, [facility] [address] [facility] [address], [place], [address] , [facility] 6 10:11:06 Chronic sinusiti s [id number] Completed 201208/23/2013 IMPRESSI ON: SXS X 2 DAYS, NO FEVERS. SUSPECT VIRAL IN ORIGIN. DISCUSSE D REST, HYDRATIO N, NASAL SALINE AND CS SPRAY, OTC ANALGESI CS. CALL FOR WORSENIN G OR IF SXS > 10 DAYS, WILL TX FOR BACTERIA L.; RECORDED 05/05/19 13 7:48AM BY DEANDRE JOY ON/GRAEME Teran, [facility] [address] [facility] [address], [place], [address] , [facility] 6 10:11:06 Delay when starting to pass urine [id number] Completed 201208/23/2013 IMPRESSI ON: SUSPECT MILD DEHYDRAT ION, ADVISED RE PO FLUID RESUSCIT ATION. URINE CULTURE THROUGH [facility] STILL PENDING. ; RECORDED 05/05/19 13 7:48AM BY DEANDRE JOY/GRAEME Teran, [facility] [address] [facility] [address], [place], [address] , [facility] 6 10:11:06 Acute bronchit is [id number] Completed 201208/23/2013 IMPRESSI ON: COMPLETE D Z PACK. EVAL YESTERDA Y IN ER, HAD NEG CXR. WITH INSP AND EXP WHEEZE ON EXAM TODAY. NEEDS TO START INHALER INSTRUCT ED. NO ROLE FOR FURTHER ABX TX.; RECORDED 05/05/19 13 7:48AM BY DEANDRE JOY/GRAEME Teran, [facility] [address] [address], [place], [address] , [facility] 6 10:11:06 Cough [id number] Completed 201209/15/2013 IMPRESSI ON: CLEAR LUNGS, NO FEVERS, SUSPECT PART OF MILD URI. TENDENCY TO WHEEZE WITH URIS PAST COUPLE OF YRS. [facility] ED TO USE ALBUTERO L MORE FREQ WITH SPACER. CALL ME IF WORSENIN G/PRN.; RECORDED 02/08/20 13 3:08PM BY NORRIS EUBANKS MA, DEANDRE MACK/GRAEME Teran, [facility] [address] [address], [place], [address] , [facility] 6 10:11:06 Hearing loss [id number] Completed 201209/15/2013 IMPRESSI ON: PROBABLY FROM EUSTACHI ON TUBE DYSFUNCT ION, POSSIBLE ALLERGIE S. SHE WAS INSTRUCT ED TO USE FLONASE AND SEE IF THAT HELPS.; RECORDED 02/08/20 13 3:08PM BY NORRIS EUBANKS MA, DEANDRE MACK/GRAEME Teran, [facility] [address] [address], [place], [address] , [facility] 6 10:11:06 Cough [id number] Completed 201209/16/2013 IMPRESSI ON: CLEAR LUNGS, NO FEVERS, SUSPECT PART OF MILD URI. TENDENCY TO WHEEZE WITH URIS PAST COUPLE OF YRS. [facility] ED TO USE ALBUTERO L MORE FREQ WITH SPACER. CALL ME IF WORSENIN G/PRN.; RECORDED 02/08/20 13 3:08PM BY NORRIS EUBANKS MA, DEANDRE MACK/GRAEME Teran, [facility] [address] [facility] [address], [place], [address] , [facility] 6 10:11:06 Hearing loss [id number] Completed 201209/16/2013 IMPRESSI ON: PROBABLY FROM EUSTACHI ON TUBE DYSFUNCT ION, POSSIBLE ALLERGIE S. SHE WAS INSTRUCT ED TO USE FLONASE AND SEE IF THAT HELPS.; RECORDED 02/08/20 13 3:08PM BY NORRIS EUBANKS MA, DEANDRE ON/GRAEME Teran, [facility] [address] [facility] [address], [place], [address] , [facility] 6 10:11:06 Cough [id number] Completed 201208/23/2013 IMPRESSI ON: CLEAR LUNGS, NO FEVERS, SUSPECT PART OF MILD URI. TENDENCY TO WHEEZE WITH URIS PAST COUPLE OF YRS. [facility] ED TO USE ALBUTERO L MORE FREQ WITH SPACER. CALL ME IF WORSENIN G/PRN.; RECORDED 02/08/20 13 3:08PM BY NORRIS EUBANKS MA, DEANDRE ON/GRAEME Teran, [facility] [address] [facility] [address], [place], [address] , [facility] 6 10:11:06 Hearing loss [id number] Completed 201208/23/2013 IMPRESSI ON: PROBABLY FROM EUSTACHI ON TUBE DYSFUNCT ION, POSSIBLE ALLERGIE S. SHE WAS INSTRUCT ED TO USE FLONASE AND SEE IF THAT HELPS.; RECORDED 02/08/20 13 3:08PM BY NORRIS EUBANKS MA, DEANDRE ON/GRAEME Teran, [facility] [facility] [address] [facility] [address], [place], [address] , [facility] 6 10:11:06 Follow-u p encounte r Completed 201309/15/2013 RECORDED 03/17/19 14 11:12AM BY NORRIS EUBANKS MA, DEANDRE ON/ADDEN DUM Jaren Teran, [facility] [address], [place], [address] , [facility] 6 10:11:07 Chronic disease of tonsils AND/OR adenoids [id number] Completed 201309/15/2013 IMPRESSI ON: LEAVE ALONE. SHE IS CONCERNE D. WILL HAVE HER SEEN ENT IN 4 WKS. IF NOT BETTER COULD CONSIDER REMOVAL; RECORDED 03/17/19 14 11:12AM BY NORRIS EUBANKS MA, DEANDRE ON/ADDEN DUM Jaren Teran, [facility] [address], [place], [address] , [facility] 6 10:11:06 Follow-u p encounte r Completed 201309/16/2013 RECORDED 03/17/19 14 11:12AM BY NORRIS EUBANKS MA, DEANDRE ON/ADDEN DUM Jaren Teran, [facility] [address] [facility] [address], [place], [address] , [facility] 6 10:11:07 Chronic disease of tonsils AND/OR adenoids [id number] Completed 201309/16/2013 IMPRESSI ON: LEAVE ALONE. SHE IS CONCERNE D. WILL HAVE HER SEEN ENT IN 4 WKS. IF NOT BETTER COULD CONSIDER REMOVAL; RECORDED 03/17/19 14 11:12AM BY NORRIS EUBANKS MA, DEANDRE ON/ADDEN DUM Jaren Teran, [facility] [address], [place], [address] , [facility] 6 10:11:06 Follow-u p encounte r Completed 201308/23/2013 RECORDED 03/17/19 14 11:12AM BY NORRIS EUBANKS MA, DEANDRE ON/ADDEN DUM Jaren Teran, [facility] [address] [facility] [address], [place], [address] , [facility] 6 10:11:07 Chronic disease of tonsils AND/OR adenoids 19137679 Completed 201308/23/2013 IMPRESSI ON: LEAVE ALONE. SHE IS [place]. WILL HAVE HER SEEN ENT IN 4 WKS. IF NOT BETTER COULD CONSIDER REMOVAL; RECORDED 03/17/19 14 11:12AM BY NORRIS EUBANKS MA, DEANDRE ON/ADDLAMAR Teran, [facility] [address] [facility] [address], [place], [address] , [facility] 6 10:11:06 Hemorrha ge of rectum and anus [id number] Completed 201308/23/2013 IMPRESSI ON: INTERMIT TENT, X 9 MONTHS, PT TO SEE GI(OUR OFFICE TO TUNG Nieves AND NOTIFY PT).; RECORDED 04/12/19 14 1:28PM BY DEANDRE JOY ON/GRAEME Teran, [facility] [address] [facility] [address], [place], [address] , [facility] 6 10:11:07 Diarrhea [id number] Completed 201309/15/2013 IMPRESSI ON: SEEING BLOOD; HAS AN APPT W/DR DURAND FOR FURTHER EVALUATI ON. GIVEN HER PRESERVE D TCELL COUNT AND UNDETECT ABLE VIRAL LOAD IT IS UNLIKELY THAT THIS IS RELATED TO HER HIV.; RECORDED 05/20/19 14 8:06AM BY LEOBARDO TARIQ MA, JARREDATI ON/GRAEME cruz, [facility] 7 08:46:57 Increase d frequenc y of urinatio n [id number] Completed 201309/15/2013 IMPRESSI ON: OSSIBLE UTI BUT WILL WAIT FOR THE CX BEFORE STARTING MEDS BECAUSE OF HER DIARRHEA .; RECORDED 05/20/19 14 8:06AM BY LEOBARDO TARIQ MA, ANNOTATI ON/GRAEME cruz, [facility] 7 08:46:26 Diarrhea [id number] Completed 201309/16/2013 IMPRESSI ON: SEEING BLOOD; HAS AN APPT W/DR DURAND FOR FURTHER EVALUATI ON. GIVEN HER PRESERVE D TCELL COUNT AND UNDETECT ABLE VIRAL LOAD IT IS UNLIKELY THAT THIS IS RELATED TO HER HIV.; RECORDED 05/20/19 14 8:06AM BY LEOBARDO TARIQ MA, DEANDRE ON/GRAEME Todd MA null, [facility] 7 08:46:57 Increase d frequenc y of urinatio n [id number] Completed 201309/16/2013 IMPRESSI ON: OSSIBLE UTI BUT WILL WAIT FOR THE CX BEFORE STARTING MEDS BECAUSE OF HER DIARRHEA .; RECORDED 05/20/19 14 8:06AM BY LEOBARDO TARIQ MA, DEANDRE ON/GRAEME Todd MA null, [facility] 7 08:46:26 Diarrhea [id number] Completed 201308/23/2013 IMPRESSI ON: SEEING BLOOD; HAS AN APPT W/DR DURAND FOR FURTHER EVALUATI ON. GIVEN HER PRESERVE D TCELL COUNT AND UNDETECT ABLE VIRAL LOAD IT IS UNLIKELY THAT THIS IS RELATED TO HER HIV.; RECORDED 05/20/19 14 8:06AM BY LEOBARDO TARIQ MA, DEANDRE ON/GRAEME cruz, [facility] 7 08:46:57 Patient status finding [id number] Completed 201308/23/2013 RECORDED 05/20/19 14 8:06AM BY LEOBARDO TARIQ MA, ANNOTATI ON/GRAEME cruz, [facility] 7 08:46:21 Increase d frequenc y of urinatio n [id number] Completed 201308/23/2013 IMPRESSI ON: OSSIBLE UTI BUT WILL WAIT FOR THE CX BEFORE STARTING MEDS BECAUSE OF HER DIARRHEA .; RECORDED 05/20/19 14 8:06AM BY LEOBARDO TARIQ MA, DEANDRE ON/GRAEME cruz, [facility] 07/28/201 7 08:46:26 Male pattern alopecia 67210173 Completed 201404/08/2022 CELIA Berry, [facility] 3 13:16:36 Traumati c alopecia 64698767 Active 2014 Not Available [facility] 3 04:29:09 Seborrhe ic dermatit is 81711921 Active 2014 Not Available [facility] 3 04:29:09 Hand eczema 936609833 Active 2014 Eczema to bilatera l hands likely due to cold weather and frequent handwash ing. Recommen d mometaso ne once lopez and frequent moisturi zing during the day. May use coconut oil or eucerin cream as needed. Not Available [facility] 3 04:29:09 Perianal pain 375582288 Active 2021 Not Available [facility] 3 04:29:09 Perianal abscess 71634519 Active 2021 Not Available [facility] 3 04:29:09 Dark stools 58708816 Active 2021 Not Available [facility] 3 04:29:09 Pain in throat 825881975 Completed 202104/08/2022 CELIA Berry, [facility] 3 13:16:27 Impaired fasting glycemia 148129622 Active 2021 Not Available [facility] 3 04:29:09 Degenera tion of cervical interver tebral disc 36633323 Active 2021 Not Available [facility] 3 04:29:09 Overacti ve urinary bladder 171382344 Active 2021 Not Available [facility] 3 04:29:09 Benign paroxysm al position al vertigo 664866547 Active 2021 Not Available [facility] 3 04:29:09 Contact dermatit is of eyelid 26945148 Active 2021 Not Available [facility] 3 04:29:09 Abdomina l pain 14348000 Active 2022 Not Available [facility] 3 04:29:09 Low back pain 862811213 Active 2022 Jaren Teran, [address] [address], [place], [address] , [facility] 3 12:00:03 Hyperlip idemia 49741186 Active 2022 Jaren Teran, [address] [address], [place], [address] , [facility] 3 12:03:14 Urinary tract infectio us disease 52107905 Active 2022 Jaren Teran, [address] [address], [place], [address] , [facility] 3 12:04:24 Candidia sis of mouth 39732548 Active 2022 Jaren Teran, [address] [address], [place], [address] , [facility] 3 12:11:38 Hematoch ezia 478616742 Active 2023 Jaren Teran, [address] [address], [place], [address] , [facility] 4 13:14:42 Anal fissure 43401385 Active 2023 Jaren Teran, [address] [address], [place], [address] , [facility] 4 13:33:12 Atopic dermatit is of eyelid 112213808 Active 2023 Jaren Teran, [address] [address], [place], [address] , [facility] 4 13:36:36 Cobalami n deficien cy 788856348 Active 2023 Jaren Teran, [facility] [address] [facility] [address], [place], [address] , [facility] 4 14:01:06 Easy bruising 374422199 Active 2023 Jaren Teran, [facility] [address] [facility] [address], [place], [address] , [facility] 4 14:06:55 Acute pharyngi tis 671541976 Active 2023 IMPRESSI ON: RAPID STREP NEG, WILL SEND OUT AND INFORM PT IF POS. ADVISED RE REST, FLUIDS, WARM SALT WATER GARGLES, TEA W/HONEY, OTC ANALGESI CS. CALL FOR WORSENIN G/PRN.; RECORDED 10/21/19 12 7:53AM BY NORRIS EUBANKS MA, ANNOTATI ON/GRAEME azar MA null, [facility] 4 09:29:57 Posterio r rhinorrh ea 71065579 Active 2023 Jaren Teran, [facility] [address] [facility] [address], [place], [address] , [facility] 4 09:41:54 Aphthous ulcer of mouth 732188760 Active 2023 Jaren Teran, [facility] [address] [address], [place], [address] , [facility] 4 09:57:05 Allergic rhinitis caused by pollen 82154998 Active 2024 Cooper Vicente MD [address] [address], [place], [address] , [facility] 5 12:34:52 Problem Notes None recorded. Procedures Surgical History Date Name Laterality Status Provider Name and Address Organization Details Recorded Time 09/18/19 23 Cardiovascular stress test completed Mare Nazario [facility] 09/30/2022 14:50:26 09/05/19 23 Most Recent Mammogram completed Mare Nazario [facility] 09/04/2022 09:11:40 07/12/19 22 operation on rectum completed Annabel Werner MA [facility] 11/15/2021 13:02:33 04/17/19 22 excision of perianal tissue completed Dyana Story RN [facility] 04/17/2021 09:57:22 09/16/19 20 Date of Last Pap Smear completed Mary Lou gunn MA [facility] 10/18/2019 13:07:07 04/10/19 17 Ultrasound breast limited completed Mary Lou gunn MA [facility] 10/08/2017 11:28:39 08/10/19 16 Mammogram one breast completed Mary Lou gunn MA [facility] 10/08/2017 11:28:04 06/19/19 16 Advanced Care Planning completed Carla Mcdowell [facility] 06/21/2015 10:53:04 08/25/19 14 Date of Last Colonoscopy completed Mary Lou gunn MA [facility] 10/14/2018 10:11:02 08/25/19 14 Colonoscopy completed Mary Lou gunn MA [facility] 10/14/2018 10:10:57 No surg proc w/in 30 days completed Mary Lou gunn MA [facility] 10/08/2017 11:26:24 Mammogram both breasts completed Amie Corbin [facility] 09/04/2022 09:08:38 Imaging Results None recorded. Procedure Notes None recorded. Medical Equipment None Reported. Allergies Allergen ID Allergen Name Allergen Category Reaction Reaction Severity Criticality Documentation Date Start Date Code Code System Note Provider Name and Address Organization Details Recorded Time 50935 oxybutyni n medicatio n other Not available Not available 07/29/2018 06817 RxNorm dry mouth CELIA Farooq [facility] 9 13:54:41 Medications Name Sig Start Date Stop Date Status Note LastModified by Organization Details LastModified Time Prescript ion - Prior Authoriza tion Request active Not Available Not Available Not Available tolterodi ne ER 2 mg capsule,e xtended release 24 hr TAKE 1 CAPSULE BY MOUTH DAILY 04/08 completed Not Available Not Available Not Available cyclobenz aprine 10 mg tablet TAKE 1 TABLET BY MOUTH AT BEDTIME FOR 7 DAYS NEEDED FOR MUSCLE SPASM 04/08 completed Not Available Not Available Not Available azithromy sunny 250 mg capsule DIRECTED 02/27 completed RECORDED 03/08/19 13 8:43AM BY ROSSANA YAN PA-C, [facility] CTIVATIO N; Not Available Not Available Not Available terconazo le 0.4 % vaginal cream QHS / HS 01/01 completed RECORDED 03/23/19 10 11:53AM BY ROSSANA YAN PA-C, MEDICATI ON AUTO-GABRIELLA CTIVATIO N; Not Available Not Available Not Available nystatin 100,000 unit/mL oral suspensio n SHAKE LIQUID AND TAKE 5 ML BY MOUTH FOUR TIMES DAILY FOR 10 DAYS DIRECTED FOR THRUSH 12/02 completed Not Available Not Available Not Available ritonavir 100 mg capsule BID 01/19 completed RECORDED 01/20/20 12 8:40AM BY NORRIS EUBANKS MA, OFFICE VISIT; Not Available Not Available Not Available ketoconaz ole 2 % shampoo active Not Available Not Available Not Available cetirizin e 10 mg tablet Take 1 tablet every day by oral route as directed for 30 days. 05/11 completed Not Available Not Available Not Available oxybutyni n chloride ER 10 mg tablet,ex tended release 24 hr Take 1 tablet every day by oral route as directed for 30 days. 03/26 completed Not Available Not Available Not Available azithromy sunny 250 mg tablet TAKE 2 TABLETS (500 MG) BY ORAL ROUTE ONCE DAILY FOR 1 DAY THEN 1 TABLET (250 MG) BY ORAL ROUTE ONCE DAILY FOR 4 DAYS 03/30 completed Not Available Not Available Not Available benzonata te 200 mg capsule 3 TIMES A DAY 03/04 completed RECORDED 03/08/19 13 8:43AM BY ROSSANA YAN PA-C, MEDICATI ON AUTO-GABRIELLA CTIVATIO N; Not Available Not Available Not Available tolterodi ne ER 4 mg capsule,e xtended release 24 hr TAKE 1 CAPSULE BY MOUTH EVERY DAY DIRECTED 11/18 completed Not Available Not Available Not Available hydrocodo ne 5 mg-acetam inophen 325 mg tablet Take 1 tablet every 6 hours by oral route as directed . 10/14 completed Not Available Not Available Not Available sucralfat e 1 gram tablet TAKE 1 TABLET BY MOUTH THREE TIMES DAILY 05/16 completed Not Available Not Available Not Available prednison e 20 mg tablet TAKE 2 TABLETS BY MOUTH DAILY FOR 5 DAYS 04/08 completed Not Available Not Available Not Available AeroChamb er Plus-Medi um Mask DIRECTED 05/25 completed RECORDED 06/02/19 13 12:51PM BY ED ADAM I, MEDICATI ON AUTO-GABRIELLA CTIVATIO N; Not Available Not Available Not Available sumatript an 50 mg tablet Take 1 tablet as needed by oral route for 5 days. 11/18 completed Not Available Not Available Not Available meclizine 12.5 mg tablet TAKE 1 TABLET BY MOUTH EVERY DAY FOR 10 DAYS NEEDED FOR DIZZINES S active Not Available Not Available No t Available metronida zole 500 mg tablet TAKE 1 TABLET BY MOUTH THREE TIMES DAILY FOR 5 DAYS 07/10 completed Not Available Not Available Not Available acetamino phen 300 mg-codein e 30 mg tablet TAKE 1 TABLET BY MOUTH EVERY 6 HOURS FOR 7 DAYS DIRECTED 07/10 completed Not Available Not Available Not Available tretinoin 0.05 % topical cream 09/05 completed Not Available Not Available Not Available sulfameth oxazole 800 mg-trimet hoprim 160 mg tablet Take 1 tablet every 12 hours by oral route as directed for 7 days. 10/14 completed Not Available Not Available Not Available omeprazol e 40 mg capsule,d elayed release TAKE 1 CAPSULE BY MOUTH DAILY 05/16 completed Not Available Not Available Not Available Viread 300 mg tablet 01/19 completed RECORDED 01/20/20 12 8:40AM BY NORRIS EUBANKS MA, OFFICE VISIT; Not Available Not Available Not Available Zofran 4 mg tablet Take 1 tablet every 8 hours by oral route as directed . 10/14 completed Not Available Not Available Not Available Fluticaso ne Propionat e (Inhal) 50 mcg/BLIST inhl powd DAILY IN EACH NOSTRIL 2012 active RECORDED 05/05/19 13 7:48AM BY ED ADAM I, OFFICE VISIT; Not Available Not Available Not Available triamcino lone acetonide 0.1 % dental paste Take 1 applicat ion 3 times a day by dental route as directed for 7 days. 2023 active Not Available Not Available Not Avai lable triamcino lone acetonide 0.025 % topical cream APPLY THIN LAYER TOPICALL Y TO THE AFFECTED AREA TWICE DAILY NEEDED active Not Available Not Available No t Available meclizine 25 mg tablet TAKE 1 TABLET BY MOUTH DAILY NEEDED FOR DIZZINES S 07/10 completed Not Available Not Available Not Available cephalexi n 500 mg capsule Q 12 HRS 06/12 completed RECORDED 06/16/19 09 4:16PM BY ROSSANA YAN, NITA, [facility] AUTO-GABRIELLA CTIVATIO N; Not Available Not Available Not Available erythromy sunny 5 mg/gram (0.5 %) eye ointment APPLY 1 CM RIBBON INTO THE LOWER CONJUNCT IVAL SAC(S) IN THE AFFECTED EYE(S) BY OPHTHALM IC ROUTE 3 TIMES PER DAY 10/14 completed Not Available Not Available Not Available tacrolimu s 0.1 % topical ointment APPLY THIN LAYER TOPICALL Y TO THE AFFECTED AREA TWICE DAILY. RUB IN GENTLY AND COMPLETE LY active Not Available Not Available No t Available oseltamiv ir 75 mg capsule 03/23 completed Not Available Not Available Not Available ibuprofen 400 mg tablet Take by oral route for 6 days. 11/13 completed Not Available Not Available Not Available docusate sodium 100 mg capsule TAKE 1 CAPSULE BY MOUTH TWICE DAILY NEEDED FOR CONSTIPA TION 09/23 completed Not Available Not Available Not Available oxybutyni n chloride ER 5 mg tablet,ex tended release 24 hr Take 1 tablet every day by oral route as directed for 30 days. 07/29 completed Not Available Not Available Not Available omeprazol e 20 mg capsule,d elayed release TAKE 1 CAPSULE BY MOUTH EVERY DAY DIRECTED active Not Available Not Available No t Available mometason e 0.1 % topical ointment APPLY A THIN LAYER TO THE AFFECTED AREA(S) BY TOPICAL ROUTE ONCE DAILY x 7 dasy on, 7 days off active PRN Not Available Not Available No t Available ibuprofen 600 mg tablet TAKE 1 TABLET BY MOUTH THREE TIMES DAILY WITH MEALS FOR PAIN active Not Available Not Available No t Available levofloxa sunny 750 mg tablet TAKE 1 TABLET BY MOUTH EVERY DAY 07/10 completed Not Available Not Available Not Available oxybutyni n chloride 5 mg tablet Take 0.5 tablets twice a day by oral route as directed for 30 days. 10/14 completed Not Available Not Available Not Available ondansetr on 4 mg disintegr ating tablet DISSOLVE 1 TABLET ON THE TONGUE DAILY NEEDED FOR NAUSEA OR VOMITING 11/15 completed Not Available Not Available Not Available fluticaso ne propionat e 50 mcg/actua tion nasal spray,leticia pension SHAKE LIQUID AND USE 2 SPRAYS IN EACH NOSTRIL EVERY DAY NEEDED active Not Available Not Available No t Available sertralin e 50 mg tablet DAILY 12/10 completed RECORDED 12/11/19 11 9:39AM BY MARY LOU DIALLO MA, OFFICE VISIT; Not Available Not Available Not Available loratadin e 10 mg tablet TAKE 1 TABLET BY MOUTH EVERY DAY active Not Available Not Available No t Available naproxen 500 mg tablet TAKE 1 TABLET BY MOUTH TWICE DAILY FOR 7 DAYS NEEDED FOR PAIN 04/08 completed Not Available Not Available Not Available mometason e 0.1 % topical cream APPLY A THIN LAYER TO THE AFFECTED AREA(S) BY TOPICAL ROUTE ONCE DAILY 09/05 completed Not Available Not Available Not Available diazepam 5 mg tablet TAKE 1 TABLET BY MOUTH EVERY 8 HOURS NEEDED FOR SPASM. DO NOT TAKE THE SAME TIME OXYCODON E 09/23 completed Not Available Not Available Not Available metoclopr amide 10 mg tablet 1 TAB 30 MINUTES BEFORE EVENING MEDICATI ONS 12/13 completed RECORDED 12/14/19 13 11:40AM BY SUNSHINE GRESHAM MD, ANNOTATI ON/ADDEN DUM;MAY TAKE ADDITION AL TABLET 30 MIN BEFORE MEALS PRN. Not Available Not Available Not Available amoxicill in 875 mg-potass ium clavulana te 125 mg tablet 09/05 completed Not Available Not Available Not Available amoxicill in 500 mg-potass ium clavulana te 125 mg tablet TAKE 1 TABLET BY MOUTH EVERY 12 HOURS FOR 7 DAYS 07/10 completed Not Available Not Available Not Available Ventolin HFA 90 mcg/actua tion aerosol inhaler INHALE 2 PUFFS BY MOUTH EVERY 4 TO 6 HOURS NEEDED FOR COUGH OR WHEEZE 12/20 completed Not Available Not Available Not Available oxycodone 5 mg tablet TAKE 1 TABLET BY MOUTH EVERY 6 HOURS FOR 7 DAYS NEEDED FOR MODERATE PAIN 09/23 completed Not Available Not Available Not Available clindamyc in 1 % lotion Apply 1 applicat ion as needed by topical route as directed for 14 days. 03/23 completed Not Available Not Available Not Available albuterol (refill) 90 mcg/actua tion aerosol inhaler Q 4-6 HRS PRN COUGH/WH EEZE 2013 active RECORDED 06/03/19 14 1:59PM BY PAT HUYNH PA-C, REFILL REQUEST; Not Available Not Available Not Available Truvada 200 mg-300 mg tablet Take 1 tablet every day by oral route as directed for 30 days. 10/08 completed Not Available Not Available Not Available Epzicom 01/19 completed RECORDED 01/20/20 12 8:40AM BY NORRIS EUBANKS MA, OFFICE VISIT; Not Available Not Available Not Available sodium chloride 0.9 % nasal spray aerosol DIRECTED 04/25 completed RECORDED 05/01/19 13 12:55PM BY ROSSANA YAN PA-C, MEDICATI ON AUTO-GABRIELLA CTIVATIO N; Not Available Not Available Not Available atazanavi r 300 mg capsule QD 01/19 completed RECORDED 01/20/20 12 8:40AM BY NORRIS EBUANKS MA, OFFICE VISIT; Not Available Not Available Not Available Triple Paste 12.8 % topical ointment Apply 1 applicat ion 3 times a day by topical route as directed for 5 days. 12/02 completed Not Available Not Available Not Available Isentress 400 mg tablet TAKE 1 TABLET BY MOUTH TWICE DAILY active Not Available Not Available No t Available Voltaren 1 % topical gel 03/23 completed Not Available Not Available Not Available Toviaz 4 mg tablet,ex tended release Take 1 tablet every day by oral route for 30 days. 10/17 completed for overacti ve bladder; changed to Myrbetri q Not Available Not Available Not Available Intelence 200 mg tablet TAKE 1 TABLET BY MOUTH TWICE DAILY. active Not Available Not Available No t Available Myrbetriq 25 mg tablet,ex tended release TAKE 1 TABLET BY MOUTH EVERY NIGHT AT BEDTIME 12/02 completed Not Available Not Available Not Available Descovy 200 mg-25 mg tablet TAKE 1 TABLET BY MOUTH DAILY active Not Available Not Available No t Available Eucrisa 2 % topical ointment APPLY TOPICALL Y TO THE AFFECTED AREA TWICE DAILY DIRECTED active prn Not Available Not Available No t Available BinaxNOW COVID-19 Ag Self Test kit TEST DIRECTED TODAY active Not Available Not Available No t Available Vitals Date Recorded Body height Body mass index (BMI) Body weight Heart rate Oxygen saturation Oxygen saturation in Arterial blood by Pulse oximetry Body temperature Systolic And Diastolic Provider Name and Address Organization Details Last Updated DateTime 4 150.5 cm 20 kg/m2 92674.2 4 g 67 /min 96 % 96 % 98.4 [degF] 98/57 mm[Hg] [facility] 4 13:08:07 Date Recorded Body height Body mass index (BMI) Body weight Heart rate Oxygen saturation Oxygen saturation in Arterial blood by Pulse oximetry Body temperature Systolic And Diastolic Provider Name and Address Organization Details Last Updated DateTime 5 150.5 cm 19.7 kg/m2 08604.7 5 g 91 /min 98 % 98 % 98.3 [degF] 119/80 mm[Hg] [facility] 5 11:22:00 Date Recorded Systolic And Diastolic Provider Name and Address Organization Details Last Updated DateTime 12/03/2023 100/60 mm[Hg] Jaren Teran, [facility] [address] [address], [place], [address] 12/03/2023 14:08:05 Date Recorded Body height Body mass index (BMI) Body weight Heart rate Oxygen saturation Oxygen saturation in Arterial blood by Pulse oximetry Body temperature Systolic And Diastolic Provider Name and Address Organization Details Last Updated DateTime 4 150.5 cm 20.2 kg/m2 19465.8 3 g 97 /min 100 % 100 % 98.2 [degF] 130/92 mm[Hg] Lanie Somers [facility] 4 13:16:27 Date Recorded Body height Body mass index (BMI) Body weight Heart rate Oxygen saturation Oxygen saturation in Arterial blood by Pulse oximetry Body temperature Systolic And Diastolic Provider Name and Address Organization Details Last Updated DateTime 4 150.5 cm 20 kg/m2 35133.2 4 g 65 /min 99 % 99 % 98.1 [degF] 100/63 mm[Hg] Shoshana olmedo [facility] 4 09:36:44 Social History Question Answer Notes LastModified by Organizat ion Details LastModified Time Tobacco Smoking Status Never Smoker Ed cruz, [facility] 11/07/2013 09:10:55 Do You Have An Advance Directive? Yes HCP Information not available 11/13/2020 Is Blood Transfusion Acceptable In An Emergency? No Information not available 06/19/2015 What Is Your Level Of Caffeine Consumption? Moderate 2 Cup A Day Of Coffee Information not available 11/18/2022 How Much Tobacco Do You Chew? None Information not available 10/08/2017 In The 14 Days Before Symptom Onset, Have You Had Close Contact With A Laboratory-confir med COVID-19 While That Case Was Ill? No Information not available 11/13/2020 In The 14 Days Before Symptom Onset, Have You Had Close Contact With A Person Who Is Under Investigation For COVID-19 While That Person Was Ill? No Information not available 11/13/2020 Have You Been To An Area Known To Be High Risk For COVID-19? No Information not available 11/13/2020 What Type Of Diet Are You Following? REGULAR Information not available 06/15/2014 Which Illicit Or Recreational Drugs Have You Used? None Information not available 09/05/2016 Live Alone Or With Others? Alone Information not available 11/13/2020 Do You Take Precautions To Prevent Distracted Driving? Yes [email or web address] Information not available 06/19/2015 How Often Do You Need To Have Someone Help You When You Read Instructions, Pamphlets, Or Other Written Material From Your Doctor Or Pharmacy? Never Information not available 11/13/2020 Have You Served In The ? No Information not available 09/05/2016 Have You Or Anyone In Your Household Had Any Of The Following Symptoms In The Last 14 Days: Sore Throat, Cough, Chills, Body Aches For Unknown Reasons, Shortness Of Breath For Unknown Reasons, Loss Of Smell, Loss Of Taste, Fever At Or Greater Than 100 Degrees Fahrenheit? No Information not available 10/18/2019 Are You Or Anyone In Your Household A Health Care Provider Or Emergency Responder? No Information not available 10/18/2019 To The Best Of Your Knowledge Have You Been In Close Proximity To Any Individual Who Tested Positive For COVID-19? No Information not available 10/18/2019 *AWV ONLY* Are You Presently Prescribed Opioid Medication By PCP Or Specialist? If YES -Provider Assess The Benefit For Other, Non-opioid Pain Therapies Instead, Even If The Patient Does Not Have OUD But Is Possibly At Risk. No Information not available 10/18/2019 Have You Recently Traveled To A COVID-19 High Risk Area Or Gathering In The Last 10 Days? No Information not available 11/13/2020 What Was The Date Of Your Most Recent Tobacco Screening? 12/03/2023 [email or web address] Information not available 12/03/2023 How Many Children Do You Have? 0 Information not available 11/07/2013 What Is Your Relationship Status? Single Information not available 11/13/2020 Seat Belts Used Routinely Yes Information not available 11/13/2020 Are You Sexually Active? No Information not available 09/05/2016 Smoke Alarm In Home Yes Information not available 11/13/2020 At What Age Did You Start Smoking Tobacco? 0 Information not available 10/08/2017 Are You Passively Exposed To Smoke? No Information no t available 10/08/2017 How Much Tobacco Do You Smoke? No Information not available 09/05/2016 Do You Use Sunscreen Routinely? No Information not available 10/18/2019 How Many Years Have You Smoked Tobacco? 0 Information not available 10/08/2017 Sex: Unknown Functional Status Question Answer Note LastModified by Organizat ion Details LastModified Time Do you use any illicit or recreational drugs? No Information not available 11/13/2020 Do you or have you ever used any other forms of tobacco or nicotine? No Information not available 11/13/2020 What is your level of alcohol consumption? None Information not available 11/07/2013 Do you or have you ever used smokeless tobacco? Never used smokeless tobacco Information not available 10/14/2018 Are you currently employed? No Information not available 11/07/2013 Are you able to walk independently without assistance or assistive devices? YESWOREST Information not available 11/13/2020 Are you able to care for yourself independently? Yes [email or web address] Information not available 06/19/2015 What is your occupation? on disability Information not available 02/16/2020 Do you or have you ever used e-cigarettes or vape? Never used electronic cigarettes Information not available 11/13/2020 What is your exercise level? Moderate walking Information not available 11/18/2022 Mental Status None recorded. Family History Relationship Description Onset Age of this Age Resolved Age Notes LastModified by Organization Details LastModified Time Mother Human immunodefici ency virus infection [email or web address] Not available 2020 12:53:04 Mother Cerebrovascu lar accident 15 48 x3 [email or web address] Not available 07/29/2018 13:57:52 Father Human immunodefici ency virus infection [email or web address] Not available 2020 12:53:04 Unspecified Relation Hypertensive disorder Matern al side of family [email or web address] Not available 12/03/2023 13:54:05 Unspecified Relation Hyperlipidem ia Mother 's side [email or web address] Not available 12/03/2023 13:54:34 Notes:No FH of colon or blade st cancer Medical History Condition Response AIDS/HIV Y Gynecological History Statement/Question Response Abnormal Pap N Flow Moderate Date of Last Colonoscopy 08/24/2013 Sexually Active? N Menses Monthly Y Duration of Flow (days) 5 Date of Last Pap Smear 09/16/2019 Age at Menarche 12 Current Control Method None Most Recent Mammogram 09/04/2022 LMP Approximate Obstetrics History GPAL:G 0 P 0 0 0 0 Immunizations Vaccine Type Date Status Note Provider Nam e and Address Organization Details Recorded Time Tdap 8 completed Katelyn Madrid null, [facility] 11/18/2022 10:44:57 meningococcal ACWY, unspecified formulation 8 completed Katelyn Madrid null, [facility] 11/18/2022 10:44:57 Hep B, adult 3 completed Katelyn Madrid null, [facility] 11/18/2022 10:44:57 Hep B, adult 3 completed Katelyn Madrid null, [facility] 11/18/2022 10:44:57 Hep B, adult 3 completed Katelyn Madrid null, [facility] 11/18/2022 10:44:57 meningococcal C conjugate 8 completed Katelyn Madrid null, [facility] 11/18/2022 10:44:57 pneumococcal polysaccharide PPV23 2 completed Katelyn Madrdi null, [facility] 11/18/2022 10:44:57 Pneumococcal conjugate PCV 13 3 completed Katelyn Madrid null, [facility] 11/18/2022 10:44:57 Influenza, split virus, quadrivalent, PF 5 completed Not Available [facility] 02/26/[facility] 02:22:01 COVID-19, mRNA, LNP-S, PF, 30 mcg/0.3 mL dose 1 completed Katelyn Madrid null, [facility] 11/18/2022 10:44:57 COVID-19 vaccine, vector-nr, rS-Ad26, PF, 0.5 mL 1 completed Katelyn Madrid null, [facility] 11/18/2022 10:44:57 pneumococcal polysaccharide PPV23 3 completed Katelyn Madrid null, [facility] 11/18/2022 10:44:57 Influenza, MDCK, quadrivalent, PF 2 completed Katelyn Madrid null, [facility] 11/18/2022 10:44:57 COVID-19, mRNA, LNP-S, bivalent, PF, 30 mcg/0.3 mL dose 2 completed Katelyn Madrid null, [facility] 11/18/2022 10:44:57 COVID-19, mRNA, LNP-S, PF, ting-sucrose, 30 mcg/0.3 mL 3 completed Katelyn Madrid null, [facility] 11/18/2022 10:44:57 Influenza, MDCK, quadrivalent, PF 3 completed Lindsay Caporale, [employer] null, [facility] 03/23/2023 14:00:28 Pneumococcal conjugate PCV20, polysaccharide [id number] conjugate, adjuvant, PF 3 completed Lindsay Caporale, [employer] null, [facility] 03/23/2023 14:00:28 COVID-19, mRNA, LNP-S, PF, ting-sucrose, 30 mcg/0.3 mL 4 completed CELIA White, [facility] 12/16/2023 09:37:01 Influenza, MDCK, trivalent, PF 4 completed CELIA White, [facility] 12/16/2023 09:37:01 Hep B, adult 7 completed Katelyn Madrid null, [facility] 11/18/2022 10:44:57 Hep A, adult 8 completed Katelyn Madrid null, [facility] 11/18/2022 10:44:57 Hep B, adult 8 completed Katelyn Madrid null, [facility] 11/18/2022 10:44:57 Influenza, split virus, trivalent, preservative 8 completed Katelyn Madrid null, [facility] 11/18/2022 10:44:57 Tdap 8 completed Katelyn Madrid null, [facility] 11/18/2022 10:44:57 pneumococcal polysaccharide PPV23 9 completed Katelyn Madrid null, [facility] 11/18/2022 10:44:57 Influenza, split virus, trivalent, preservative 0 completed Katelyn Madrid null, [facility] 11/18/2022 10:44:57 Influenza, split virus, trivalent, preservative 0 completed Katelyn Madrid null, [facility] 11/18/2022 10:44:57 Hep B, adult 0 completed Katelyn Madrid null, [facility] 11/18/2022 10:44:57 Hep B, adult 1 completed Katelyn Madrid null, [facility] 11/18/2022 10:44:57 Hep B, adult 1 completed Katelyn Madrid null, [facility] 11/18/2022 10:44:57 MMR 1 completed Katelyn Madrid null, [facility] 11/18/2022 10:44:57 Influenza, split virus, trivalent, preservative 1 completed Katelyn Madrid null, [facility] 11/18/2022 10:44:57 Hep B, adult 2 completed Katelyn Madrid null, [facility] 11/18/2022 10:44:57 MMR 2 completed Katelyn Madrid null, [facility] 11/18/2022 10:44:57 varicella 2 completed Katelyn Madrid null, [facility] 11/18/2022 10:44:57 Influenza, split virus, trivalent, preservative 2 completed Katelyn Madrid null, [facility] 11/18/2022 10:44:57 Influenza, split virus, trivalent, preservative 3 completed Katelyn Madrid null, [facility] 11/18/2022 10:44:57 Influenza, split virus, trivalent, preservative 3 completed Katelyn Madrid null, [facility] 11/18/2022 10:44:57 Influenza, split virus, quadrivalent, PF 7 completed Not Available [facility] 02/26/2019 02:22:11 Influenza, split virus, trivalent, PF 4 completed Not Available [facility] 02/26/2019 02:21:57 Influenza, split virus, quadrivalent, PF 8 completed Not Available [facility] 02/26/2019 02:22:21 Influenza, split virus, quadrivalent, PF 9 completed Not Available [facility] 02/26/2019 02:22:10 Influenza, split virus, quadrivalent, PF 0 completed Jaren Teran [facility] [address], [address], [facility] 10/18/2019 13:36:23 Influenza, split virus, quadrivalent, PF 1 completed CELIA Rea, [facility] 11/13/2020 16:25:15 Past Encounters Encounter ID Performer Location Encounter Start Date Encounter Closed Date Diagnosis/Indication Diagnosis SNOMED-CT Code Diagnosis ICD10 Code Diagnosis IMO Codes Diagnosis Note [id number] [address] [place] [address] 01/14/2011 00:00:00 [id number] [facility] [address] [place] [address] 06/26/2011 00:00:00 [id number] [facility] [address] [place] [address] 07/22/2011 00:00:00 [id number] [facility] [address] [facility] [address] [place] [address] 09/09/2011 00:00:00 [id number] [facility] [facility] [address] [facility] [address] [facility] [address] [place] [address] 10/21/2011 00:00:00 [id number] [facility] [facility] [address] [facility],[address] [place] [address] 01/20/2012 00:00:00 [id number] [facility] [facility] [address] [facility],[address] [place] [address] 02/23/2012 00:00:00 [id number] [facility] [facility] [address] [facility] [address] [place] [address] 03/08/2012 00:00:00 [id number] [facility] [facility] [address] [facility] [address] [place] [address] 03/26/2012 00:00:00 [id number] [facility] [facility] [address] [facility] [address] [place] [address] 05/04/2012 00:00:00 [id number] [facility] [address] [place] [address] 12/13/2012 00:00:00 [id number] [facility] [facility] [address] [facility] [address] [place] [address] 02/07/2013 00:00:00 [id number] [facility] [facility] [address] [facility] [address] [place] [address] 03/17/2013 00:00:00 [id number] [facility] [address] [place] [address] 04/26/2013 00:00:00 [id number] [facility] [facility] [address] [place] [address] 05/19/2013 00:00:00 [id number] [facility] [facility] [address] [place] [address] 05/14/2006 00:00:00 [id number] [facility] [facility] [address] [place] [address] 07/15/2006 00:00:00 [id number] [facility] [facility] [address] [place] [address] 11/24/2007 00:00:00 [id number] [address] [address] [place] [address] 04/05/2008 00:00:00 [id number] [facility] [facility] [address] [place] [address] 06/05/2008 00:00:00 [id number] [facility] [facility] [address] [facility] [address] [place] [address] 06/08/2008 00:00:00 [id number] [facility] [facility] [address] [place] [address] 07/13/2008 00:00:00 [id number] [facility] [facility] [address] [place] [address] 11/21/2008 00:00:00 [id number] [facility] [address] [place] [address] 12/25/2008 00:00:00 [id number] [facility] [facility] [address] [place] [address] 07/19/2009 00:00:00 [id number] [facility] [facility] [address] [place], [place] [address] 12/25/2009 00:00:00 [id number] [facility] [facility]ce [address] [facility],[address] [place], [place] [address] 03/26/2010 00:00:00 [id number] [facility] [facility]ce [address] [facility],[address] [place], [place] [address] 07/02/2010 00:00:00 [id number] [facility] [facility]ce [address] [facility],[address] [place], [place] [address] 10/11/2010 00:00:00 [id number] [facility] [facility] [address] [place] [address],[address] [place], [place] [address] 12/10/2010 00:00:00 [id number] Pat Huynh [facility] Main Office [address] [address] [place], [place] [address] 11/07/2013 08:58:56 11/07/2013 09:32:56 Human immunodeficiency virus infection [id number] doing great, tolerating and compliant medication , undetectab le HIV RNA and CD4 count of 570 Needs infl uenza immunization 691157756 Abdominal pain 14904866 re solved, RTC/ER if abdominal pain reoccurs [id number] ASAEL Urbina Main Office [address] [address] [place], [place] [address] 02/28/2014 08:41:56 02/28/2014 09:21:42 Knee pain 55766633 Pain of elbow region 19558688 [id number] Jaren Teran [facility] Main Office [address] [address] [place], [place] [address] 05/25/2014 09:02:57 05/25/2014 09:57:21 Dysuria 11788088 Human immunodeficiency virus infection 21176302 Stable, followed by ID, last viral load undectable , taking her meds daily. Urinary tr act infectious disease 09811896 Urine dip shows small leuks trace protein, trace ketones, will treat for UTI with Bactrim. Upper resp iratory infection 10318484 Hx HIV with undectable viral load a few months ago, she has had cough/ congestion symptoms x 1 month. She also presents with dark urine/ and positive urine dip. Will treat with Bactrim as this will treat lung infection empiricall y as well as UTI. Flonase daily for help with congestion . [id number] Jaren Teran [facility] Main Office [address] [place] [address] 06/15/2014 12:35:18 06/15/2014 13:43:02 Adult health examination 178582410 Will update immunizati on status and screen based on risk factors. Regular dental care, periodic eye examinatio ns, and safety measures advised. Distracted driving discussed. Human immunodeficiency virus infection 00238350 Stable, followed by [facility]- Dr. Kang, (last viral load undectable with high CD4 count 04/04/14), taking her meds daily. Thyroid di sorder screening 216669822 Hyperlipid emia screening 311448782 Thoracic back pain 979507371 C/o thoracic back pain over a vertebrae- which she cannot pinpoint today only when touching it, no pain with lifting or sitting, lying flat or movement, it has been going on for a year so she would like an XR. [id number] Jaren Teran [facility] Main Office [facility] [address] [place] [address] 11/15/2014 13:05:36 11/15/2014 15:46:53 Needs influenza immunization 893765391 Z23 [id number] Jaren Teran [facility] Main Office [facility] [address] [place] [address] 12/05/2014 09:10:48 12/05/2014 09:44:51 Human immunodeficiency virus infection 90885534 B20 Stable, followed by KATIE Kang, (last viral load undectable with high CD4 count 10/20/14), taking her meds daily. She did get her flu vaccine this year. Allergic rhinitis 723507 04 J30.9 She will try flonase daily. Contact dermatitis 06869 004 L25.9 Eczema to bilateral hands likely due to cold weather and frequent handwashin g. Recommend mometasone once lopez and frequent moisturizi ng during the day. May use coconut oil or eucerin cream as needed. [id number] Jaren Teran [facility] Main Office [address] [address] [place] [address] 03/02/2015 14:22:13 03/02/2015 15:15:46 Dysuria 97444771 R30.0 Increased frequency of urination 175029656 R35.0 Patient c/o frequency x 1 year, will refer to urology and send urine for culture, otherwise stay well hydrated. [id number] Oneil Bowie PA-C Main Office [address] [address] [place] [address] 06/05/2015 15:29:44 06/05/2015 16:23:46 Diarrhea 78609069 R19.7 Nausea 383346550 R11.0 Dizziness 105187994 R42 [id number] Jaren Teran [facility] Main Office [address] [address] [place] [address] 06/19/2015 09:46:24 06/19/2015 10:26:03 Adult health examination 950882209 Z00.00 Will update immunizati on status and screen based on risk factors. Regular dental care, periodic eye examinatio ns, and safety measures advised. Distracted driving discussed. She will schedule pap with Dr. Merlin rajput rective discussed with patient 973072913 Z71.89 Human immunodeficiency virus infection 78226161 B20 Stable, followed by ID- Dr. Kang, (last viral load undectable with high CD4 count), taking her meds daily. Asthma 569945954 J45.90 9 [id number] Jaren Teran [facility] Main Office [address] [address] [place] [address] 04/15/2016 08:24:01 04/15/2016 09:05:50 Dizziness 969488613 R42 Will check bloodwork, she had ID f/u tomorrow. Recommend she increase fluid intake, well balanced meals 3x/daily with snacks. Call/ return for worsening Fatigue 62608971 R53.83 Family his tory of disorder 950926272 Z82.8 [id number] Jaren Teran [facility] Main Office [address] [address] [place] [address] 06/06/2016 14:14:13 06/06/2016 14:55:00 Allergic rhinitis 10560364 J30.9 Suspect sx are due to PND/ allergies, zyrtec daily as directed, flonase daily as directed, takes 3-5 days to fully kick in. If fever, worsening sx please call/ return. Posterior rhinorrhea 758 25006 R09.82 [id number] Jaren Teran [facility] Main Office [address] [place] [address] 09/05/2016 08:40:37 09/05/2016 09:35:47 Adult health examination 887685632 Z00.00 Will update immunizati on status and screen based on risk factors. Regular dental care, periodic eye examinatio ns, and safety measures advised. Distracted driving discussed. She will schedule pap with Dr. Boyer Screening for malignant neoplasm of cervix 987670073 Z12.4 Fatigue 23984370 R53.83 Asthma 245579292 J45.90 9 Exposure t o sexually transmissible disorder 355532276 Z20.2 Urgent natalie sharon to urinate 89671864 R39.15 HIV detected 270258288 Z 21 congenital ly acquired, followed by ID, undetectab le viral load and high CD4 count [id number] Sunshine Guzman MD Main Office [address] [address] 10/21/2016 13:18:20 10/21/2016 14:04:28 Needs influenza immunization 639282268 Z23 [id number] Jaren Teran [facility] Main Office [address] [address] 10/08/2017 11:15:48 10/08/2017 12:05:52 Adult health examination 807665311 Z00.00 Will update immunizati on status and screen based on risk factors. Regular dental care, periodic eye examinatio ns, and safety measures advised. Distracted driving discussed. She will schedule pap with Dr. 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 should be seen again in December. Family his tory of Hypercholesterolemia 499288286 Z83.42 Increased frequency of urination 707463399 R35.0 Patient c/o frequency x 1 year, will refer to urology and send urine for culture, otherwise stay well hydrated. [id number] Cooper Vicente MD Main Office [address] [place] [address] 03/26/2018 14:00:30 03/26/2018 15:08:53 Influenza-like illness 71079869 B34.9 Upper resp iratory infection 36280473 J06.9 At this point most likely a viral process. Supportive /symptomat ic treatment advised. Call inb/worse or if second sickening occurs. [id number] Sunshine Guzman MD Main Office [address] [place] [address] 05/11/2018 13:47:49 05/11/2018 14:49:10 Acute pharyngitis 146302781 J02.9 Cough 54449304 R05 Upper resp iratory infection 18451211 J06.9 Hx HIV with undectable viral load a few months ago, she has had cough/ congestion symptoms x 1 month. Will treat with Bactrim as this will treat lung infection empiricall y. Flonase daily for help with congestion . Will check CXR. [id number] Deven Younger MD Main Office [address] [place] [address] 05/24/2018 09:38:07 05/25/2018 08:50:02 [id number] Sunshine Guzman MD Main Office [address] [place] [address] [place] [address] 07/29/2018 13:35:41 07/29/2018 14:55:32 Dysuria 63886810 R30.0 negative urine, likely due to overactive bladder. will re-prescri be oxybutynin and she can take half dose BID and see urology again. Increased frequency of urination 122262383 R35.0 Patient c/o frequency x 1 year, will refer to urology and send urine for culture, otherwise stay well hydrated. Fatigue 32126276 R53.83 Family his tory of aneurysm of blood vessel of brain [id number] 9904696 Z82.49 family histoyr in 1st degree relative, her mother. she has been having sharp head pain, dizziness. Papule of skin 355218785 R23.8 warm compresses and use erythromyc in to the the area, safe for eye due to proximity. [id number] Sunshine Guzman MD Main Office [address] [address] [place] [address] 08/11/2018 08:20:32 08/13/2018 08:54:11 [id number] Sunshine Guzman MD Main Office [address] [place] [address] [place] [address] 08/19/2018 14:34:06 08/19/2018 14:48:17 [id number] Sunshine Guzman MD Main Office [address] [place] [address] [place] [address] 10/14/2018 09:35:20 10/14/2018 10:32:24 Adult health examination 221943355 Z00.00 Will update immunizati on status and screen based on risk factors. Regular dental care, periodic eye examinatio ns, and safety measures advised. Distracted driving discussed. HIV detected 456886959 Z 21 congenital ly acquired, followed by ID, undetectab le viral load and high CD4 count Kidney stone 85387447 N2 0.0 diagnosed in august, has urology f/u in november. [id number] Sunshine Guzman MD Main Office [address] [address] [place] [address] 11/11/2018 13:08:40 11/11/2018 13:19:43 Needs influenza immunization 882973550 Z23 [id number] Cooper Vicente MD Main Office [address] [address] [place] [address] 03/23/2019 13:20:16 03/23/2019 14:54:10 Cough 77264379 R05 check cxr to r/o pna - see below rec nasal saline spray prn Pneumonia 960816472 J18. 9 suspect early / walking pna - will give abx, rec probiotics , rec robitussin , rec. albuterol - see below, as well as pred pulse Influenza 5732847 J11.1 dx'd last wk at ER - but pt did not take tamiflu for fear of nausea/vom iting [id number] Cooper Vicente MD Main Office [address] [address] [place] [address] 03/30/2019 13:15:05 03/30/2019 14:08:53 Allergic rhinitis 84385790 J30.9 nasal congestion - rec sudafed prn 1-2 tabs in am and early afternoon, if no help then try flonase Influenza 0172603 J11.1 resolved Pneumonia 241217293 J18. 9 resolved s/p abx and pred pulse [id number] Sunshine Guzman MD Main Office [address] [address] [place] [address] 10/18/2019 12:51:50 10/18/2019 13:52:53 Adult health examination 261047427 Z00.00 Will update immunizati on status and screen based on risk factors. Regular dental care, periodic eye examinatio ns, and safety measures advised. Distracted driving discussed. Needs infl uenza immunization 331159016 Z23 HIV detected 652958228 Z 21 congenital ly acquired, followed by ID, undetectab le viral load and high CD4 count. Taking meds daily. Fatigue 23834182 R53.83 Screening for cardiovascular system disease 969675483 Z13.6 [id number] Sunshine Guzman MD [facility] [address] [place] [address] [place] [address] 12/21/2019 14:23:48 12/21/2019 16:14:17 Exposure to viral disease [id number] 68046 Z03.818 sore throat, cough, headache, diarrhea, nasal congestion s. will get covid testing as she is high risk. Quarantine until test results back. Viral syndrome 331244363 B34.9 viral illness, hydration, rest, tylenol or ibuprofen as needed. call/ return for worsening or concerns. [id number] Sunshine Guzman MD [facility] [address] [place] [address] [place] [address] 02/16/2020 06:57:55 02/16/2020 10:18:27 Counseling 762994012 Z71.9 Health advice, education or counseling done for COVID 19 vaccinatio n. I do recommend she get the vaccine as producing antibodies to spike protein is likely safer than acquiring COVID 19 infection as she is on immunosupp ressants. mRNA vaccine explained to patient. She is very nervous but feels better informed now and will decide whether to get it now when offered or wait until available through us or to the public. I did explain waiting, does put her at risk iof developing covid19 infection. 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 should be seen again in December. [id number] Sunshine Guzman MD [facility] [address] [place] [address] 05/03/2020 08:55:22 05/03/2020 11:23:30 Dizziness 169351143 R42 She is drinking a lot of water. trying to eat better. will try 6.25mg meclizine at bedtime and check labs. Anemia 745410611 D64.9 Vitamin D deficiency 347 77204 E55.9 Eczema 12648600 L30.9 hands from so much washing. mometasone at bedtime, may use gloves over ointment. Urinary tr act infectious disease 36198012 N39.0 very frequent urination. has overactive bladder, not currently on meds. [id number] Sunshine Guzman MD Main Office [address] [place], [place] [address] 06/12/2020 14:00:39 06/12/2020 14:51:14 Migraine [address]0251 G43.[address] csan, normal labs, will tx for migraine headache. hydration, sumatripta n as directed. Also needs to see her eye doctor, [place] was decreased right eye at [facility]. Reduced visual acuity 13 490491 H54.7 Needs new ophtho, hers retired and she hasn't had a good exam done. Trochanter ic bursitis of right hip [id number] 63256 M70.61 right hip tenderness . ibuprofen x 5-7 days BID, RICE, stretches as tolerated. f/u in 2 weeks for recheck [id number] Sunshine Guzman MD Main Office [address] [place] [address] 07/17/2020 13:44:53 07/17/2020 14:29:00 Migraine 26759239 G43.909 headaches have resolved, she has not used sumatripta n. but will use it as needed Reduced visual acuity 13 808907 H54.7 Needs new ophtho, hers retired and she hasn't had a good exam done. waiting on appt Trochanter ic bursitis of right hip [id number] 27127 M70.61 right hip tenderness . ibuprofen x 5-7 days BID, RICE, stretches as tolerated. f/u in 2 weeks for recheck Right flank pain 5669438 09 R10.9 [id number] Sunshine Guzman MD Main Office [address] [place] [address] [place] [address] 11/13/2020 12:51:44 11/13/2020 13:38:37 Adult health examination 718559963 Z00.00 Will update immunizati on status and screen based on risk factors. Regular dental care, periodic eye examinatio ns, and safety measures advised. Distracted driving discussed. HIV detected 113855699 Z 21 congenital ly acquired, followed by ID, undetectab le viral load and high CD4 count. Taking meds daily. seen in July. Screening for cardiovascular system disease 961760264 Z13.6 Impaired f asting glycemia 347029281 R73.01 Degenerati on of cervical intervertebral disc 81688967 M50.30 per XR from ED, she does get neck, head and arm pain. will refer to pssp. Needs infl uenza immunization 341254189 Z23 [id number] Sunshine Guzman MD [facility] [address] [facility] [address] [place] [address] 01/16/2021 08:28:07 01/16/2021 10:04:58 Benign paroxysmal positional vertigo 072376707 H81.10 sx have resolved after taking meclizine. encouraged hydration. if sx persist will refer to ENT. 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 [id number] Sunshine Guzman MD [place] [address] [address] [place] [address] 04/17/2021 14:38:24 04/17/2021 16:14:50 Perianal pain 714848362 R10.2 Perianal abscess confirmed by CT scan. having a lot of pain, unable to get comfortabl e. Will rx tyelnol with codeine to be used as needed. recommend sitz bath or squeezing warm water to area as needed. F/U with colorectal surgery. Perianal abscess 5808992 5 K61.0 I&D by surgery in ED per notes. patient states no incision was made and was told it would drain on it's own. [id number] Sunshine Guzman MD [place] [address] [place] [address] 07/10/2021 08:20:08 07/10/2021 11:05:46 Dark stools 60546036 R19.5 will check bloodwork, sx have improved but she is concerned. Pain in throat 234383086 R07.0 negative strep at UC, negative covid. [id number] AURELIO VALLES MD Main Office [facility] [place] [address] [place] [address] 09/23/2021 14:54:22 09/23/2021 15:36:00 Sebaceous cyst of skin 121522887 L72.3 of the right axillaSmal l circular mobile nodule, non-erythe matous and non-tender to touch. Measuring approximat shannan 0.5cm by 0.3cm.pt is nervous about nodule would like further testing/im aging to be done. Discussed with patient and agreed with US of the axilla to ensure no other possible etiology.P t will be going to a concert in October therefore will order referral to general surgery for removal once patient has returned. Subungual hematoma of foot 945423545 S90.229A Subungual hematoma of the second digit toes bilateralr eassurance providedno damage to the toe noted, only isolated to the nail [id number] Sunshine Guzman MD Main Office [address] [place] [address] [place] [address] 11/15/2021 12:46:09 11/15/2021 13:41:59 Adult health examination 990784658 Z00.00 Will update immunizati on status and screen based on risk factors. Regular dental care, periodic eye examinatio ns, and safety measures advised. Distracted driving discussed. HIV detected 971840604 Z 21 congenital ly acquired, followed by ID, undetectab le viral load and high CD4 count. Taking meds daily. seen in July. Screening for cardiovascular system disease 969206274 Z13.6 Impaired f asting glycemia 392579110 R73.01 Overactive urinary bladder 329932443 N32.81 2mg not helping with sx and she has been not taking med. Will increase to 4mg daily and she will re-start Benign par oxysmal positional vertigo 347308508 H81.10 sx have resolved after taking meclizine. Encouraged hydration. Contact de rmatitis of eyelid 90519111 H01.119 triamcinol one as needed x 7 days on/ 7 days off, do not get too close to eye [id number] AURELIO VALLES MD Main Office 3640 [facility] [address] [facility] [place] [address] 04/08/2022 13:24:15 04/08/2022 14:50:25 Gastroesophageal reflux disease 462770216 K21.9 - pt was having pain in the epigastric region with bloating and fullness- improvemen t noted on omeprazole 40mg and sucralfate 1g TID> pt advised that since pain is better can stop the sucralfate and continue the omeprazole - first time patient complaints of GERD, if patient has a repeat episode will sent to GI for EGD- after medication (omeprazol e) is completed pt was advised to test for H. pylori to ensure it was not the cause of the pain The following lifestyle changes are recommende d and counseled : -Losing weight: Losing weight helps people who are overweight to reduce acid reflux. -Raising the head of your bed six to eight inches -Avoiding foods that trigger symptoms Avoid excessive caffeine, chocolate, alcohol, peppermint , and fatty foods. -Quitting smoking Transition of care from emergency department to self-care 1224525958 24814 Z76.89 - reviewed records from urgent care Sebaceous cyst of skin 231533924 L72.3 - currently resolved- of the right axilla was a small circular mobile nodule, non-erythe matous and non-tender to touch. Measuring approximat shannan 0.5cm by 0.3cm.- US performed which confirmed etiology to be cyst- since cyst resolved, pt was not referred to general surgery [id number] AURELIO VALLES MD Main Office 3640 [facility] 207 [facility] [place] [address] 05/16/2022 13:22:42 05/16/2022 13:52:21 Painless rectal bleeding 778597657 K62.5 - pt had one episode of painless rectal bleeding- pt has a history of rectal bleeding, was several years ago> recent colonoscop y done in 2013 did note hemorrhoid s which could be cause of the bleeding- differenti als limited as patient did not give consent to have rectal exam done, therefore ordered an FOBT test to be done at home and CBC to ensure there was no anemia- will have a follow-up visit shortly with colorectal surgeon. pt was advised to have MD check if hemorrhoid s are present on exam. if no hemorrhoid s are noted, will order repeat colonoscop y- will continue to monitor Gastroesop hageal reflux disease 920672212 K21.9 - currently resolved- pt was having pain in the epigastric region with bloating and fullness- completed omeprazole 40mg and completed two weeks of sucralfate 1g TID- first time patient complains of GERD, if patient has a repeat episode will sent to GI for EGD- after medication (omeprazol e) is completed pt was advised to test for H. pylori to ensure it was not the cause of the pain> pt completed the course on 05/14, will do H pylori testing on 05/28 The following lifestyle changes are recommende d and counseled :-Losing weight: Losing weight helps people who are overweight to reduce acid reflux.-Ra ising the head of your bed six to eight inches-Emery iding foods that trigger symptoms Avoid excessive caffeine, chocolate, alcohol, peppermint , and fatty foods.-Ulisses tting smoking [id number] Sunshine Guzman MD Main Office [address] [facility] 207 [facility] [place] [address] 11/18/2022 11:10:47 11/18/2022 12:15:59 Adult health examination 142341573 Z00.00 Will update immunizati on status and screen based on risk factors. Regular dental care, periodic eye examinatio ns, and safety measures advised. Distracted driving discussed. Benign par oxysmal positional vertigo 788483069 H81.10 sx have resolved after taking meclizine. Encouraged hydration. Low back pain 821322616 M54.50 Hyperlipidemia 63982379 E78.5 Impaired f asting glycemia 213982249 R73.01 Urinary tr act infectious disease 95076669 N39.0 very frequent urination. has overactive bladder, not currently on meds. Candidiasis of mouth 797 50444 B37.0 [id number] Deven Younger MD [facility] 3640 [facility] 207 [place] [address] 03/23/2023 13:37:20 03/23/2023 14:31:02 Viral upper respiratory tract infection 027529183 J06.9 [id number] Sunshine Guzman MD Main Office [address] [place] [address] 06/05/2023 12:42:55 06/05/2023 13:44:56 Hematochezia 119210065 K92.1 will see colorectal on 06/09, does have a fissure. Use water/ wet washcloth for gentle wiping, pat dry, use triple paste as a barrier. 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 Use water/ wet washcloth for gentle wiping, pat dry, use triple paste as a barrier. Hand eczema 999816503 L3 0.9 will send for eucrisa, has bilateral eczema to hands- erythemati us, dry, itchy and has a patch to left lower leg. Atopic thai matitis of eyelid 242624448 L20.9 [id number] Sunshine Guzman MD Main Office 36[address] [facility] [address] [place] [address] 12/03/2023 12:57:43 12/03/2023 14:21:45 Adult health examination 209440007 Z00.00 Will update immunizati on status and screen based on risk factors. Regular dental care, periodic eye examinatio ns, and safety measures advised. Distracted driving discussed. 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 Anal fissure 64568681 K6 0.2 does have fissure, appt in July for f/u. Abdominal pain 07688483 R10.9 Cobalamin deficiency 190 617932 E53.8 Impaired f asting glycemia 101714376 R73.01 Easy bruising 231590176 R58 Benign par oxysmal positional vertigo 579431847 H81.10 sx have resolved after taking meclizine. Encouraged hydration. [id number] Sunshine Guzman MD Main Office 3640 [facility] [address] [place] [address] 12/16/2023 09:28:25 12/16/2023 10:02:12 Acute pharyngitis 480874220 J02.9 negative strep Exposure t o viral disease 0681655060 43075 Z03.818 home test was , will check just to be sure. Aphthous u lcer of mouth 184127794 K12.0 apthous ulcer to left tonsil, she believes she can reach it with a q tip. triamcinol one dental paste 2-3 times per day after eating x 7 days as needed. Good oral hygeine, handwashin g [id number] Cooper Vicente MD Main Office 36[address] [facility] [address] [place] [address] 06/04/2024 10:54:43 06/04/2024 12:00:45 Acute pharyngitis 641365257 J02.9 Strep testing negative, most likely allergic inflammati on as the cause. Rule out acute viral process and treat accordingl y. Otherwise monitor with allergy therapy. Allergic r hinitis caused by pollen 82634344 J30.1 19864838 Advised to use meds consistent ly. Call with any problems or if symptoms fail to improve. 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 Health Concerns Section Related Observation LastModified by Organization Detai ls LastModified Time None Recorded Concern Status LastModified by Organization Details LastModified Time None Recorded Advance Directives Directive Y: HCP Payers Insurance Date Sequence Insurance Name Policy Number Policy Gregg Covered Member ID Gregg Member ID Guarantor Name 01/11/2021 1 [place]ARE [place]: [place] Dejah Biggs [id number] Dejah Biggs 06/06/2024 1 MEDICAID-[place]: [facility] Dejah Biggs [id number] Dejah Biggs Notes Date Note Type Note Provider Name and Address Organization Details Recorded Time 4 text/html ROS as noted in the HPI TH visit for URI symptoms. Notes sore throat and nasal congestion starting 1 week ago. Has since noticed resolution of sore throat symptoms but has persistent nasal congestion. Denies ear pain, sinus pressure/pain, cough, shortness of breath. 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 Deven Younger MD [address], [address], [facility] 03/23/2023 14:27:18 4 text/html Generic HPI TemplateReported by Patientyesterday had BM around 11am, wiped and had bleeding on TP, checked with mirror and could see gushing blood . showered and all was ok, then had another BM and had bleeding again.Today had BM but no bleeding, no pain, no itching. She called colorectal surgery, will be seen 06/09 but needs new referral. ASAEL Strong [address] [place] [address], [place], [address], [facility] 06/05/2023 14:05:05 4 text/html Generic HPI TemplateReported by PatientPresents for PE,Saw eye doctor in June, she looked up at eclipse for a few seconds then became concerned, had US of her eyes- normal. Saw breast specialist Thursday, has mammo in April and september US. - UTD with visits with ID, had bloodwork November. taking meds as directed, not missing doses. - Cardiology once yearly. - Has concerns about being more forgetful is walking more but not daily and is feeling more hungry- Has not been eating a lot of carbs/ meat - Has been more dizzy, even if she is home. trying to hydrate. - has been noticing she switches words, says them backwards or wrong word. Jaren Teran, [facility] [address] [place] [address], [place], [address], [facility] 12/03/2023 14:31:54 4 text/html Throat PainReported by PatientPatient presents with sore throat, sx started Thursday, was visiting her cousin in the hospital. Today has a headache, no congestion, sneezing, no body aches or chills, no fever, no N/V/D. Did notice a white spot this morning on left side of throat Carla cruz [facility] 12/29/2023 16:36:03 5 text/html Throat PainReported by PatientHPIFor location, patient reportsbilateral. Upper Respiratory SymptomsReported by PatientUpper Respiratory SymptomsFor quality, patient reportsdry cough. For context, patient reportssick contact (at the gym)but reportsno foreign travelandnon-smoker. For location, patient reportsheadandthroat. For severity, patient reportsmild. For onset/timing, patient reportssuddenandactual date: (06/02).39 y/o HIV postive patient with undetectable viral load her with several days of URI symptoms. Vague history of allergies. Carla cruz [facility] 06/17/2024 09:36:15 OBGyn Episode No OBEpisode recorded.
--- OUTSIDE RECORDS SUMMARY | 2024-11-13 19:51 | XMS_ITS | Clinical Summary ---
Author Organization [facility] Address [address] [place] [address] Phone Care Team Providers Care System Administrator Name Role Phone Yvan Velarde Primary Care Provider [phone] Immunizations Immunization Administration Dates Next Due DTP 05/21/1989, 6,1984,1984,1984 Hep B, ped/adol 05/30/1999,07/03/1998,11/15/1995 Hib (HbOC) 10/13/1985 IPV 05/21/1989 MMR 10/20/1996,07/18/1985 OPV 10/13/1985,1984,1984 Td (adult) (Teniva), 5 Lf t etanus toxoid, PF, adsorbed 07/03/1998 Varicella 11/29/1996 Social History Tobacco Use Types Packs/Day Years Used Date Smoking Tobacco: Never Assessed Comments Unknown Sex and Gender Information Value Date Recorded Sex Assigned at Not on file Legal Sex Female 4:16 PM EDT Gender Identity Not on file Sexual Orientation Not on file Plan of Treatment Health Maintenance Due Date Last Done Comments Varicella Vaccines (2 of 2 - 2-dose childhood series) 02/21/1997 11/29/1996 DTaP,Tdap,and Td Vaccines (6 - Tdap) 07/04/1998 07/03/1998, 05/21/1989, 10/13/1985, Additional history exists HPV Vaccines (1 - 3-dose SCDM series) 04/15/2011 Influenza Vaccines (#1) 2024 COVID-19 Vaccine ( season) 2024 HIB Vaccines Completed 10/13/1985 IPV Vaccines Completed 05/21/1989, 05/1985, 1984, Additional history exists MMR Vaccines Completed 10/20/1996, 07/18/1985 Hepatitis B Vaccines Completed 05/30/1999, 07/03/1998, 11/15/1995 Hepatitis A Vaccines Aged Out No long er eligible based on patient's age to complete this topic Men B Vaccine Aged Out No longer elig ible based on patient's age to complete this topic Meningococcal Vaccine Aged Out No eli talya eligible based on patient's age to complete this topic Pneumococcal Vaccine Aged Out No long er eligible based on patient's age to complete this topic Care Teams System Administrator Relationship Specialty Start Date End Date Yvan Velarde [address] [place] [address] PCP - General 09/19/16
[2024-11-13 22:17] VITALS: BP 105/66; PULSE 98; RESP 14; TEMP 37.1; O2SAT 98
[2024-11-13 22:18] VITALS: BP 105/66; PULSE 98; RESP 14; TEMP 37.1; O2SAT 98
== END 2024-11-13 22:19 | disposition home or self-care (01) ==
PROVIDERS: Emergency Provider Emergency Medicine
DX: M77.9 Enthesopathy, unspecified (principal)
CPT/HCPCS: 72040; 73110; 73130; 99283; 99284

== ENCOUNTER → 2024-11-13 17:49 | Outpatient (BNV) | payer MEDICAID, SELFPAY | PROVIDERS: Visit Provider Radiology Diagnostic Radiology | DX: M54.2 Cervicalgia (principal); M79.642 Pain in left hand; M25.532 Pain in left wrist | CPT/HCPCS: 72040; 73110; 73130 ==